=== PATIENT | male | born 1960 | race Caucasian/White ===

== ENCOUNTER 2017-12-01 09:08 | Inpatient (IN) ==
[2017-12-01 10:19] LABS: Bilirubin,Urine Negative (Negative); Blood,Urine Negative (Negative); Clarity,Urine Clear (Clear); Color,Urine Yellow (Yellow); Glucose,Urine (UA) Normal (Normal); Ketones,Urine Negative (Negative); Leukocyte Esterase,Urine Negative (Negative); Nitrite,Urine Negative (Negative); PH,Urine 6.5 pH Units (5.0-8.0); Protein,Urine Trace mg/dL (Neg-Trace); Urobilinogen,Urine Normal (Normal)
[2017-12-01 10:21] LABS: Basophils % 0.5 %; Eosinophils # 0.1 K/mcL (0.0-0.6); Eosinophils % 1.8 %; Hematocrit 37.1 % (37.5-50.1); Hemoglobin 12.7 g/dL (12.9-16.9); Immature Granulocytes % 0.3 % (0-4); Lymphocytes # 1.3 K/mcL (0.6-4.6); Lymphocytes % 22.3 %; Mean Corpuscular HGB Conc 34.2 g/dL (31.6-35.5); Mean Corpuscular Hemoglobin 32.6 pg (28.0-33.3); Mean Corpuscular Volume 95.4 fL (83.0-100.0); Mean Platelet Volume 8.9 fL (9.4-12.4); Monocytes # 0.5 K/mcL (0.0-1.3); Monocytes % 8.8 %; Platelet Count 143 K/mcL (140-400); Red Blood Count 3.89 M/mcL (4.19-5.50); Red Cell Distribution Width 13.6 % (11.5-14.5); Segmented Neutrophils % 66.3 %
[2017-12-01 10:22] LABS: Bacteria,Urine None Seen per hpf (None-Few); Hyaline Casts,Urine None Seen per lpf (None-Few); RBC,Urine 0-3 per hpf (0-3); Squamous Epithelial Cell,Urine Few per lpf (None-Few); WBC,Urine 0-3 per hpf (0-3)
[2017-12-01 10:37] LABS: Amphetamine Screen,Urine Negative ng/mL (Cutoff=1000); Barbiturate Screen,Urine Negative ng/mL (Cutoff=200); Benzodiazepines Screen,Urine Negative ng/mL (Cutoff=200); Cannabinoid Screen,Urine Negative ng/mL (Cutoff = 50); Cocaine Screen,Urine Negative ng/mL (Cutoff= 300); Opiate Screen,Urine Negative ng/mL (Cutoff=300); Phencyclidine Screen,Urine Negative ng/mL (Cutoff=25)
[2017-12-01 10:47] LABS: Acetaminophen < 10 mcg/mL (10-20); Alanine Aminotransferase 9 Units/L (7-52); Albumin 4.1 g/dL (3.5-5.7); Albumin/Globulin Ratio 1.2 (1.1-2.2); Alkaline Phosphatase 66 Units/L (34-104); Aspartate Amino Transferase 9 Units/L (13-39); BUN/Creatinine Ratio 17 (6-26); Bilirubin,Direct 0.1 mg/dL (0.0-0.2); Bilirubin,Indirect 0.4 mg/dL (0.0-1.2); Bilirubin,Total 0.5 mg/dL (0.3-1.0); Blood Urea Nitrogen 24 mg/dL (6-20); Calcium 9.7 mg/dL (8.6-10.3); Carbon Dioxide 33 mEq/L (23-29); Chloride 94 mEq/L (98-107); Ethanol < 10 mg/dL (Less than 10); Globulin 3.3 g/dL (2.4-3.5); Glucose 120 mg/dL (70-105); Osmolality,Calculated 283 (280-300); Potassium 3.7 mEq/L (3.5-5.1); Salicylate < 2.5 mg/dL (15.0-30.0); Sodium 134 mEq/L (136-145); Total Protein 7.4 g/dL (6.4-8.9); eGFR For African Americans > 60 (> 60); eGFR For Non-African Americans 53 (> 60)
[2017-12-01 10:59] LABS: Thyroid Stimulating Hormone 0.611 mcIU/mL (0.340-5.600)
--- NOTE | 2017-12-01 11:04 | Emergency Department Note ---
Disposition Clinical Impression: Suicidal ideation, Acute psychosis Disposition: Admitted As Inpatient Condition: Fair Time of Disposition: 14:49 Psych HPI - General Chief Complaint: ED Psychiatric Symptoms Stated Complaint: Psych eval Time Seen by Provider: 12/01/17 09:31 Source: patient, other Mode of arrival: private vehicle Limitations: no limitations Nursing Notes Reviewed: Yes Vital Signs Reviewed: Yes - History of Present Illness Pt complaint: feels depressed, anxiety, other (Need medicine for schizophrenia, and there are bugs injecting poisonous toxins into me.) If medical clearance, reason: psychiatric condition Onset (ago): week(s) Duration: intermittent, getting worse History of similar episodes: Yes Improves with: medication Worsens with: none Context: not taking psychiatric medications Alleged intoxication: No Associated Psychiatric Symptoms: depression, suicidal ideation, delusions, anxiety Associated symptoms: Reports: denies other symptoms. Denies: confusion, headache, shortness of breath, nausea, vomiting, syncope, insomnia Traumatic symptoms: denies traumatic injury Treatments prior to arrival: none Self harm or harm to others: admits thoughts of self harm, denies having a plan - Related Data Home Medications Medication Instructions Recorded Confirmed Aspirin [Adult Low Dose Aspirin EC] 81 mg PO DAILY PRN 08/16/15 12/01/17 Albuterol Sulfate [Ventolin Hfa] 2 puff IH Q4-6H PRN 12/01/17 12/01/17 Vitamin E 100 unit PO DAILY 12/01/17 12/01/17 Previous Rx's Medication Instructions Recorded Lisinopril-HCTZ 20-12.5 [Prinzide 1 each PO DAILY #21 tablet 04/29/16 20-12.5] Allergies Allergy/AdvReac Type Severity Reaction Status Date / Time acetaminophen [From Vicodin] Allergy Hallucinati Verified 07/18/15 12:34 ng hydrocodone [From Vicodin] Allergy Hallucinati Verified 07/18/15 12:34 ng Penicillins [PCN] Allergy childhood Verified 08/16/15 07:59 reaction "hot feeling inside" aspirin [ASA] AdvReac Abdominal Verified 04/29/16 00:18 Pain All systems ED: reviewed and negative except as stated. Review of Systems: As Per HPI Constitutional: Denies: fever, chills, weakness, weight change Eyes: Denies: eye pain, eye discharge, vision change ENT ED: Denies: ear pain, throat pain, dental pain, hearing loss, epistaxis, congestion, dysphagia Cardiovascular: Denies: chest pain, palpitations, dyspnea on exertion, edema, syncope Respiratory: Denies: cough, dyspnea, wheezes, hemoptysis, stridor Gastrointestinal: Denies: abdominal pain, nausea, vomiting, diarrhea, constipation, hematemesis, melena, hematochezia Genitourinary: Denies: urgency, dysuria, frequency, hematuria Musculoskeletal: Denies: back pain, neck pain, joint swelling, arthralgia, myalgia Integumentary: Denies: rash, abrasion, lesions, pruritus Neurological: Denies: headache, weakness, numbness, paresthesias, confusion, abnormal gait, vertigo Psychiatric: Reports: depression. Denies: anxiety, suicidal thoughts, homicidal thoughts, auditory hallucinations, visual hallucinations Endocrine: Denies: fatigue, heat or cold intolerance, polydipsia, polyuria Hematological/Lymphatic: Denies: easy bleeding, easy bruising, lymphadenopathy Allergic/Immunologic: Denies: facial swelling, urticaria, itchy eyes Past Medical History - Past Medical History Attestation: Yes The following information was validated with the patient. Source: patient Medical history: Reports: COPD, hypertension, kidney stones, migraine Surgical history: Reports: no surgical history Psychiatric history: Reports: anxiety, depression, schizophrenia, other - Social History Smoking Status: Current every day smoker Smokeless Tobacco Status: No Alcohol use: Reports: none, occasionally Drug use: Reports: none, marijuana Physical Exam - General Limitations: no limitations General appearance: alert, in no apparent distress, anxious - Head Head exam: atraumatic, normocephalic, normal inspection - Eye Eye exam: Present: normal appearance, PERRL. Absent: scleral icterus, conjunctival injection, periorbital swelling - ENT ENT exam: mucous membranes dry - Neck Neck exam: Present: normal inspection, full ROM, trachea midline. Absent: tenderness, meningismus, lymphadenopathy - Chest Chest inspection: Present: normal inspection - Respiratory Respiratory exam: Present: normal lung sounds bilaterally. Absent: respiratory distress - Cardiovascular Cardiovascular exam: Present: regular rate, normal rhythm, normal heart sounds - Extremities Exam Extremities exam: Present: full ROM, normal capillary refill. Absent: pedal edema - Expanded Lower Extremity Exam Gait: observed and normal - Back Exam Back exam: Present: normal inspection - Neurological Exam Neurological exam: Present: alert, oriented X3, CN II-XII intact, normal gait - Psychiatric Psychiatric exam: Present: normal affect, normal mood - Skin Skin exam: Present: warm, dry, intact, normal color Course Course Narrative: Patient with history of schizophrenia, presents with a friend for evaluation of depression. He also describes delusions about bugs injecting poison into his body. He has been off his medication for several months. On exam, he is very pleasant, cooperative and conversant. He does seem to be paranoid, and has a definite preoccupation with adventism. His physical exam is normal. Labs have been ordered per [facility] protocol. Patient's labs show renal insufficiency. Creatinine 1.36. He has had similar and even higher creatinines in the past. I suspect dehydration as the patient is homeless. He is, however, tolerating by mouth fluids. The renal insufficiency does not preclude him from psychiatric evaluation. [facility] has been contacted. Patient was seen by [facility] RN Myles. He consulted with the psychiatrist. They feel that the patient would benefit from inpatient evaluation and treatment. They have requested that a pink slip be filled out. Case was discussed with Dr. Cha. He has had [id number] time with the patient and agrees with the assessment, plan. - Consultations Consultation #1: Patient medically cleared [facility] consulted Time: 11:02 Vital Signs Temperature 98.3 F 12/01/17 09:22 Pulse Rate 91 12/01/17 09:22 Respiratory Rate 18 12/01/17 09:22 Blood Pressure 134/93 12/01/17 09:22 O2 Sat by Pulse Oximetry 98 12/01/17 09:22 Temperature 98.6 F 12/01/17 15:40 Pulse Rate 84 12/01/17 15:40 Respiratory Rate 16 12/01/17 15:40 Blood Pressure 162/95 12/01/17 15:40 O2 Sat by Pulse Oximetry 98 12/01/17 09:22 Oxygen Delivery Oxygen Delivery Room Air Psych - Lab Data Lab results reviewed: Yes I reviewed the patient's lab results. Result diagrams: 12/01/17 10:11 12/01/17 10:11 Lab Results 12/01/17 12/01/17 12/01/17 Range/Units 10:06 10:08 10:11 WBC 6.0 (4.3-11.1) K/mcL RBC 3.89 L (4.19-5.50) M/mcL Hgb 12.7 L (12.9-16.9) g/dL Hct 37.1 L (37.5-50.1) % MCV 95.4 (83.0-100.0) fL MCH 32.6 (28.0-33.3) pg MCHC 34.2 (31.6-35.5) g/dL RDW 13.6 (11.5-14.5) % Plt Count 143 (140-400) K/mcL MPV 8.9 L (9.4-12.4) fL Immature Gran % 0.3 (0-4) % Seg Neutrophils % 66.3 % Lymphocytes % 22.3 % Monocytes % 8.8 % Eosinophils % 1.8 % Basophils % 0.5 % Neutrophils # 4.0 (1.6-8.9) K/mcL Lymphocytes # 1.3 (0.6-4.6) K/mcL Monocytes # 0.5 (0.0-1.3) K/mcL Eosinophils # 0.1 (0.0-0.6) K/mcL Basophils # 0.0 (0.0-0.2) K/mcL Sodium (136-145) mEq/L Potassium (3.5-5.1) mEq/L Chloride (98-107) mEq/L Carbon Dioxide (23-29) mEq/L BUN (6-20) mg/dL Creatinine (0.70-1.30) mg/dL Est GFR ( Amer) (> 60) Est GFR (Non-Af Amer) (> 60) BUN/Creatinine Ratio (6-26) Glucose (70-105) mg/dL Calculated Osmolality (280-300) Calcium (8.6-10.3) mg/dL Total Bilirubin (0.3-1.0) mg/dL Direct Bilirubin (0.0-0.2) mg/dL Indirect Bilirubin (0.0-1.2) mg/dL AST (13-39) Units/L ALT (7-52) Units/L Alkaline Phosphatase (34-104) Units/L Serum Total Protein (6.4-8.9) g/dL Albumin (3.5-5.7) g/dL Globulin (2.4-3.5) g/dL Albumin/Globulin Ratio (1.1-2.2) TSH (0.340-5.600) mcIU/mL Urine Color Yellow (Yellow) Urine Clarity Clear (Clear) Urine pH 6.5 (5.0-8.0) pH Units Ur Specific Faison 1.020 (1.010-1.025) Urine Protein Trace (Neg-Trace) mg/dL Urine Glucose (UA) Normal (Normal) mg/dL Urine Ketones Negative (Negative) mg/dL Urine Blood Negative (Negative) Urine Nitrite Negative (Negative) Urine Bilirubin Negative (Negative) Urine Urobilinogen Normal (Normal) mg/dL Ur Leukocyte Esterase Negative (Negative) Urine Microscopic RBC 0-3 (0-3) per hpf Urine Microscopic WBC 0-3 (0-3) per hpf Ur Squamous Epith Cells Few (None-Few) per lpf Urine Bacteria None Seen (None-Few) per hpf Hyaline Casts None Seen (None-Few) per lpf Salicylates (15.0-30.0) mg/dL Urine Opiates Screen Negative (Ywresa=885) ng/mL Acetaminophen (10-20) mcg/mL Ur Barbiturates Screen Negative (Iarllw=198) ng/mL Ur Phencyclidine Scrn Negative (Cutoff=25) ng/mL Ur Amphetamines Screen Negative (Bzrubf=4686) ng/mL U Benzodiazepines Scrn Negative (Xvczfi=596) ng/mL Urine Cocaine Screen Negative (Cutoff= 300) ng/mL U Marijuana (THC) Screen Negative (Cutoff = 50) ng/mL Ethyl Alcohol (Less than 10) mg/dL 12/01/17 Range/Units 10:11 WBC (4.3-11.1) K/mcL RBC (4.19-5.50) M/mcL Hgb (12.9-16.9) g/dL Hct (37.5-50.1) % MCV (83.0-100.0) fL MCH (28.0-33.3) pg MCHC (31.6-35.5) g/dL RDW (11.5-14.5) % Plt Count (140-400) K/mcL MPV (9.4-12.4) fL Immature Gran % (0-4) % Seg Neutrophils % % Lymphocytes % % Monocytes % % Eosinophils % % Basophils % % Neutrophils # (1.6-8.9) K/mcL Lymphocytes # (0.6-4.6) K/mcL Monocytes # (0.0-1.3) K/mcL Eosinophils # (0.0-0.6) K/mcL Basophils # (0.0-0.2) K/mcL Sodium 134 L (136-145) mEq/L Potassium 3.7 (3.5-5.1) mEq/L Chloride 94 L (98-107) mEq/L Carbon Dioxide 33 H (23-29) mEq/L BUN 24 H (6-20) mg/dL Creatinine 1.38 H (0.70-1.30) mg/dL Est GFR ( Amer) > 60 (> 60) Est GFR (Non-Af Amer) 53 L (> 60) BUN/Creatinine Ratio 17 (6-26) Glucose 120 H (70-105) mg/dL Calculated Osmolality 283 (280-300) Calcium 9.7 (8.6-10.3) mg/dL Total Bilirubin 0.5 (0.3-1.0) mg/dL Direct Bilirubin 0.1 (0.0-0.2) mg/dL Indirect Bilirubin 0.4 (0.0-1.2) mg/dL AST 9 L (13-39) Units/L ALT 9 (7-52) Units/L Alkaline Phosphatase 66 (34-104) Units/L Serum Total Protein 7.4 (6.4-8.9) g/dL Albumin 4.1 (3.5-5.7) g/dL Globulin 3.3 (2.4-3.5) g/dL Albumin/Globulin Ratio 1.2 (1.1-2.2) TSH 0.611 (0.340-5.600) mcIU/mL Urine Color (Yellow) Urine Clarity (Clear) Urine pH (5.0-8.0) pH Units Ur Specific Faison (1.010-1.025) Urine Protein (Neg-Trace) mg/dL Urine Glucose (UA) (Normal) mg/dL Urine Ketones (Negative) mg/dL Urine Blood (Negative) Urine Nitrite (Negative) Urine Bilirubin (Negative) Urine Urobilinogen (Normal) mg/dL Ur Leukocyte Esterase (Negative) Urine Microscopic RBC (0-3) per hpf Urine Microscopic WBC (0-3) per hpf Ur Squamous Epith Cells (None-Few) per lpf Urine Bacteria (None-Few) per hpf Hyaline Casts (None-Few) per lpf Salicylates < 2.5 L (15.0-30.0) mg/dL Urine Opiates Screen (Tlynlw=801) ng/mL Acetaminophen < 10 L (10-20) mcg/mL Ur Barbiturates Screen (Xbpzyj=934) ng/mL Ur Phencyclidine Scrn (Cutoff=25) ng/mL Ur Amphetamines Screen (Shmayw=9010) ng/mL U Benzodiazepines Scrn (Fsbcyd=778) ng/mL Urine Cocaine Screen (Cutoff= 300) ng/mL U Marijuana (THC) Screen (Cutoff = 50) ng/mL Ethyl Alcohol < 10 (Less than 10) mg/dL Psychiatric Medical Clearance - Medical Clearance Checklist Does the patient have a NEW psychiatric condition?: Yes Any abnormalities indicating possible medical illness?: No Any history of medical issues?: Yes Medical History: Pneumonia (Acute) Hypoxia (Acute) Uncontrolled hypertension (Acute) Community acquired pneumonia (Acute) COPD exacerbation (Acute) Accelerated hypertension (Acute) Altered mental state (Acute) DVT prophylaxis (Acute) Schizophrenia (Chronic) Calculus of left kidney (Acute) Acute psychosis (Acute) Suicidal ideation (Acute) Hematuria (Inactive) Hypertensive urgency (Inactive) Kidney calculus (Inactive) Left flank pain (Inactive) No Social History Section defined Any abnormal vital signs prior to transfer?: No Current Vitals: Last Vital Signs Temp 98.6 F 12/01/17 15:40 Pulse 84 12/01/17 15:40 Resp 16 12/01/17 15:40 BP 162/95 12/01/17 15:40 Pulse Ox 98 12/01/17 09:22 Is the patient intoxicated or cognitively impaired?: No Psychiatric Lab Panel: Drug Levels and Toxicity 12/01/17 12/01/17 10:08 10:11 Urine Opiates Screen Negative Acetaminophen < 10 L Ur Barbiturates Screen Negative Ur Phencyclidine Scrn Negative Ur Amphetamines Screen Negative U Benzodiazepines Scrn Negative Urine Cocaine Screen Negative U Marijuana (THC) Screen Negative Ethyl Alcohol < 10 Any abnormalities on the physical exam?: No Any abnormal labs?: Yes Abnormal Labs: Abnormal lab results RBC 3.89 M/mcL (4.19-5.50) L 12/01/17 10:11 Hgb 12.7 g/dL (12.9-16.9) L 12/01/17 10:11 Hct 37.1 % (37.5-50.1) L 12/01/17 10:11 MPV 8.9 fL (9.4-12.4) L 12/01/17 10:11 Sodium 134 mEq/L (136-145) L 12/01/17 10:11 Chloride 94 mEq/L (98-107) L 12/01/17 10:11 Carbon Dioxide 33 mEq/L (23-29) H 12/01/17 10:11 BUN 24 mg/dL (6-20) H 12/01/17 10:11 Creatinine 1.38 mg/dL (0.70-1.30) H 12/01/17 10:11 Est GFR (Non-Af Amer) 53 (> 60) L 12/01/17 10:11 Glucose 120 mg/dL (70-105) H 12/01/17 10:11 AST 9 Units/L (13-39) L 12/01/17 10:11 Salicylates < 2.5 mg/dL (15.0-30.0) L 12/01/17 10:11 Acetaminophen < 10 mcg/mL (10-20) L 12/01/17 10:11 If abnormals exist; proposed resolution:: By mouth fluids Does the patient require durable medical equiptment?: No Is the patient ambulatory?: Yes Is the patient a fall risk?: No Has the patient been medically cleared?: Yes Any acute medical condition require Tx prior to transfer?: No Statement of Medical Clearance: I have evaluated the patient, reviewed diagnostic information, and certify that the patient's medical condition is sufficiently stable that transfer to the psychiatric unit does not pose a significant risk of deterioration. Attestation Statement - Attestation Attestation: I, Josh Cha DO have provided [id number] time during the care of this patient. Detailed review the presentation, symptoms, medical history were discussed and reviewed with the mid-level provider Sharyn Villa PA-C/SENIOR COMPENSATION ANALYST. Medical intervention labs and imaging studies were reviewed in detail. See full documentation of physical exam and course of care in the mid-level provider 's note. I agree with the determined course of care, medical intervention and disposition put forth by the mid-level provider. See below documentation for changes or alterations in documentation.
--- NOTE | 2017-12-01 13:00 | Emergency Department Note ---
Disposition Clinical Impression: Suicidal ideation Disposition: Admitted As Inpatient Condition: Good Referrals: NONE,PCP [Primary Care Provider] - Forms: ED Satisfaction Letter Time of Disposition: 13:00 General Adult HPI - General Chief complaint: ED Psychiatric Symptoms Stated complaint: Psych eval Time Seen by Provider: 12/01/17 09:31 Source: patient, other Mode of arrival: private vehicle Limitations: no limitations - History of Present Illness Pain Scale: 5 - Related Data Home Medications Medication Instructions Recorded Confirmed Aspirin [Adult Low Dose Aspirin EC] 81 mg PO DAILY PRN 08/16/15 12/01/17 Vitamin E 100 unit PO 12/01/17 Previous Rx's Medication Instructions Recorded Lisinopril-HCTZ 20-12.5 [Prinzide 1 each PO DAILY #21 tablet 04/29/16 20-12.5] Allergies Allergy/AdvReac Type Severity Reaction Status Date / Time acetaminophen [From Vicodin] Allergy Hallucinati Verified 07/18/15 12:34 ng hydrocodone [From Vicodin] Allergy Hallucinati Verified 07/18/15 12:34 ng Penicillins [PCN] Allergy childhood Verified 08/16/15 07:59 reaction "hot feeling inside" aspirin [ASA] AdvReac Abdominal Verified 04/29/16 00:18 Pain Constitutional: Denies: fever, chills, weakness, weight change Eyes: Denies: eye pain, eye discharge, vision change ENT ED: Denies: ear pain, throat pain, dental pain, hearing loss, epistaxis, congestion, dysphagia Cardiovascular: Denies: chest pain, palpitations, dyspnea on exertion, edema, syncope Respiratory: Denies: cough, dyspnea, wheezes, hemoptysis, stridor Gastrointestinal: Denies: abdominal pain, nausea, vomiting, diarrhea, constipation, hematemesis, melena, hematochezia Genitourinary: Denies: urgency, dysuria, frequency, hematuria Musculoskeletal: Denies: back pain, neck pain, joint swelling, arthralgia, myalgia Integumentary: Denies: rash, abrasion, lesions, pruritus Neurological: Denies: headache, weakness, numbness, paresthesias, confusion, abnormal gait, vertigo Psychiatric: Reports: depression. Denies: anxiety, suicidal thoughts, homicidal thoughts, auditory hallucinations, visual hallucinations Endocrine: Denies: fatigue, heat or cold intolerance, polydipsia, polyuria Hematological/Lymphatic: Denies: easy bleeding, easy bruising, lymphadenopathy Allergic/Immunologic: Denies: facial swelling, urticaria, itchy eyes Past Medical History - Past Medical History Medical history: Reports: COPD, hypertension, kidney stones, migraine Surgical history: Reports: no surgical history Psychiatric history: Reports: anxiety, depression, schizophrenia, other - Social History Smoking Status: Current every day smoker Smokeless Tobacco Status: No Alcohol use: Reports: none, occasionally Drug use: Reports: none, marijuana Physical Exam - General Limitations: no limitations General appearance: alert, in no apparent distress, anxious Course Vital Signs Temperature 98.3 F 12/01/17 09:22 Pulse Rate 91 12/01/17 09:22 Respiratory Rate 18 12/01/17 09:22 Blood Pressure 134/93 12/01/17 09:22 O2 Sat by Pulse Oximetry 98 12/01/17 09:22 Temperature 98.3 F 12/01/17 09:22 Pulse Rate 91 12/01/17 09:22 Respiratory Rate 18 12/01/17 09:22 Blood Pressure 134/93 12/01/17 09:22 O2 Sat by Pulse Oximetry 98 12/01/17 09:22 Oxygen Delivery Oxygen Delivery Room Air Medical Decision Making - Lab Data Result diagrams: 12/01/17 10:11 12/01/17 10:11 Lab Results 12/01/17 12/01/17 12/01/17 Range/Units 10:06 10:08 10:11 WBC 6.0 (4.3-11.1) K/mcL RBC 3.89 L (4.19-5.50) M/mcL Hgb 12.7 L (12.9-16.9) g/dL Hct 37.1 L (37.5-50.1) % MCV 95.4 (83.0-100.0) fL MCH 32.6 (28.0-33.3) pg MCHC 34.2 (31.6-35.5) g/dL RDW 13.6 (11.5-14.5) % Plt Count 143 (140-400) K/mcL MPV 8.9 L (9.4-12.4) fL Immature Gran % 0.3 (0-4) % Seg Neutrophils % 66.3 % Lymphocytes % 22.3 % Monocytes % 8.8 % Eosinophils % 1.8 % Basophils % 0.5 % Neutrophils # 4.0 (1.6-8.9) K/mcL Lymphocytes # 1.3 (0.6-4.6) K/mcL Monocytes # 0.5 (0.0-1.3) K/mcL Eosinophils # 0.1 (0.0-0.6) K/mcL Basophils # 0.0 (0.0-0.2) K/mcL Sodium (136-145) mEq/L Potassium (3.5-5.1) mEq/L Chloride (98-107) mEq/L Carbon Dioxide (23-29) mEq/L BUN (6-20) mg/dL Creatinine (0.70-1.30) mg/dL Est GFR ( Amer) (> 60) Est GFR (Non-Af Amer) (> 60) BUN/Creatinine Ratio (6-26) Glucose (70-105) mg/dL Calculated Osmolality (280-300) Calcium (8.6-10.3) mg/dL Total Bilirubin (0.3-1.0) mg/dL Direct Bilirubin (0.0-0.2) mg/dL Indirect Bilirubin (0.0-1.2) mg/dL AST (13-39) Units/L ALT (7-52) Units/L Alkaline Phosphatase (34-104) Units/L Serum Total Protein (6.4-8.9) g/dL Albumin (3.5-5.7) g/dL Globulin (2.4-3.5) g/dL Albumin/Globulin Ratio (1.1-2.2) TSH (0.340-5.600) mcIU/mL Urine Color Yellow (Yellow) Urine Clarity Clear (Clear) Urine pH 6.5 (5.0-8.0) pH Units Ur Specific [place] 1.020 (1.010-1.025) Urine Protein Trace (Neg-Trace) mg/dL Urine Glucose (UA) Normal (Normal) mg/dL Urine Ketones Negative (Negative) mg/dL Urine Blood Negative (Negative) Urine Nitrite Negative (Negative) Urine Bilirubin Negative (Negative) Urine Urobilinogen Normal (Normal) mg/dL Ur Leukocyte Esterase Negative (Negative) Urine Microscopic RBC 0-3 (0-3) per hpf Urine Microscopic WBC 0-3 (0-3) per hpf Ur Squamous Epith Cells Few (None-Few) per lpf Urine Bacteria None Seen (None-Few) per hpf Hyaline Casts None Seen (None-Few) per lpf Salicylates (15.0-30.0) mg/dL Urine Opiates Screen Negative (Wetpdp=974) ng/mL Acetaminophen (10-20) mcg/mL Ur Barbiturates Screen Negative (Wyabbo=536) ng/mL Ur Phencyclidine Scrn Negative (Cutoff=25) ng/mL Ur Amphetamines Screen Negative (Ekleea=0435) ng/mL U Benzodiazepines Scrn Negative (Bkyqtp=070) ng/mL Urine Cocaine Screen Negative (Cutoff= 300) ng/mL U Marijuana (THC) Screen Negative (Cutoff = 50) ng/mL Ethyl Alcohol (Less than 10) mg/dL 12/01/17 Range/Units 10:11 WBC (4.3-11.1) K/mcL RBC (4.19-5.50) M/mcL Hgb (12.9-16.9) g/dL Hct (37.5-50.1) % MCV (83.0-100.0) fL MCH (28.0-33.3) pg MCHC (31.6-35.5) g/dL RDW (11.5-14.5) % Plt Count (140-400) K/mcL MPV (9.4-12.4) fL Immature Gran % (0-4) % Seg Neutrophils % % Lymphocytes % % Monocytes % % Eosinophils % % Basophils % % Neutrophils # (1.6-8.9) K/mcL Lymphocytes # (0.6-4.6) K/mcL Monocytes # (0.0-1.3) K/mcL Eosinophils # (0.0-0.6) K/mcL Basophils # (0.0-0.2) K/mcL Sodium 134 L (136-145) mEq/L Potassium 3.7 (3.5-5.1) mEq/L Chloride 94 L (98-107) mEq/L Carbon Dioxide 33 H (23-29) mEq/L BUN 24 H (6-20) mg/dL Creatinine 1.38 H (0.70-1.30) mg/dL Est GFR ( Amer) > 60 (> 60) Est GFR (Non-Af Amer) 53 L (> 60) BUN/Creatinine Ratio 17 (6-26) Glucose 120 H (70-105) mg/dL Calculated Osmolality 283 (280-300) Calcium 9.7 (8.6-10.3) mg/dL Total Bilirubin 0.5 (0.3-1.0) mg/dL Direct Bilirubin 0.1 (0.0-0.2) mg/dL Indirect Bilirubin 0.4 (0.0-1.2) mg/dL AST 9 L (13-39) Units/L ALT 9 (7-52) Units/L Alkaline Phosphatase 66 (34-104) Units/L Serum Total Protein 7.4 (6.4-8.9) g/dL Albumin 4.1 (3.5-5.7) g/dL Globulin 3.3 (2.4-3.5) g/dL Albumin/Globulin Ratio 1.2 (1.1-2.2) TSH 0.611 (0.340-5.600) mcIU/mL Urine Color (Yellow) Urine Clarity (Clear) Urine pH (5.0-8.0) pH Units Ur Specific [place] (1.010-1.025) Urine Protein (Neg-Trace) mg/dL Urine Glucose (UA) (Normal) mg/dL Urine Ketones (Negative) mg/dL Urine Blood (Negative) Urine Nitrite (Negative) Urine Bilirubin (Negative) Urine Urobilinogen (Normal) mg/dL Ur Leukocyte Esterase (Negative) Urine Microscopic RBC (0-3) per hpf Urine Microscopic WBC (0-3) per hpf Ur Squamous Epith Cells (None-Few) per lpf Urine Bacteria (None-Few) per hpf Hyaline Casts (None-Few) per lpf Salicylates < 2.5 L (15.0-30.0) mg/dL Urine Opiates Screen (Qyxsvk=633) ng/mL Acetaminophen < 10 L (10-20) mcg/mL Ur Barbiturates Screen (Cqzezb=066) ng/mL Ur Phencyclidine Scrn (Cutoff=25) ng/mL Ur Amphetamines Screen (Zerifl=8429) ng/mL U Benzodiazepines Scrn (Tdgthr=761) ng/mL Urine Cocaine Screen (Cutoff= 300) ng/mL U Marijuana (THC) Screen (Cutoff = 50) ng/mL Ethyl Alcohol < 10 (Less than 10) mg/dL Attestation Statement - Attestation Attestation: Josh Munoz DO have provided [id number] time during the care of this patient. Detailed review the presentation, symptoms, medical history were discussed and reviewed with the mid-level provider Sharyn Villa PA-C/PLASTER MECHANIC. Medical intervention labs and imaging studies were reviewed in detail. See full documentation of physical exam and course of care in the mid-level provider 's note. I agree with the determined course of care, medical intervention and disposition put forth by the mid-level provider. See below documentation for changes or alterations in documentation. Patient presents emergency room with active suicidal ideation. He has long- standing psychiatric history and illness. Patient was seen and evaluated and treated for medical clearance here in the emergency room. He was then seen and evaluated by the psychiatric team and they are going to admit far facility at this point. See detailed documentation of the physical exam, medical intervention, medical decision-making and disposition the mid-level provider's note. Patient has been clinically stable throughout the treatment course. No other intervention required at this time. Patient otherwise has not required any medical necessity intervention on her of care. Patient is otherwise stable at the time of admission.
[2017-12-01] MEDS ORDERED: Haloperidol Lactate 5 MG/ML VIAL IM PRN (14:59)
[2017-12-01] MEDS ORDERED: *HR* LORazepam 2 MG/ML VIAL IM PRN (14:59)
[2017-12-01] MEDS ORDERED: MOM Conc 10 ML UD.LIQ PO PRN (14:59)
[2017-12-01] MEDS ORDERED: *HR* LORazepam 1 MG TABLET PO PRN (14:59)
[2017-12-01] MEDS ORDERED: Nicotine 2 MG GUM BC PRN (15:39)
[2017-12-01] MEDS: Lisinopril-HCTZ 20-12.5mg TABLET PO SCH (16:06)
[2017-12-02] MEDS: Lisinopril-HCTZ 20-12.5mg TABLET PO SCH (08:09)
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
[2017-12-02] MEDS: traZODone 50 MG TABLET PO PRN (20:22)
[2017-12-02] MEDS: hydrOXYzine pamoate 25 MG CAPSULE PO PRN (20:22)
[2017-12-03] MEDS: Lisinopril-HCTZ 20-12.5mg TABLET PO SCH (08:45)
[2017-12-03] MEDS: risperiDONE 0.25 MG TABLET PO SCH ×2 (09:21→21:33)
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
[2017-12-03] MEDS: traZODone 50 MG TABLET PO PRN (21:33)
[2017-12-04] MEDS: Lisinopril-HCTZ 20-12.5mg TABLET PO SCH (08:42)
[2017-12-04] MEDS: risperiDONE 0.25 MG TABLET PO SCH ×2 (08:42→20:35)
[2017-12-04] MEDS: Aspirin Enteric Coated 81 MG Tablet PO PRN (08:42)
[2017-12-04] MEDS: Nicotine 21 MG PATCH.TD24 TD SCH (09:06)
--- NOTE | 2017-12-04 09:32 | Psychiatry Progress Note ---
Date of Encounter: 12/04/17 Time of Encounter: 08:25 Subjective Interval history: Camilo is seen today for follow-up. He reports having some dizziness which she states has been going on for a while. Last night he was again after checking his blood pressure and he almost fell but caught himself. Patient has been placed on fall precautions and will be moved to a hospital bed. Jimmie is really unable to verbalize physical symptoms and says yes to almost any question asked of him regarding physical complaints. He remains delusional and does report hearing the voice of God. He denies suicidal ideation. He is reporting some musculoskeletal pain in his back and neck. Review of Systems Musculoskeletal: Reports: back pain, joint pain Neurological: Reports: headache, abnormal gait, vertigo Psychiatric: Reports: anxiety, abnormal sleep pattern, auditory hallucinations, confusion, hopelessness, mood swings, panic attacks. Denies: suicidal ideation , visual hallucinations Results - Vital Signs Vital Signs: Temp Pulse Resp BP Pulse Ox 98.0 F 94 14 116/75 98 12/03/17 21:30 12/03/17 21:30 12/03/17 21:30 12/03/17 21:30 12/01/17 09:22 Assessment and Plan (1) Psychosis Current visit: Yes Status: Acute Plan: Continue hospitalization, Close observation, Suicide Precautions per unit protocol, Encourage participation in unit milieu, Group Therapy, Monitor sleep, Monitor appetite Additional Plan: Continue current meds. Patient remains delusional. Increased meds slowly to prevent side effects. Risks, benefits, side effects, alternatives discussed w/pt: Yes Patient agreeable to treatment: Yes Qualifiers: Psychosis type: unspecified psychosis type Qualified Code(s): F29 - Unspecified psychosis not due to a substance or known physiological condition (2) Anxiety Current visit: Yes Status: Acute Plan: Continue hospitalization, Close observation, Suicide Precautions per unit protocol, Encourage participation in unit milieu, Group Therapy, Monitor sleep, Monitor appetite Additional Plan: Encourage positive coping strategies. Risks, benefits, side effects, alternatives discussed w/pt: Yes Patient agreeable to treatment: Yes (3) Dizziness Current visit: Yes Status: Acute Plan: Continue hospitalization Additional Plan: We will continue to monitor blood pressure and moved patient to hospital bed for closer monitoring. We will consider hospitalist consult. Patient has had some chronic issues with gait and also headache. We will see if we can get patient's mental status improves so he can engage in meaningful conversation with medical staff regarding his symptoms and how long they have been going on. Patient also was recently started on BP meds that he was not taking as an outpatient even though he was supposed to. Some of his dizziness and gait disturbance could be from patient not being used to lower blood pressure. Consult Discharge Plan - Plan Referrals: [facility] [place] - 01/05/18 3:30 pm (The above appointment is with Urmila Gimenez. When you come to your first appointment, you will be completing paperwork, meeting with a counselor, and developing a treatment plan. You will receive follow- up appointments for on-going services , which could include community support, mental health and substance abuse counseling, groups/partial hospitalization programming, medication assisted treatment, and psychiatric medication management. Please bring the following with you to your first visit to the clinic: 1) proof of household income (two consecutive pay stubs, social security award letter, bank statement, statement letter from [facility], child support statement, IRS 1040 or W2 form, or a statement from the person who financially supports you stating they help provide for your basic needs), 2) proof of residency (drivers license, a piece of mail showing your address, a statement from person you live with verifying you live at their address), 3) your social security card, 4) photo ID, 5) your insurance card (if you have commercial insurance you must call to obtain a prior authorization number before you arrive to your first appointment) and 6) if you do not have insurance but have applied for Medicaid, please bring verification you have applied. The above appointment(s) reflects first availability. You may contact the office regularly to check for cancellations that may allow you to be seen sooner.) [facility] Representative [employer] [facility] [Outside] - 12/07/17 1:00 pm (The above appointment is with Aixa Gonzalez for primary healthcare services. If you are unable to keep this appointment, 24 hour business notice of cancellation is expected. The above appointment(s) reflects first availability. You may contact the office regularly to check for cancellations that may allow you to be seen sooner.) Psychiatry Exam - Constitutional Vitals: Temp Pulse Resp BP Pulse Ox 98.0 F 94 14 116/75 98 12/03/17 21:30 12/03/17 21:30 12/03/17 21:30 12/03/17 21:30 12/01/17 09:22 General appearance: well-groomed, thin - Musculoskeletal Gait: unsteady, shuffling Station: relaxed Strength & Tone: normal for patient - Psychiatric Patient Orientation: Yes Person, Yes Place Level of alertness: Alert Behavior: guarded, suspicious Psychomotor activity: Normal Eye Contact: Intense Contact Mood Description: Euthymic/stable Affect description: flat Speech Volume: Soft/Quiet Speech pattern: normal rate, normal rhythm, normal tone Language & Vocabulary: consistent with education Thought Process: Loose Associations, Flight of Ideas, Thought Blocking Thought Content: No Suicidal ideation, No Homicidal ideation, Yes Paranoid delusion, Yes Religion delusion, Yes Thought broadcasting Perceptual Disturbances: Yes Reacting to internal stimuli, Yes Auditory hallucinations, No Visual hallucinations Attention Span Ability: Capable of Focused Attention Memory Description: Grossly Intact Patient Reliability: Questionable Historian Fund of knowledge: Yes average Intelligence Estimate: Average Judgment: Poor Insight: None
[2017-12-04] MEDS: Acetaminophen 325 MG TABLET PO PRN (20:35)
[2017-12-04] MEDS: traZODone 50 MG TABLET PO PRN (20:39)
[2017-12-05] MEDS: hydrOXYzine pamoate 25 MG CAPSULE PO PRN (02:19)
[2017-12-05] MEDS: risperiDONE 0.25 MG TABLET PO SCH ×2 (10:06→21:07)
[2017-12-05] MEDS: Lisinopril-HCTZ 20-12.5mg TABLET PO SCH (10:06)
[2017-12-05] MEDS: Nicotine 21 MG PATCH.TD24 TD SCH (10:07)
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
[2017-12-06] MEDS: risperiDONE 0.25 MG TABLET PO SCH ×2 (08:12→21:38)
[2017-12-06] MEDS: Nicotine 21 MG PATCH.TD24 TD SCH (08:12)
[2017-12-06] MEDS: Lisinopril-HCTZ 20-12.5mg TABLET PO SCH (08:12)
--- NOTE | 2017-12-06 13:22 | Psychiatry Progress Note ---
Date of Encounter: 12/06/17 Time of Encounter: 13:00 Subjective Interval history: The patient came met with me. 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 His comment while inappropriate is more in line with patient's previous communication. The patient does report hearing the voice of God does report knowledge of angels and special knowledge to read the minds of others based on his knowledge of the Bible. He has spiritism and grandiose delusions but these are muted compared to how they were previously. He estimates that he needs to be in until December 12 but when told his next appointment was not for a month said that he hoped his mother would let him back home soon. The patient's been on risperidone 0.5 mg twice a day. The patient has reported headaches the headaches have been associated with taking aspirin and Naprosyn ibuprofen. The patient identifies headache as an adverse effect of the analgesic medicines that he was taking. Also reported that he is taking these in increased amounts. Nonetheless the patient has not come to the desk and complained of headaches he has not been observed in his room complaining of headaches he did not acknowledge photophobia or hyperacusis associated with headaches and nausea associated with headaches and reports that they come and go throughout the day. They tend to occur over the forehead and are not limited to one side to the other he did not describe an aura. Patient has reported that he has difficulty walking and cannot walk like he used to. Additional testing was done the patient has no dysmetria dysdiadochokinesis or dysarthria but he did have an beat nystagmus. The lateral nystagmus persisted through several tests when in lateral gaze. He did not have vertical nystagmus. At this point the patient might benefit from neurology consultation he does not have any recent brain imaging his gait disturbance is mildly improved but still persists even with the treatment of his hypertension Review of Systems Neurological: Reports: headache, weakness, abnormal gait Psychiatric: Reports: anxiety, abnormal sleep pattern, auditory hallucinations, confusion, hopelessness, mood swings, panic attacks. Denies: suicidal ideation , visual hallucinations Results - Vital Signs Vital Signs: Temp Pulse Resp BP Pulse Ox 97.8 F 85 16 137/85 98 12/06/17 08:26 12/06/17 08:26 12/06/17 08:26 12/06/17 08:26 12/01/17 09:22 Assessment and Plan (1) Difficulty in walking, not elsewhere classified Current visit: Yes Status: Acute Plan: Monitor sleep, Secure weapons Risks, benefits, side effects, alternatives discussed w/pt: Yes Patient agreeable to treatment: Yes (consult ) (2) Dizziness and giddiness Current visit: Yes Status: Acute Plan: Continue hospitalization, Close observation, Monitor appetite Risks, benefits, side effects, alternatives discussed w/pt: Yes Patient agreeable to treatment: Yes (fall precaution) (3) Uncontrolled hypertension Current visit: No Status: Acute Plan: Continue hospitalization, Encourage participation in unit milieu Risks, benefits, side effects, alternatives discussed w/pt: Yes Patient agreeable to treatment: Yes (4) Schizophrenia Current visit: No Status: Acute Plan: Suicide Precautions per unit protocol, Group Therapy, Family/Supportive other meeting Risks, benefits, side effects, alternatives discussed w/pt: Yes Patient agreeable to treatment: Yes Qualifiers: Schizophrenia type: disorganized schizophrenia Qualified Code(s): F20.1 - Disorganized schizophrenia (5) Suicidal ideation Current visit: Yes Status: Acute Plan: Continue hospitalization, Suicide Precautions per unit protocol Risks, benefits, side effects, alternatives discussed w/pt: Yes Patient agreeable to treatment: Yes (6) Headache Current visit: Yes Status: Acute Plan: Continue hospitalization, Close observation, Monitor appetite Risks, benefits, side effects, alternatives discussed w/pt: Yes Patient agreeable to treatment: Yes Qualifiers: Headache type: unspecified Headache chronicity pattern: episodic headache Intractability: not intractable Qualified Code(s): R51 - Headache Consult Discharge Plan - Plan Referrals: [facility] [Outside] (The above appointment is with Rafael for outpatient mental health counseling and case management services.) [facility] [Outside] - 01/05/18 10:00 am (The above appointment is Katja Mackay Daily for outpatient psychiatric assessment and medication management services. Please arrive 30 minutes early to complete paperwork. Please bring your photo ID (bring proof of address if you do not have an ID) and medication list. The above appointment(s) reflects first availability. You may contact the office regularly to check for cancellations that may allow you to be seen sooner. ) [facility] [Outside] - 12/22/17 1:45 pm (The above appointment is with Aixa Gonzalez for primary healthcare services. If you are unable to keep this appointment, 24 hour business notice of cancellation is expected. The above appointment(s) reflects first availability. You may contact the office regularly to check for cancellations that may allow you to be seen sooner.) Psychiatry Exam - Constitutional Vitals: Temp Pulse Resp BP Pulse Ox 97.8 F 85 16 137/85 98 12/06/17 08:26 12/06/17 08:12/06/17 08:12/06/17 08:12/01/17 09:22 General appearance: age & developmentally appropriate, well-groomed, well- nourished - Musculoskeletal Gait: slow, other Station: relaxed Strength & Tone: normal for patient - Psychiatric Patient Orientation: Yes Person, Yes Time, Yes Place Level of alertness: Alert Behavior: calm, cooperative Psychomotor activity: Normal Eye Contact: Maintains Eye Contact Mood Description: Euthymic/stable Affect description: congruent with mood, full range, inappropriate to situation Speech Volume: Normal Speech pattern: normal rate, normal rhythm, normal tone, fluent, spontaneous, inappropriate to situation Language & Vocabulary: consistent with education Thought Process: Linear, Circumstantial, Loose Associations Thought Content: No Suicidal ideation, No Homicidal ideation, No Overt delusions , Yes Ideas of reference, Yes Pentecostalism delusion, Yes Grandiose delusion Perceptual Disturbances: Yes Auditory hallucinations, No Visual hallucinations Attention Span Ability: Capable of Sustained Attention Memory Description: Grossly Intact Fund of knowledge: Yes abstraction ability, Yes aware of current events Intelligence Estimate: Average Judgment: Limited Insight: Minimal
[2017-12-06] MEDS: traZODone 50 MG TABLET PO PRN (21:39)
[2017-12-07] MEDS: Lisinopril-HCTZ 20-12.5mg TABLET PO SCH (08:45)
[2017-12-07] MEDS: Nicotine 21 MG PATCH.TD24 TD SCH (08:45)
[2017-12-07] MEDS: risperiDONE 0.25 MG TABLET PO SCH (08:45)
--- NOTE | 2017-12-07 11:26 | Psychiatry Progress Note ---
Date of Encounter: 12/07/17 Time of Encounter: 11:23 Subjective Interval history: Client is pleasant but still hyperverbal with grandiose and roman catholic delusions. Plan was to consult Neurology for gait abnormalities. Do not think he can participate meaningfully in a Neurology consult until his psychosis is improved. Taking a very low dose of Risperdal. Will increase dose today. Staff report he is improving but would likely still benefit from an increase in his medication. A little unsteady today but he is walking about the unit without too much trouble. Takes small steps but gait is not grossly abnormal today. Review of Systems Constitutional: Reports: weakness Eyes: Denies: eye pain, vision change Ears, Nose, Throat: Denies: ear pain, throat pain, dental pain, hearing loss, congestion Cardiovascular: Denies: chest pain, palpitations, dyspnea on exertion Respiratory: Denies: cough, dyspnea, wheezes Gastrointestinal: Denies: abdominal pain, nausea, vomiting, diarrhea, constipation Musculoskeletal: Reports: back pain, myalgia Neurological: Reports: weakness, abnormal gait Psychiatric: Reports: anxiety, abnormal sleep pattern, auditory hallucinations, confusion, hopelessness, mood swings, panic attacks. Denies: suicidal ideation , visual hallucinations Results - Vital Signs Vital Signs: Temp Pulse Resp BP Pulse Ox 98.2 F 101 18 140/96 98 12/07/17 09:00 12/07/17 09:00 12/07/17 09:00 12/07/17 09:00 12/01/17 09:22 Assessment and Plan (1) Schizophrenia Current visit: No Status: Acute Plan: Continue hospitalization, Close observation, Suicide Precautions per unit protocol, Encourage participation in unit milieu, Group Therapy, Monitor sleep, Monitor appetite Risks, benefits, side effects, alternatives discussed w/pt: Yes Patient agreeable to treatment: Yes Qualifiers: Schizophrenia type: disorganized schizophrenia Qualified Code(s): F20.1 - Disorganized schizophrenia Consult Discharge Plan - Plan Referrals: [facility] [Outside] (The above appointment is with Rafael for outpatient mental health counseling and case management services.) [facility] [Outside] - 01/05/18 10:00 am (The above appointment is Katja Mackay Daily for outpatient psychiatric assessment and medication management services. Please arrive 30 minutes early to complete paperwork. Please bring your photo ID (bring proof of address if you do not have an ID) and medication list. The above appointment(s) reflects first availability. You may contact the office regularly to check for cancellations that may allow you to be seen sooner. ) [facility] [Outside] - 12/22/17 1:45 pm (The above appointment is with Aixa Gonzalez for primary healthcare services. If you are unable to keep this appointment, 24 hour business notice of cancellation is expected. The above appointment(s) reflects first availability. You may contact the office regularly to check for cancellations that may allow you to be seen sooner.) Psychiatry Exam - Constitutional Vitals: Temp Pulse Resp BP Pulse Ox 98.2 F 101 18 140/96 98 12/07/17 09:00 12/07/17 09:00 12/07/17 09:00 12/07/17 09:00 12/01/17 09:22 General appearance: age & developmentally appropriate, well-groomed, well- nourished - Musculoskeletal Gait: unsteady Station: relaxed Strength & Tone: mild weakness - Psychiatric Patient Orientation: Yes Person, Yes Time, Yes Place Level of alertness: Alert Behavior: calm, cooperative Psychomotor activity: Slowed Eye Contact: Maintains Eye Contact Mood Description: Depressed Affect description: congruent with mood Speech Volume: Soft/Quiet Speech pattern: rambling Thought Process: Tangential Thought Content: No Suicidal ideation, No Homicidal ideation, Yes Anglican delusion, Yes Grandiose delusion Perceptual Disturbances: No Auditory hallucinations, No Visual hallucinations Attention Span Ability: Capable of Focused Attention Memory Description: Grossly Intact Patient Reliability: Questionable Historian Fund of knowledge: Yes abstraction ability, Yes aware of current events Intelligence Estimate: Average Judgment: Limited Insight: Partial
[2017-12-07] MEDS ORDERED: Ondansetron ODT 4 MG TAB.RAPDIS SL PRN (20:49)
[2017-12-07] MEDS: risperiDONE 1 MG TABLET PO SCH (22:19)
[2017-12-07] MEDS: traZODone 50 MG TABLET PO PRN (22:19)
[2017-12-08] MEDS: risperiDONE 1 MG TABLET PO SCH ×2 (09:43→20:38)
[2017-12-08] MEDS: Lisinopril-HCTZ 20-12.5mg TABLET PO SCH (09:43)
[2017-12-08] MEDS: Nicotine 21 MG PATCH.TD24 TD SCH (09:44)
--- NOTE | 2017-12-08 12:24 | Psychiatry Progress Note ---
Date of Encounter: 12/08/17 Time of Encounter: 11:15 Subjective Interval history: Patient seen for follow-up. Case discussed with treatment team. Staff report he is medication compliant, continued to have delusions and lutheran preoccupation. He is reported confused at times, no suicidal or homicidal ideation. Somatic complaints stomach pain and nausea and vomiting. Partially attend groups. Review of Systems Psychiatric: Reports: anxiety, abnormal sleep pattern, auditory hallucinations, confusion, hopelessness, mood swings, panic attacks. Denies: suicidal ideation , visual hallucinations Results - Vital Signs Vital Signs: Temp Pulse Resp BP Pulse Ox 99.2 F 83 18 112/73 98 12/08/17 09:00 12/08/17 09:00 12/08/17 09:00 12/08/17 09:00 12/01/17 09:22 Assessment and Plan (1) Schizophrenia Current visit: No Status: Acute Plan: Continue hospitalization, Close observation, Suicide Precautions per unit protocol, Encourage participation in unit milieu, Group Therapy, Monitor sleep, Monitor appetite Risks, benefits, side effects, alternatives discussed w/pt: Yes Patient agreeable to treatment: Yes Qualifiers: Schizophrenia type: paranoid schizophrenia Qualified Code(s): F20.0 - Paranoid schizophrenia Consult Discharge Plan - Plan Referrals: [facility] [employer] [facility] [Outside] (The above appointment is with Rafael for outpatient mental health counseling and case management services.) [facility] [Outside] - 01/05/18 10:00 am (The above appointment is Katja Mackay Daily for outpatient psychiatric assessment and medication management services. Please arrive 30 minutes early to complete paperwork. Please bring your photo ID (bring proof of address if you do not have an ID) and medication list. The above appointment(s) reflects first availability. You may contact the office regularly to check for cancellations that may allow you to be seen sooner. ) [facility] [Outside] - 12/22/17 1:45 pm (The above appointment is with Aixa Gonzalez for primary healthcare services. If you are unable to keep this appointment, 24 hour business notice of cancellation is expected. The above appointment(s) reflects first availability. You may contact the office regularly to check for cancellations that may allow you to be seen sooner.) Psychiatry Exam - Constitutional Vitals: Temp Pulse Resp BP Pulse Ox 99.2 F 83 18 112/73 98 12/08/17 09:00 12/08/17 09:00 12/08/17 09:00 12/08/17 09:00 12/01/17 09:22 General appearance: age & developmentally appropriate, well-nourished, disheveled, bizarre - Musculoskeletal Gait: slow Station: relaxed Strength & Tone: normal for patient - Psychiatric Patient Orientation: Yes Person, Yes Time, Yes Place Level of alertness: Alert Behavior: calm, cooperative, guarded, withdrawn Psychomotor activity: Slowed Eye Contact: Minimal Contact Mood Description: Anxious, Labile Affect description: congruent with mood, dysphoric, anxious Speech Volume: Soft/Quiet Speech pattern: normal rate, normal rhythm, normal tone, fluent, spontaneous, disorganized Language & Vocabulary: consistent with education Thought Process: Tangential, Disorganized Thought Content: No Suicidal ideation, No Homicidal ideation, No Overt delusions , Yes Preoccupation, Yes Paranoid delusion, Yes Restorationist delusion Perceptual Disturbances: No Auditory hallucinations, No Visual hallucinations Attention Span Ability: Unable to Focus Memory Description: Grossly Intact Patient Reliability: Questionable Historian Fund of knowledge: Yes abstraction ability, Yes aware of current events Intelligence Estimate: Average Judgment: Limited Insight: Partial
[2017-12-08] MEDS: traZODone 50 MG TABLET PO PRN (20:38)
[2017-12-08] MEDS: hydrOXYzine pamoate 25 MG CAPSULE PO PRN (20:38)
[2017-12-09] MEDS: Lisinopril-HCTZ 20-12.5mg TABLET PO SCH (09:46)
[2017-12-09] MEDS: risperiDONE 1 MG TABLET PO SCH ×2 (09:46→20:35)
[2017-12-09] MEDS: Nicotine 21 MG PATCH.TD24 TD SCH (09:46)
[2017-12-09] MEDS ORDERED: traZODone 50 MG TABLET PO PRN (15:44)
--- NOTE | 2017-12-09 15:49 | Psychiatry Progress Note ---
Date of Encounter: 12/09/17 Time of Encounter: 15:45 Subjective Interval history: Patient seen for follow-up. Case discussed with treatment team. Staff report he is showing confusion at times, compliant with medication, and attend groups. No reports of overt hallucination or psychosis. Denies suicidal ideation. Calm and cooperative poverty of speech. Review of Systems Psychiatric: Reports: anxiety, abnormal sleep pattern, auditory hallucinations, confusion, hopelessness, mood swings, panic attacks. Denies: suicidal ideation , visual hallucinations Results - Vital Signs Vital Signs: Temp Pulse Resp BP Pulse Ox 98.5 F 99 16 115/72 98 12/09/17 08:45 12/09/17 08:45 12/09/17 08:45 12/09/17 08:45 12/01/17 09:22 Assessment and Plan (1) Schizophrenia Current visit: No Status: Acute Plan: Continue hospitalization, Close observation, Suicide Precautions per unit protocol, Encourage participation in unit milieu, Group Therapy, Monitor sleep, Monitor appetite Additional Plan: Increase trazodone to 100 mg at bedtime. Medical consult was ordered to evaluate abdominal pain and nausea and vomiting. Risks, benefits, side effects, alternatives discussed w/pt: Yes Patient agreeable to treatment: Yes Qualifiers: Schizophrenia type: paranoid schizophrenia Qualified Code(s): F20.0 - Paranoid schizophrenia Consult Discharge Plan - Plan Referrals: Inte [facility] [Outside] (The above appointment is with Rafael for outpatient mental health counseling and case management services.) Integrated [facility] [Outside] - 01/05/18 10:00 am (The above appointment is Katja Mackay Daily for outpatient psychiatric assessment and medication management services. Please arrive 30 minutes early to complete paperwork. Please bring your photo ID (bring proof of address if you do not have an ID) and medication list. The above appointment(s) reflects first availability. You may contact the office regularly to check for cancellations that may allow you to be seen sooner. ) [facility] - 12/22/17 1:45 pm (The above appointment is with Aixa Gonzalez for primary healthcare services. If you are unable to keep this appointment, 24 hour business notice of cancellation is expected. The above appointment(s) reflects first availability. You may contact the office regularly to check for cancellations that may allow you to be seen sooner.) Psychiatry Exam - Constitutional Vitals: Temp Pulse Resp BP Pulse Ox 98.5 F 99 16 115/72 98 12/09/17 08:45 12/09/17 08:45 12/09/17 08:45 12/09/17 08:45 12/01/17 09:22 General appearance: age & developmentally appropriate, well-groomed, well- nourished - Musculoskeletal Gait: normal Station: relaxed Strength & Tone: normal for patient - Psychiatric Patient Orientation: Yes Person, Yes Time, Yes Place Level of alertness: Sedated Behavior: calm, cooperative, guarded, suspicious Psychomotor activity: Normal Eye Contact: Maintains Eye Contact Mood Description: Euthymic/stable Affect description: congruent with mood, full range Speech Volume: Normal Speech pattern: normal rate, normal rhythm, normal tone, fluent, impoverished Language & Vocabulary: consistent with education Thought Process: Linear, Goal Oriented Thought Content: No Suicidal ideation, No Homicidal ideation, No Overt delusions Perceptual Disturbances: No Auditory hallucinations, No Visual hallucinations Attention Span Ability: Unable to Focus Memory Description: Grossly Intact Patient Reliability: Questionable Historian Fund of knowledge: Yes abstraction ability, Yes aware of current events Intelligence Estimate: Average Judgment: Limited Insight: Partial
[2017-12-09] MEDS: Acetaminophen 325 MG TABLET PO PRN (20:35)
[2017-12-09] MEDS: Mag Hydrox/Al Hydrox/Simeth 30 ML UDC PO PRN (20:35)
[2017-12-09] MEDS: hydrOXYzine pamoate 25 MG CAPSULE PO PRN (20:35)
[2017-12-10] MEDS: Nicotine 21 MG PATCH.TD24 TD SCH (09:01)
[2017-12-10] MEDS: risperiDONE 1 MG TABLET PO SCH ×2 (09:02→20:46)
[2017-12-10] MEDS: Lisinopril-HCTZ 20-12.5mg TABLET PO SCH (09:02)
--- NOTE | 2017-12-10 14:25 | Psychiatry Progress Note ---
Date of Encounter: 12/10/17 Time of Encounter: 14:23 Subjective Interval history: Patient is seen for follow-up. Case discussed with treatment team. Staff report patient is calm and isolated and seemed to be depressed. He participated partially and activities and groups. No reports of agitation or active psychotic behavior. He reports recurrent symptoms of abdominal pain nausea vomiting and medical consult was ordered yesterday. No overt psychosis is noticed for the last couple days. Review of Systems Psychiatric: Reports: anxiety, abnormal sleep pattern, auditory hallucinations, confusion, hopelessness, mood swings, panic attacks. Denies: suicidal ideation , visual hallucinations Results - Vital Signs Vital Signs: Temp Pulse Resp BP Pulse Ox 97.9 F 79 14 131/86 98 12/10/17 09:00 12/10/17 09:00 12/10/17 09:00 12/10/17 09:00 12/01/17 09:22 Assessment and Plan (1) Schizophrenia Current visit: No Status: Acute Plan: Continue hospitalization, Close observation, Suicide Precautions per unit protocol, Encourage participation in unit milieu, Group Therapy, Monitor sleep, Monitor appetite Additional Plan: Cymbalta 30 mg daily for depression. Benefits and side effect were discussed was patient he is agreeable. Risks, benefits, side effects, alternatives discussed w/pt: Yes Patient agreeable to treatment: Yes Qualifiers: Schizophrenia type: paranoid schizophrenia Qualified Code(s): F20.0 - Paranoid schizophrenia Consult Discharge Plan - Plan Referrals: Inte [facility] [Outside] (The above appointment is with Rafael for outpatient mental health counseling and case management services.) Integrated [facility] [Outside] - 01/05/18 10:00 am (The above appointment is Katja Mackay Daily for outpatient psychiatric assessment and medication management services. Please arrive 30 minutes early to complete paperwork. Please bring your photo ID (bring proof of address if you do not have an ID) and medication list. The above appointment(s) reflects first availability. You may contact the office regularly to check for cancellations that may allow you to be seen sooner. ) [facility] - 12/22/17 1:45 pm (The above appointment is with Aixa Gonzalez for primary healthcare services. If you are unable to keep this appointment, 24 hour business notice of cancellation is expected. The above appointment(s) reflects first availability. You may contact the office regularly to check for cancellations that may allow you to be seen sooner.) Psychiatry Exam - Constitutional Vitals: Temp Pulse Resp BP Pulse Ox 97.9 F 79 14 131/86 98 12/10/17 09:00 12/10/17 09:00 12/10/17 09:00 12/10/17 09:00 12/01/17 09:22 General appearance: age & developmentally appropriate, well-groomed, well- nourished - Musculoskeletal Gait: unsteady Station: relaxed Strength & Tone: normal for patient - Psychiatric Patient Orientation: Yes Person, Yes Time, Yes Place Level of alertness: Alert Behavior: calm, cooperative, withdrawn Psychomotor activity: Slowed Eye Contact: Maintains Eye Contact Mood Description: Euthymic/stable, Depressed Affect description: congruent with mood, blunted Speech Volume: Normal Speech pattern: normal rate, normal rhythm, normal tone, fluent Language & Vocabulary: consistent with education Thought Process: Linear, Goal Oriented Thought Content: No Suicidal ideation, No Homicidal ideation, No Overt delusions Perceptual Disturbances: No Auditory hallucinations, No Visual hallucinations Attention Span Ability: Capable of Focused Attention Memory Description: Grossly Intact Patient Reliability: Reliable Historian Fund of knowledge: Yes abstraction ability, Yes aware of current events Intelligence Estimate: Average Judgment: Limited Insight: Partial
--- NOTE | 2017-12-10 18:45 | Internal Medicine Consult Note ---
<Cruz Fernandez - Last Filed: 12/10/17 23:45> Date of Encounter: 12/10/17 Time of Encounter: 16:30 - Assessment and plan (1) Abdominal pain Current Visit: Yes Status: Acute Assessment and plan: Acute abdominal pain that pt. reports began several days ago and is located in the epigastric area and is somewhat worse in LUQ w/palpation. Pt. reports sour stomach, N/V, and weakness/fatigue. Denies unusual bleeding or bloody stool, constipation. Reports diarrhea two weeks ago. CT of the abdomen/pelvis w/o contrast ordered. Will order CXR as well. PO Prilosec 20 mg BID ordered. Zofran 4 mg SL every 6 hours when necessary for nausea and vomiting. Monitor I&O. CT of the abdomen/pelvis w/o contrast shows 1-2 mm calculus in the proximal right ureter. Mild dilation of the right renal collecting system and proximal ureter. Additional nonobstructing small bilateral renal calculi are present. Normal appendix. Moderate to large colonic stool burden. Miralax ordered. CXR shows no acute cardiopulmonary abnormality. Right hilar soft tissue mass. CT of the chest is recommended for further evaluation. CT of the chest ordered. Pt. discussed w/Dr. Samuels who agrees w/plan of care. Pt. is high risk for further morbidity based on new onset of abdominal pain and tenderness, N/V, new right hilar soft tissue mass, and weakness/fatigue. Inpatient. Qualifiers: Abdominal location: epigastric Qualified Code(s): R10.13 - Epigastric pain (2) Nausea & vomiting Current Visit: Yes Status: Acute Assessment and plan: Acute nausea and vomiting. Pt. reports nausea w/several episodes of vomiting yesterday w/small amounts of non-bloody emesis. Zofran 4 mg SL every 6 hours when necessary ordered for nausea vomiting. Monitor I&O. Qualifiers: Vomiting type: cyclical vomiting Vomiting Intractability: non-intractable Qualified Code(s): G43.A0 - Cyclical vomiting, not intractable (3) Anemia Current Visit: Yes Status: Acute Assessment and plan: Hx of acute on chronic anemia. Pts. Hgb 12.7 and Hct 37.1 on 12/01/17. Monitor H /H in a.m. labs. Fecal hemoccult ordered. Pt. denies any unusual bleeding or bloody stool. Will monitor closely. Qualifiers: Anemia type: unspecified type Qualified Code(s): D64.9 - Anemia, unspecified - Time Spent With Patient Total time spent is greater than 50% in coordination of care (as documented) at patient's floor/unit and/or counseling patient: 25 - 35 minutes Internal Medicine - CN: HPI - Data of Consult Patient: new to practice Requesting Physician: Homero Mendoza MD - Consult Narrative History of present illness: Mr. Zamora is a 57 year old male w/PMH of COPD, HTN, kidney stones, and migraines presents for consultation due to new onset of abdominal pain, nausea, vomiting over the past several days. States abdominal pain is located in the epigastric area and worse in the LUQ. Patient reports weakness, headache, sour stomach, diarrhea but denies unusual bleeding or bloody stools, or constipation.Pt. reports his appetite is good and unchanged. Denies recent illness, fever, chills, changes in vision, unusual bleeding, cough, chest congestion, chest pain, palpitations, SOB, dyspnea, dizziness, lightheadedness, pre-syncope, or syncope. Past Med Surg Social Fam HX - Past Medical History Source: patient, old records reviewed Medical history: COPD, hypertension, kidney stones, migraine Psychiatric history: previous psychiatric hospitalization - Past Surgical History Surgical History: no surgical history - Social History Smoking Status: Current every day smoker Packs per day: 2-3 PPD Smokeless Tobacco Status: No Alcohol use: none, occasionally Drug use: none, marijuana Current living situation: Home Activity Level: Independent ambulation Recent Out of Country Travel Within the Last 8 Weeks: No Exposure or Possible Exposure to Illness During Travel: No - Family History Father Race: Family Member Ethnicity: Non- Living Status: Age at : 78 Cause of : CHF Hx Family Cardiac Disorders: Yes (HD, CHF) Hx Family Psychosocial Disorders: Yes (Obesity) Mother History Unknown: Yes Race: Family Member Ethnicity: Non- Living Status: Still Living Hx Family Neurologic Disorders: Yes (Dementia) Brother Race: Family Member Ethnicity: Non- Living Status: Age at : 59 Cause of : DE Hx Family Cardiac Disorders: Yes (DE) Hx Family Endocrine Disorder: Yes (DM) Sister Race: Family Member Ethnicity: Non- Living Status: Age at : 50 Cause of : Murdered - Constitutional Constitutional: as per HPI, fatigue, weakness - EENT Eyes: as per HPI Ears: as per HPI Nose, mouth and throat: as per HPI - Breasts Breasts: as per HPI - Cardiovascular Cardiovascular ROS IM: as per HPI - Respiratory Respiratory: as per HPI - Gastrointestinal Gastrointestinal: abdominal pain, diarrhea, heartburn, nausea, vomiting - Genitourinary Genitourinary ROS male: as per HPI - Musculoskeletal Musculoskeletal ROS IM: as per HPI - Integumentary Integumentary IM: as per HPI - Neurological Neurological ROS: as per HPI, weakness - Psychiatric Psychiatric: as per HPI, anxiety, depression, other (Schizophrenia) - Endocrine Endocrine IM: as per HPI - Hematologic/Lymphatic Hematologic/Lymphatic: as per HPI - Allergic/Immunologic Allergic/Immunologic: as per HPI Internal Medicine - CN: Meds Aspirin [Adult Low Dose Aspirin EC] 81 mg PO DAILY PRN 08/16/15 [History] Lisinopril-HCTZ 20-12.5 [Prinzide 20-12.5] 1 each PO DAILY #21 tablet 04/29/16 [ Rx] Albuterol Sulfate [Ventolin Hfa] 2 puff IH Q4-6H PRN 12/01/17 [History] Vitamin E 100 unit PO DAILY 12/01/17 [History] 3 Allergy/AdvReac Type Severity Reaction Status Date / Time acetaminophen [From Vicodin] Allergy Hallucinati Verified 07/18/15 12:34 ng hydrocodone [From Vicodin] Allergy Hallucinati Verified 07/18/15 12:34 ng Penicillins [PCN] Allergy childhood Verified 08/16/15 07:59 reaction "hot feeling inside" aspirin [ASA] AdvReac Abdominal Verified 04/29/16 00:18 Pain Internal Medicine - CN: Exam - Constitutional Vitals: Temp Pulse Resp BP Pulse Ox 97.9 F 79 14 131/86 98 12/10/17 09:00 12/10/17 09:00 12/10/17 09:00 12/10/17 09:00 12/01/17 09:22 General appearance IM: Present: cooperative, mild distress (Abdominal pain), A& O X 3, pleasant, answers questions appropriately - Head Head exam: Present: atraumatic, normocephalic - Eye Eye exam: Present: PERRL, conjuntiva pink, sclera anicteric Pupils: Present: PERRL - ENT ENT exam: Present: normal exam, normal external ear exam - Neck Neck exam general surgery: Present: full ROM, normal inspection, supple, trachea midline - Respiratory Respiratory exam: Present: CTAB - Cardiovascular Cardiovascular exam IM: Present: RRR, +S1, +S2 - GI/Abdominal GI/Abdominal exam IM: Present: guarding, normal bowel sounds, soft, tenderness, no peritoneal signs - Rectal Rectal exam: Present: deferred - Additional comments: exam deferred. - Extremities Exam Extremities exam IM: Present: warm, radial pulses palpable and symmetrical - Back Exam Back exam: Present: normal inspection - Neurological Exam Neurological exam: Present: alert, oriented X3, no focal deficits, strengths equal and symetr throughout - Psychiatric Psychiatric exam: Present: normal affect, normal mood - Skin Skin exam IM: Present: dry, intact Internal Medicine - CN: Reslt - Labs CBC & Chem 7: 12/01/17 10:11 12/01/17 10:11 Consult Discharge Plan - Plan Referrals: Inte [facility] [Outside] (The above appointment is with Rafael for outpatient mental health counseling and case management services.) Integrated [facility] [place] [facility] [Outside] - 01/05/18 10:00 am (The above appointment is Katja Mackay Daily for outpatient psychiatric assessment and medication management services. Please arrive 30 minutes early to complete paperwork. Please bring your photo ID (bring proof of address if you do not have an ID) and medication list. The above appointment(s) reflects first availability. You may contact the office regularly to check for cancellations that may allow you to be seen sooner. ) [facility] [Outside] - 12/22/17 1:45 pm (The above appointment is with Aixa Gonzalez for primary healthcare services. If you are unable to keep this appointment, 24 hour business notice of cancellation is expected. The above appointment(s) reflects first availability. You may contact the office regularly to check for cancellations that may allow you to be seen sooner.) <Sujit Samuels P - Last Filed: 12/10/17 23:52> Date of Encounter: 12/10/17 - Assessment and plan (1) Abdominal pain Current Visit: Yes Status: Acute Qualifiers: Abdominal location: epigastric Qualified Code(s): R10.13 - Epigastric pain (2) Nausea & vomiting Current Visit: Yes Status: Acute Qualifiers: Vomiting type: cyclical vomiting Vomiting Intractability: non-intractable Qualified Code(s): G43.A0 - Cyclical vomiting, not intractable (3) Anemia Current Visit: Yes Status: Acute Qualifiers: Anemia type: unspecified type Qualified Code(s): D64.9 - Anemia, unspecified - Time Spent With Patient Total time spent is greater than 50% in coordination of care (as documented) at patient's floor/unit and/or counseling patient: Internal Medicine - CN: HPI - Data of Consult Requesting Physician: Homero Mendoza MD - Consult Narrative History of present illness: Mr. Zamora is a 57 year old male Internal Medicine - CN: Exam - Constitutional Vitals: Temp Pulse Resp BP Pulse Ox 97.8 F 91 16 131/90 98 12/10/17 19:58 12/10/17 19:58 12/10/17 19:58 12/10/17 19:58 12/01/17 09:22 Internal Medicine - CN: Reslt - Labs CBC & Chem 7: 12/01/17 10:11 12/01/17 10:11 - Impressions Impressions Abdomen/Pelvis CT 12/10/17 17:24 IMPRESSION: There is a 1-2 mm calculus in the proximal right ureter. There mild dilation of the right renal collecting system and proximal ureter. Additional nonobstructing small bilateral renal calculi are present. Normal appendix. Moderate- large colonic stool burden. D/ / Keith Gramajo MD / Keith Gramajo MD Interpreting Provider: Keith Gramajo MD Chest X-Ray 12/10/17 19:10 IMPRESSION: 1. No acute cardiopulmonary abnormality. 2. New right hilar soft tissue mass. CT of the chest is recommended for further evaluation. D/ / Erik Machado / Erik Machado Interpreting Provider: Erik Machado - Attending Attestation I examined this patient and my medical decision-making was reviewed with the Resident Physician/CUSTOMER SERVICES SUPERVISOR. I agree with the documented findings, disposition and treatment plan as described except to the extent set forth below. Hospitalist he was consulted for nausea vomiting/abdominal pain. X-ray suggestive of a soft tissue hilar mass. We will get a CT chest to rule out malignancy. Nausea vomiting may be secondary to the pressure effect. Symptomatic treatment for now. Hospitalist team will follow the patient
[2017-12-10] MEDS: Mag Hydrox/Al Hydrox/Simeth 30 ML UDC PO PRN (20:46)
[2017-12-11 08:24] LABS: Albumin/Globulin Ratio 1.3 (1.1-2.2); Bilirubin,Total 0.4 mg/dL (0.3-1.0); Calcium 9.8 mg/dL (8.6-10.3); Globulin 3.2 g/dL (2.4-3.5); Potassium 4.6 mEq/L (3.5-5.1); Total Protein 7.2 g/dL (6.4-8.9)
[2017-12-11 08:27] LABS: Basophils % 0.5 %; Eosinophils # 0.2 K/mcL (0.0-0.6); Eosinophils % 2.7 %; Hematocrit 36.5 % (37.5-50.1); Hemoglobin 12.2 g/dL (12.9-16.9); Immature Granulocytes % 0.2 % (0-4); Lymphocytes # 1.7 K/mcL (0.6-4.6); Lymphocytes % 30.1 %; Mean Corpuscular HGB Conc 33.4 g/dL (31.6-35.5); Mean Corpuscular Volume 95.8 fL (83.0-100.0); Mean Platelet Volume 9.5 fL (9.4-12.4); Monocytes # 0.6 K/mcL (0.0-1.3); Monocytes % 10.2 %; Neutrophils # 3.2 K/mcL (1.6-8.9); Platelet Count 162 K/mcL (140-400); Red Blood Count 3.81 M/mcL (4.19-5.50); Red Cell Distribution Width 13.3 % (11.5-14.5); Segmented Neutrophils % 56.3 %
[2017-12-11] MEDS: Nicotine 21 MG PATCH.TD24 TD SCH (09:21)
[2017-12-11] MEDS: risperiDONE 1 MG TABLET PO SCH ×2 (09:21→22:10)
[2017-12-11] MEDS: Lisinopril-HCTZ 20-12.5mg TABLET PO SCH (09:21)
--- NOTE | 2017-12-11 14:50 | Internal Med Progress Note ---
Date of Encounter: 12/11/17 Time of Encounter: 14:43 - Assessment and plan (1) Abdominal pain Current Visit: Yes Status: Acute Assessment and plan: W/u so far reveals 1-2 mm claclulus in the proximal right ureter. There is also a 2-3 mm one on the left renal pole. This could possibly explain his pain. Will treat conservatively for now. Should pass on its own. Has h/o renal stones. known to urology service. needed nephrostomy in July 2015. Encourage PO hydration. Will also check lipase. Normal LFTs. Qualifiers: Abdominal location: epigastric Qualified Code(s): R10.13 - Epigastric pain (2) Lung mass Current Visit: Yes Status: Acute Assessment and plan: seen on CXR on the right hilar area. will check a CT chest. Worry is malignancy with a lesion also noted on the liver. Patient has significant smoking history and has lost about 15 Ibs last month. (3) Nausea & vomiting Current Visit: Yes Status: Acute Assessment and plan: Conservative management. Qualifiers: Vomiting type: cyclical vomiting Vomiting Intractability: non-intractable Qualified Code(s): G43.A0 - Cyclical vomiting, not intractable (4) Anemia Current Visit: Yes Status: Acute Assessment and plan: stable. monitor. Qualifiers: Anemia type: unspecified type Qualified Code(s): D64.9 - Anemia, unspecified - Time Spent With Patient Total time spent is greater than 50% in coordination of care (as documented) at patient's floor/unit and/or counseling patient: - Subjective Interval history: Patient was seen and examined. We are asked to see the patient for abd pain. Admitted to the psych unit initially for psychosis. - Constitutional Vitals: Temp Pulse Resp BP Pulse Ox 98.2 F 93 18 139/93 98 12/11/17 09:00 12/11/17 09:00 12/11/17 09:00 12/11/17 09:00 12/01/17 09:22 General appearance: Present: cooperative, mild distress (Abdominal pain), A&O X 3, pleasant, answers questions appropriately Exam: GEN: NAD CVS: RRR. S1, S2, No m/r/g RESP: CTAB ABD: Soft, left upper quad tenderness. ND, +BS EXT: No edema. 2+ DP, No rashes NEURO: Nonfocal Internal Medicine: Result - Labs CBC & Chem 7: 12/11/17 07:50 12/11/17 07:50 Labs: Short CBC 12/11/17 Range/Units 07:50 WBC 5.6 (4.3-11.1) K/mcL Hgb 12.2 L (12.9-16.9) g/dL Hct 36.5 L (37.5-50.1) % Plt Count 162 (140-400) K/mcL Neutrophils # 3.2 (1.6-8.9) K/mcL BMP 12/11/17 07:50 Sodium 137 Potassium 4.6 Chloride 95 L Carbon Dioxide 37 H BUN 27 H Creatinine 1.48 H Glucose 107 H Calcium 9.8 Liver Function 12/11/17 Range/Units 07:50 Total Bilirubin 0.4 (0.3-1.0) mg/dL AST 8 L (13-39) Units/L ALT 11 (7-52) Units/L Alkaline Phosphatase 55 (34-104) Units/L Albumin 4.0 (3.5-5.7) g/dL - Impressions Impressions Abdomen/Pelvis CT 12/10/17 17:24 IMPRESSION: There is a 1-2 mm calculus in the proximal right ureter. There mild dilation of the right renal collecting system and proximal ureter. Additional nonobstructing small bilateral renal calculi are present. Normal appendix. Moderate- large colonic stool burden. D/ / Keith Gramajo MD / Keith Gramajo MD Interpreting Provider: Keith Gramajo MD Chest X-Ray 12/10/17 19:10 IMPRESSION: 1. No acute cardiopulmonary abnormality. 2. New right hilar soft tissue mass. CT of the chest is recommended for further evaluation. D/ / Erik Machado / Erik Machado Interpreting Provider: Erik Machado - VTE Reasons for not Prescribing Prophylaxis: Treatment not Indicated - Low risk for VTE Consult Discharge Plan - Plan Additional Instructions: You are going into mental health respite at [facility] on discharge from the hospital. While there, clinic staff will open a case for you and you will be seen daily by the clinic counselors and egg caser. Referrals: [facility] [Outside] (Rafael will work with you and staff at [facility] to assist with transition from respite, and to arrange individual follow up for you after you leave respite. ) [facility] [place] [facility] [Outside] - 01/05/18 10:00 am (The above appointment is Katja Mackay Daily for outpatient psychiatric assessment and medication management services. Please arrive 30 minutes early to complete paperwork. Please bring your photo ID (bring proof of address if you do not have an ID) and medication list. The above appointment(s) reflects first availability. You may contact the office regularly to check for cancellations that may allow you to be seen sooner. ) [facility] [Outside] - 12/22/17 1:45 pm (The above appointment is with Aixa Gonzalez for primary healthcare services. If you are unable to keep this appointment, 24 hour business notice of cancellation is expected. The above appointment(s) reflects first availability. You may contact the office regularly to check for cancellations that may allow you to be seen sooner.)
--- NOTE | 2017-12-11 15:25 | Psychiatry Progress Note ---
Date of Encounter: 12/11/17 Time of Encounter: 14:00 Subjective Interval history: Patient seen for follow-up. Case discussed with nursing staff. Staff report he is withdrawn compliant with medication, no reports of any agitation or active hallucinations or delusions. Patient was seen by hospitalist continue to follow up on his chest x-ray was a CT scan to evaluate mass in the lungs. Other findings on CT scan were kidney stones and nephrology consult would be requested to follow-up. This may explain his complained of abdominal pain and nausea and vomiting. Patient is calm and cooperative, denies any somatic complaints and interacts appropriately, no evidence of delusion or hallucination. Social work is making plans for next week placements. Review of Systems Psychiatric: Reports: anxiety, abnormal sleep pattern, auditory hallucinations, confusion, hopelessness, mood swings, panic attacks. Denies: suicidal ideation , visual hallucinations Results - Vital Signs Vital Signs: Temp Pulse Resp BP Pulse Ox 98.2 F 93 18 139/93 98 12/11/17 09:00 12/11/17 09:00 12/11/17 09:00 12/11/17 09:00 12/01/17 09:22 - Labs Labs: Laboratory Results - last 24 hr 12/11/17 12/11/17 07:50 07:50 WBC 5.6 RBC 3.81 L Hgb 12.2 L Hct 36.5 L MCV 95.8 MCH 32.0 MCHC 33.4 RDW 13.3 Plt Count 162 MPV 9.5 Immature Gran % 0.2 Seg Neutrophils % 56.3 Lymphocytes % 30.1 Monocytes % 10.2 Eosinophils % 2.7 Basophils % 0.5 Neutrophils # 3.2 Lymphocytes # 1.7 Monocytes # 0.6 Eosinophils # 0.2 Basophils # 0.0 Sodium 137 Potassium 4.6 Chloride 95 L Carbon Dioxide 37 H BUN 27 H Creatinine 1.48 H Est GFR ( Amer) 60 Est GFR (Non-Af Amer) 49 L BUN/Creatinine Ratio 18 Glucose 107 H Calculated Osmolality 290 Calcium 9.8 Total Bilirubin 0.4 AST 8 L ALT 11 Alkaline Phosphatase 55 Serum Total Protein 7.2 Albumin 4.0 Globulin 3.2 Albumin/Globulin Ratio 1.3 Lipase 12 - Impressions ITS Impressions Abdomen/Pelvis CT 12/10/17 17:24 IMPRESSION: There is a 1-2 mm calculus in the proximal right ureter. There mild dilation of the right renal collecting system and proximal ureter. Additional nonobstructing small bilateral renal calculi are present. Normal appendix. Moderate- large colonic stool burden. D/ / Keith Gramajo MD / Keith Gramajo MD Interpreting Provider: Keith Gramajo MD Chest X-Ray 12/10/17 19:10 IMPRESSION: 1. No acute cardiopulmonary abnormality. 2. New right hilar soft tissue mass. CT of the chest is recommended for further evaluation. D/ / Erik Machado / Erik Machado Interpreting Provider: Erik Machado Assessment and Plan (1) Schizophrenia Current visit: No Status: Acute Plan: Continue hospitalization, Close observation, Suicide Precautions per unit protocol, Encourage participation in unit milieu, Group Therapy, Monitor sleep, Monitor appetite Risks, benefits, side effects, alternatives discussed w/pt: Yes Patient agreeable to treatment: Yes Qualifiers: Schizophrenia type: paranoid schizophrenia Qualified Code(s): F20.0 - Paranoid schizophrenia Consult Discharge Plan - Plan Additional Instructions: You are going into mental health respite at [facility] on discharge from the hospital. While there, clinic staff will open a case for you and you will be seen daily by the clinic counselors and manager rn case. Referrals: [facility] [Outside] (Rafael will work with you and staff at [facility] to assist with transition from respite, and to arrange individual follow up for you after you leave respite. ) [facility] [Outside] - 01/05/18 10:00 am (The above appointment is Katja Mackay Daily for outpatient psychiatric assessment and medication management services. Please arrive 30 minutes early to complete paperwork. Please bring your photo ID (bring proof of address if you do not have an ID) and medication list. The above appointment(s) reflects first availability. You may contact the office regularly to check for cancellations that may allow you to be seen sooner. ) [facility] [employer] [employer] [facility] [Outside] - 12/22/17 1:45 pm (The above appointment is with Aixa Gonzalez for primary healthcare services. If you are unable to keep this appointment, 24 hour business notice of cancellation is expected. The above appointment(s) reflects first availability. You may contact the office regularly to check for cancellations that may allow you to be seen sooner.) Psychiatry Exam - Constitutional Vitals: Temp Pulse Resp BP Pulse Ox 98.2 F 93 18 139/93 98 12/11/17 09:00 12/11/17 09:00 12/11/17 09:00 12/11/17 09:00 12/01/17 09:22 General appearance: age & developmentally appropriate, well-groomed, well- nourished - Musculoskeletal Gait: normal Station: relaxed Strength & Tone: normal for patient - Psychiatric Patient Orientation: Yes Person, Yes Time, Yes Place Level of alertness: Alert Behavior: calm, cooperative Psychomotor activity: Slowed Eye Contact: Minimal Contact Mood Description: Euthymic/stable Affect description: congruent with mood, blunted Speech Volume: Normal Speech pattern: normal rate, normal rhythm, normal tone, fluent, spontaneous Language & Vocabulary: consistent with education Thought Process: Linear, Goal Oriented Thought Content: No Suicidal ideation, No Homicidal ideation, No Overt delusions , Yes Preoccupation, Yes Paranoid delusion, Yes Faith delusion Perceptual Disturbances: No Auditory hallucinations, No Visual hallucinations Attention Span Ability: Capable of Focused Attention Memory Description: Grossly Intact Patient Reliability: Reliable Historian Fund of knowledge: Yes abstraction ability, Yes aware of current events Intelligence Estimate: Average Judgment: Limited Insight: Partial
--- NOTE | 2017-12-12 07:34 | Internal Med Progress Note ---
Date of Encounter: 12/12/17 Time of Encounter: 07:33 - Assessment and plan (1) Abdominal pain Current Visit: Yes Status: Acute Assessment and plan: W/u so far reveals 1-2 mm claclulus in the proximal right ureter. There is also a 2-3 mm one on the left renal pole. This could possibly explain his pain. Will treat conservatively for now. Should pass on its own. Has h/o renal stones. known to urology service. needed nephrostomy in July 2015. Encourage PO hydration. Normal Lipase. Normal LFTs. Qualifiers: Abdominal location: epigastric Qualified Code(s): R10.13 - Epigastric pain (2) Lung mass Current Visit: Yes Status: Acute Assessment and plan: seen on CXR on the right hilar area and confirmed on CT chest. Will ask pulm to see. Worry is malignancy with a lesion also noted on the liver. Patient has significant smoking history and has lost about 15 Ibs last month. (3) Nausea & vomiting Current Visit: Yes Status: Acute Assessment and plan: Conservative management. Qualifiers: Vomiting type: cyclical vomiting Vomiting Intractability: non-intractable Qualified Code(s): G43.A0 - Cyclical vomiting, not intractable (4) Anemia Current Visit: Yes Status: Acute Assessment and plan: stable. monitor. Qualifiers: Anemia type: unspecified type Qualified Code(s): D64.9 - Anemia, unspecified - Time Spent With Patient Total time spent is greater than 50% in coordination of care (as documented) at patient's floor/unit and/or counseling patient: - Subjective Interval history: Patient was seen and examined. No acute events. pain is better. We are asked to see the patient for abd pain. Admitted to the psych unit initially for psychosis. - Constitutional Vitals: Temp Pulse Resp BP Pulse Ox 97.0 F L 83 17 130/75 98 12/11/17 21:00 12/11/17 21:00 12/11/17 21:00 12/11/17 21:00 12/01/17 09:22 General appearance: Present: cooperative, mild distress (Abdominal pain), A&O X 3, pleasant, answers questions appropriately Exam: GEN: NAD CVS: RRR. S1, S2, No m/r/g RESP: CTAB ABD: Soft, left upper quad tenderness. ND, +BS EXT: No edema. 2+ DP, No rashes NEURO: Nonfocal Internal Medicine: Result - Labs CBC & Chem 7: 12/11/17 07:50 12/11/17 07:50 Labs: Short CBC 12/11/17 Range/Units 07:50 WBC 5.6 (4.3-11.1) K/mcL Hgb 12.2 L (12.9-16.9) g/dL Hct 36.5 L (37.5-50.1) % Plt Count 162 (140-400) K/mcL Neutrophils # 3.2 (1.6-8.9) K/mcL BMP 12/11/17 07:50 Sodium 137 Potassium 4.6 Chloride 95 L Carbon Dioxide 37 H BUN 27 H Creatinine 1.48 H Glucose 107 H Calcium 9.8 Liver Function 12/11/17 Range/Units 07:50 Total Bilirubin 0.4 (0.3-1.0) mg/dL AST 8 L (13-39) Units/L ALT 11 (7-52) Units/L Alkaline Phosphatase 55 (34-104) Units/L Albumin 4.0 (3.5-5.7) g/dL - Impressions Impressions Chest CT 12/11/17 19:00 IMPRESSION: Large mass in the superior segment of the right lower lobe abutting the posterior aspect of the right hilum suspicious for neoplasm with small satellite nodules or infiltrate. D/ / Sage Mathew MD / Sage Mathew MD Interpreting Provider: Sage Mathew MD - VTE Reasons for not Prescribing Prophylaxis: Treatment not Indicated - Low risk for VTE Consult Discharge Plan - Plan Additional Instructions: You are going into mental health respite at [facility] on discharge from the hospital. While there, clinic staff will open a case for you and you will be seen daily by the clinic counselors and hospice case manager. Referrals: [facility] [place] [facility] [Outside] (Rafael will work with you and staff at [facility] to assist with transition from respite, and to arrange individual follow up for you after you leave respite. ) [facility] [Outside] - 01/05/18 10:00 am (The above appointment is Katja Mackay Daily for outpatient psychiatric assessment and medication management services. Please arrive 30 minutes early to complete paperwork. Please bring your photo ID (bring proof of address if you do not have an ID) and medication list. The above appointment(s) reflects first availability. You may contact the office regularly to check for cancellations that may allow you to be seen sooner. ) [facility] [Outside] - 12/22/17 1:45 pm (The above appointment is with Aixa Gonzalez for primary healthcare services. If you are unable to keep this appointment, 24 hour business notice of cancellation is expected. The above appointment(s) reflects first availability. You may contact the office regularly to check for cancellations that may allow you to be seen sooner.)
[2017-12-12 08:40] LABS: Hematocrit 38.5 % (37.5-50.1); Hemoglobin 12.9 g/dL (12.9-16.9); Immature Granulocytes % 0.4 % (0-4); Immature Platelets 1.2 % (1.1-6.1); Lymphocytes % 30.1 %; Mean Corpuscular HGB Conc 33.5 g/dL (31.6-35.5); Mean Corpuscular Hemoglobin 32.2 pg (28.0-33.3); Mean Platelet Volume 9.4 fL (9.4-12.4); Monocytes % 10.3 %; Platelet Count 196 K/mcL (140-400); Red Blood Count 4.01 M/mcL (4.19-5.50); Red Cell Distribution Width 13.3 % (11.5-14.5); Segmented Neutrophils % 56.5 %
[2017-12-12 08:41] LABS: Basophils % 0.6 %; Eosinophils # 0.1 K/mcL (0.0-0.6); Eosinophils % 2.1 %; Lymphocytes # 1.6 K/mcL (0.6-4.6); Monocytes # 0.5 K/mcL (0.0-1.3)
[2017-12-12] MEDS: risperiDONE 1 MG TABLET PO SCH ×2 (09:24→22:11)
[2017-12-12] MEDS: Nicotine 21 MG PATCH.TD24 TD SCH (09:25)
[2017-12-12] MEDS: Lisinopril-HCTZ 20-12.5mg TABLET PO SCH (09:25)
[2017-12-12] MEDS: Aspirin Enteric Coated 81 MG Tablet PO PRN (09:31)
[2017-12-12 09:42] LABS: BUN/Creatinine Ratio 19 (6-26); Blood Urea Nitrogen 26 mg/dL (6-20); Carbon Dioxide 32 mEq/L (23-29); Chloride 96 mEq/L (98-107); Glucose 103 mg/dL (70-105); Magnesium 2.2 mg/dL (1.6-2.6); Osmolality,Calculated 289 (280-300); Potassium 4.5 mEq/L (3.5-5.1); Sodium 137 mEq/L (136-145); eGFR For African Americans > 60 (> 60); eGFR For Non-African Americans 54 (> 60)
--- NOTE | 2017-12-12 13:41 | Psychiatry Progress Note ---
Date of Encounter: 12/12/17 Time of Encounter: 13:38 Subjective Interval history: Patient seen for follow-up. Case discussed with nursing staff. Patient was seen by hospitalist and I reviewed the records. Positive finding for kidney stones and lung mass confirmed by CT. Pulmonary consult was ordered. Patient is well known to urology service also. He continued to complain on and off abdominal pain or discomfort and nausea but no vomiting. He is medication compliant and are normal behavioral disturbances. No evidence of hallucination or delusion or suicidal ideation. He is worried about his medical problems and unable to understand the details. Review of Systems Psychiatric: Reports: anxiety, abnormal sleep pattern, auditory hallucinations, confusion, hopelessness, mood swings, panic attacks. Denies: suicidal ideation , visual hallucinations Results - Vital Signs Vital Signs: Temp Pulse Resp BP Pulse Ox 96.8 F L 94 18 128/90 98 12/12/17 09:00 12/12/17 09:00 12/12/17 09:00 12/12/17 09:00 12/01/17 09:22 - Labs Labs: Laboratory Results - last 24 hr 12/11/17 12/12/17 12/12/17 07:50 08:19 08:19 WBC 5.3 RBC 4.01 L Hgb 12.9 Hct 38.5 MCV 96.0 MCH 32.2 MCHC 33.5 RDW 13.3 Plt Count 196 MPV 9.4 Immature Gran % 0.4 Seg Neutrophils % 56.5 Lymphocytes % 30.1 Monocytes % 10.3 Eosinophils % 2.1 Basophils % 0.6 Neutrophils # 3.0 Lymphocytes # 1.6 Monocytes # 0.5 Eosinophils # 0.1 Basophils # 0.0 Immature Plt Fraction 1.2 Sodium 137 137 Potassium 4.6 4.5 Chloride 95 L 96 L Carbon Dioxide 37 H 32 H BUN 27 H 26 H Creatinine 1.48 H 1.37 H Est GFR ( Amer) 60 > 60 Est GFR (Non-Af Amer) 49 L 54 L BUN/Creatinine Ratio 18 19 Glucose 107 H 103 Calculated Osmolality 290 289 Calcium 9.8 10.0 Magnesium 2.2 Total Bilirubin 0.4 AST 8 L ALT 11 Alkaline Phosphatase 55 Serum Total Protein 7.2 Albumin 4.0 Globulin 3.2 Albumin/Globulin Ratio 1.3 Lipase 12 - Impressions ITS Impressions Abdomen/Pelvis CT 12/10/17 17:24 IMPRESSION: There is a 1-2 mm calculus in the proximal right ureter. There mild dilation of the right renal collecting system and proximal ureter. Additional nonobstructing small bilateral renal calculi are present. Normal appendix. Moderate- large colonic stool burden. D/ / Keith Gramajo MD / Keith Gramajo MD Interpreting Provider: Keith Gramajo MD Chest X-Ray 12/10/17 19:10 IMPRESSION: 1. No acute cardiopulmonary abnormality. 2. New right hilar soft tissue mass. CT of the chest is recommended for further evaluation. D/ / Erik Machado / Erik Machado Interpreting Provider: Erik Machado Chest CT 12/11/17 19:00 IMPRESSION: Large mass in the superior segment of the right lower lobe abutting the posterior aspect of the right hilum suspicious for neoplasm with small satellite nodules or infiltrate. D/ / Sage Mathew MD / Sage Mathew MD Interpreting Provider: Sage Mathew MD Assessment and Plan (1) Schizophrenia Current visit: No Status: Acute Risks, benefits, side effects, alternatives discussed w/pt: Yes Patient agreeable to treatment: Yes Qualifiers: Schizophrenia type: paranoid schizophrenia Qualified Code(s): F20.0 - Paranoid schizophrenia Consult Discharge Plan - Plan Additional Instructions: You are going into mental health respite at [facility] on discharge from the hospital. While there, clinic staff will open a case for you and you will be seen daily by the clinic counselors and manager case. [facility]: [facility] (Rafael will work with you and staff at [facility] to assist with transition from respite, and to arrange individual follow up for you after you leave respite. ) Integrated [facility] MANUELA ANDRE[facility] [Outside] - 01/05/18 10:00 am (The above appointment is Katja Mackay Daily for outpatient psychiatric assessment and medication management services. Please arrive 30 minutes early to complete paperwork. Please bring your photo ID (bring proof of address if you do not have an ID) and medication list. The above appointment(s) reflects first availability. You may contact the office regularly to check for cancellations that may allow you to be seen sooner. ) [facility] [place] [Outside] - 12/22/17 1:45 pm (The above appointment is with Aixa Gonzalez for primary healthcare services. If you are unable to keep this appointment, 24 hour business notice of cancellation is expected. The above appointment(s) reflects first availability. You may contact the office regularly to check for cancellations that may allow you to be seen sooner.) Psychiatry Exam - Constitutional Vitals: Temp Pulse Resp BP Pulse Ox 96.8 F L 94 18 128/90 98 12/12/17 09:00 12/12/17 09:00 12/12/17 09:00 12/12/17 09:00 12/01/17 09:22 General appearance: age & developmentally appropriate, well-groomed, well- nourished - Musculoskeletal Gait: slow, unsteady Station: relaxed Strength & Tone: normal for patient - Psychiatric Patient Orientation: Yes Person, Yes Time, Yes Place Level of alertness: Alert Behavior: calm, cooperative Psychomotor activity: Slowed Eye Contact: Minimal Contact Mood Description: Euthymic/stable, Depressed Affect description: congruent with mood, blunted Speech Volume: Normal, Soft/Quiet Speech pattern: normal rate, normal rhythm, normal tone, fluent, spontaneous, limited, impoverished Language & Vocabulary: consistent with education Thought Process: Linear, Goal Oriented Thought Content: No Suicidal ideation, No Homicidal ideation, No Overt delusions Perceptual Disturbances: No Auditory hallucinations, No Visual hallucinations Attention Span Ability: Unable to Focus Memory Description: Grossly Intact Patient Reliability: Questionable Historian Fund of knowledge: Yes abstraction ability, Yes aware of current events Intelligence Estimate: Average Judgment: Limited Insight: Partial
[2017-12-12] MEDS: hydrOXYzine pamoate 25 MG CAPSULE PO PRN (16:57)
[2017-12-12] MEDS: Acetaminophen 325 MG TABLET PO PRN (16:57)
[2017-12-13] MEDS: Nicotine 21 MG PATCH.TD24 TD SCH (09:23)
[2017-12-13] MEDS: risperiDONE 1 MG TABLET PO SCH (09:23)
[2017-12-13] MEDS: Lisinopril-HCTZ 20-12.5mg TABLET PO SCH (09:23)
--- NOTE | 2017-12-13 09:32 | Internal Med Progress Note ---
Date of Encounter: 12/13/17 Time of Encounter: 09:30 - Assessment and plan (1) Abdominal pain Current Visit: Yes Status: Acute Assessment and plan: W/u so far reveals 1-2 mm claclulus in the proximal right ureter. There is also a 2-3 mm one on the left renal pole. This could possibly explain his pain. Will treat conservatively for now. Should pass on its own. Has h/o renal stones. known to urology service. needed nephrostomy in July 2015. Encourage PO hydration. Normal Lipase. Normal LFTs. Qualifiers: Abdominal location: epigastric Qualified Code(s): R10.13 - Epigastric pain (2) Lung mass Current Visit: Yes Status: Acute Assessment and plan: seen on CXR on the right hilar area and confirmed on CT chest. Spoke to Dr. Bledsoe who will see. Worry is malignancy with a lesion also noted on the liver. Patient has significant smoking history and has lost about 15 Ibs last month. (3) Nausea & vomiting Current Visit: Yes Status: Acute Assessment and plan: Conservative management. Qualifiers: Vomiting type: cyclical vomiting Vomiting Intractability: non-intractable Qualified Code(s): G43.A0 - Cyclical vomiting, not intractable (4) Anemia Current Visit: Yes Status: Acute Assessment and plan: stable. monitor. Qualifiers: Anemia type: unspecified type Qualified Code(s): D64.9 - Anemia, unspecified - Time Spent With Patient Total time spent is greater than 50% in coordination of care (as documented) at patient's floor/unit and/or counseling patient: - Subjective Interval history: Patient was seen and examined. Hard to get a history from him. Says abdominal pain is better then he tells me he is in severe pain but he is not acting like it. No acute events. We are asked to see the patient for abd pain. Admitted to the psych unit initially for psychosis. - Constitutional Vitals: Temp Pulse Resp BP Pulse Ox 97.5 F L 93 18 99/73 98 12/12/17 20:41 12/12/17 20:41 12/12/17 20:41 12/12/17 20:41 12/01/17 09:22 General appearance: Present: cooperative, mild distress (Abdominal pain), A&O X 3, pleasant, answers questions appropriately Exam: GEN: NAD. Does not stay on topic. tangential CVS: RRR. S1, S2, No m/r/g RESP: CTAB ABD: Soft, left upper quad tenderness. ND, +BS EXT: No edema. 2+ DP, No rashes NEURO: Nonfocal Internal Medicine: Result - Labs CBC & Chem 7: 12/12/17 08:19 12/12/17 08:19 Labs: BMP 12/12/17 08:19 Sodium 137 Potassium 4.5 Chloride 96 L Carbon Dioxide 32 H BUN 26 H Creatinine 1.37 H Glucose 103 Calcium 10.0 - VTE Reasons for not Prescribing Prophylaxis: Treatment not Indicated - Low risk for VTE Consult Discharge Plan - Plan Additional Instructions: You are going into mental health respite at [facility] on discharge from the hospital. While there, clinic staff will open a case for you and you will be seen daily by the clinic counselors and protective services case worker. Referrals: Inte [facility] [place] [facility] [Outside] (Rafael will work with you and staff at [facility] to assist with transition from respite, and to arrange individual follow up for you after you leave respite. ) [facility] [place] [Outside] - 01/05/18 10:00 am (The above appointment is Katja Mackay Daily for outpatient psychiatric assessment and medication management services. Please arrive 30 minutes early to complete paperwork. Please bring your photo ID (bring proof of address if you do not have an ID) and medication list. The above appointment(s) reflects first availability. You may contact the office regularly to check for cancellations that may allow you to be seen sooner. ) [facility] [facility] [Outside] - 12/22/17 1:45 pm (The above appointment is with Aixa Gonzalez for primary healthcare services. If you are unable to keep this appointment, 24 hour business notice of cancellation is expected. The above appointment(s) reflects first availability. You may contact the office regularly to check for cancellations that may allow you to be seen sooner.)
[2017-12-13 10:18] VITALS: BP 100/66
--- NOTE | 2017-12-13 10:21 | Pulmonology Consult Note ---
Date of Encounter: 12/13/17 Time of Encounter: 10:00 Assessment and Plan (1) Lung mass Current Visit: Yes Status: Acute I have reviewed CT chest result personally and explained to the patient in the presence of the nurse this is very concerning for lung cancer especially with his history of smoking and discussed with the primary team as well. The challenge with this patient as his psychosis and I do not feel confidently he understand the risk and benefit of the procedure and he will need bronchoscopy and biopsy. Once his family member available to discuss the procedure then we will be happy to arrange it for him. This also can be done as outpatient within short period of time. Thank you for the consultation. (2) COPD (chronic obstructive pulmonary disease) Current Visit: Yes Status: Chronic Patient on bronchodilator and advised him to quit smoking and will add Symbicort to his treatment. He will need outpatient workup with pulmonary function test. Qualifiers: COPD type: unspecified COPD Qualified Code(s): J44.9 - Chronic obstructive pulmonary disease, unspecified (3) Tobacco abuse counseling Current Visit: Yes Status: Acute (4) Psychosis Current Visit: Yes Status: Acute This is very concerning that he could have metastasis to his brain and discussed with the psych team and primary team and need for head CT. Qualifiers: Psychosis type: unspecified psychosis type Qualified Code(s): F29 - Unspecified psychosis not due to a substance or known physiological condition (5) Headache Current Visit: Yes Status: Acute Patient needs head CT Qualifiers: Headache type: unspecified Headache chronicity pattern: episodic headache Intractability: not intractable Qualified Code(s): R51 - Headache (6) Tobacco abuse Current Visit: Yes Status: Chronic Advised patient to quit smoking. History of Present Illness Consult date: 12/13/17 Requesting physician: Merline Connors Reason for consult: lung mass, abnormal CXR/CT Chief complaint: Psychosis History of present illness: This is a 57-year-old male poor historian and family is not available to obtain a reliable history. I have interviewed him in the presence of the nurse and he is only oriented to place and partially to time. Patient was admitted to the psych unit for psychosis. He has generalized pain. He had CT chest and was found to have lung mass and pulmonary was consulted. He has not had CT head yet. He is complaining of headache and he has significant smoking history as well as hemoptysis recently according to him and some cough and weight loss about 15 pounds last month according to the nurse. History overall is limited. Past Med Surg Social Fam HX - Past Medical History Medical history: COPD, hypertension, kidney stones, migraine Psychiatric history: previous psychiatric hospitalization - Past Surgical History Surgical History: no surgical history - Social History Smoking Status: Current every day smoker Packs per day: 2-3 PPD Smokeless Tobacco Status: No Alcohol use: none, occasionally Drug use: none, marijuana - Family History Brother Race: Family Member Ethnicity: Non- Living Status: Age at : 59 Cause of : MT Hx Family Cardiac Disorders: Yes (MT) Hx Family Endocrine Disorder: Yes (DM) Sister Race: Family Member Ethnicity: Non- Living Status: Age at : 50 Cause of : Murdered Father Race: Family Member Ethnicity: Non- Living Status: Age at : 78 Cause of : CHF Hx Family Cardiac Disorders: Yes (HD, CHF) Hx Family Psychosocial Disorders: Yes (Obesity) Mother History Unknown: Yes Race: Family Member Ethnicity: Non- Living Status: Still Living Hx Family Neurologic Disorders: Yes (Dementia) Medications and Allergies Aspirin [Adult Low Dose Aspirin EC] 81 mg PO DAILY PRN 08/16/15 [History] Lisinopril-HCTZ 20-12.5 [Prinzide 20-12.5] 1 each PO DAILY #21 tablet 04/29/16 [ Rx] Albuterol Sulfate [Ventolin Hfa] 2 puff IH Q4-6H PRN 12/01/17 [History] Vitamin E 100 unit PO DAILY 12/01/17 [History] 3 Allergy/AdvReac Type Severity Reaction Status Date / Time acetaminophen [From Vicodin] Allergy Hallucinati Verified 07/18/15 12:34 ng hydrocodone [From Vicodin] Allergy Hallucinati Verified 07/18/15 12:34 ng Penicillins [PCN] Allergy childhood Verified 08/16/15 07:59 reaction "hot feeling inside" aspirin [ASA] AdvReac Abdominal Verified 04/29/16 00:18 Pain ROS unobtainable: due to mental status All Systems: The remainder of the systems were reviewed and are negative Physical Examination Vital Signs: Vital Signs, Last 4 Hours Temp Pulse Resp BP 12/13/17 09:00 97.9 F 79 18 100/66 General appearance: no acute distress ENT: oropharynx moist Mallampati (class): 2 Neck: supple, no lymphadenopathy Effort: normal Inspection: normal Auscultation: left: diminished breath sounds, right: rhonchi Percussion: bilateral: not dull Cardiovascular: regular rate and rhythm Gastrointestinal: normoactive bowel sounds, tender Extremities: no cyanosis non-focal exam, other (Patient oriented to place and partially to time.) depressed Results - Laboratory Findings CBC and BMP: 12/12/17 08:19 12/12/17 08:19 Abnormal lab findings: Abnormal lab results RBC 4.01 M/mcL (4.19-5.50) L 12/12/17 08:19 Chloride 96 mEq/L (98-107) L 12/12/17 08:19 Carbon Dioxide 32 mEq/L (23-29) H 12/12/17 08:19 BUN 26 mg/dL (6-20) H 12/12/17 08:19 Creatinine 1.37 mg/dL (0.70-1.30) H 12/12/17 08:19 Est GFR (Non-Af Amer) 54 (> 60) L 12/12/17 08:19 AST 8 Units/L (13-39) L 12/11/17 07:50 Salicylates < 2.5 mg/dL (15.0-30.0) L 12/01/17 10:11 Acetaminophen < 10 mcg/mL (10-20) L 12/01/17 10:11 - Diagnostic Findings CT scan - chest: report reviewed, image reviewed - Clinical Findings Intake & Output: Intake & Output 12/12/17 12/13/17 12/13/17 23:59 07:59 15:59 Intake Total 480 / 480 Balance 480 / 480 Consult Discharge Plan - Plan Additional Instructions: You are going into mental health respite at [facility] on discharge from the hospital. While there, clinic staff will open a case for you and you will be seen daily by the clinic counselors and mental health case manager. Referrals: [facility] [Outside] Carey will work with you and staff at [facility] to assist with transition from respite, and to arrange individual follow up for you after you leave respite. ) [facility] [Outside] - 01/05/18 10:00 am (The above appointment is Katja Mackay Daily for outpatient psychiatric assessment and medication management services. Please arrive 30 minutes early to complete paperwork. Please bring your photo ID (bring proof of address if you do not have an ID) and medication list. The above appointment(s) reflects first availability. You may contact the office regularly to check for cancellations that may allow you to be seen sooner. ) [facility] [Outside] - 12/22/17 1:45 pm (The above appointment is with Aixa Gonzalez for primary healthcare services. If you are unable to keep this appointment, 24 hour business notice of cancellation is expected. The above appointment(s) reflects first availability. You may contact the office regularly to check for cancellations that may allow you to be seen sooner.)
--- NOTE | 2017-12-13 11:35 | Psychiatry Progress Note ---
Date of Encounter: 12/13/17 Time of Encounter: 10:00 Subjective Interval history: Patient was seen for follow-up. Case discussed with nursing staff. Patient is anxious and overwhelmed after he found out that he has a lung mass that was evaluated by pulmonary consult and require diagnostic to study including bronchoscopy and biopsy. He could not understand the procedure and the staff is trying to communicate with the family to facilitate getting these procedures done in the hospital to confirm a diagnosis and treatment based upon. Patient also was found to have kidney stones but this is a chronic condition and he has been treated in the past and well known to neurology service. Patient is cognitively unable to process or understand the medical issues and feeling overwhelmed and anxious. I assured him that the diagnosis and treatment is going to be for his benefits and he realizes that he has been a smoker for many years and has some understanding of this as a consequence. Review of Systems Psychiatric: Reports: anxiety, abnormal sleep pattern, auditory hallucinations, confusion, hopelessness, mood swings, panic attacks. Denies: suicidal ideation , visual hallucinations Results - Vital Signs Vital Signs: Temp Pulse Resp BP Pulse Ox 97.9 F 79 18 100/66 98 12/13/17 09:00 12/13/17 09:00 12/13/17 09:00 12/13/17 09:00 12/01/17 09:22 - Impressions ITS Impressions Abdomen/Pelvis CT 12/10/17 17:24 IMPRESSION: There is a 1-2 mm calculus in the proximal right ureter. There mild dilation of the right renal collecting system and proximal ureter. Additional nonobstructing small bilateral renal calculi are present. Normal appendix. Moderate- large colonic stool burden. D/ / Keith Gramajo MD / Keith Gramajo MD Interpreting Provider: Keith Gramajo MD Chest X-Ray 12/10/17 19:10 IMPRESSION: 1. No acute cardiopulmonary abnormality. 2. New right hilar soft tissue mass. CT of the chest is recommended for further evaluation. D/ / Erik Machado / Erik Machado Interpreting Provider: Erik Machado Chest CT 12/11/17 19:00 IMPRESSION: Large mass in the superior segment of the right lower lobe abutting the posterior aspect of the right hilum suspicious for neoplasm with small satellite nodules or infiltrate. D/ / Sgae Mathew MD / Sage Mathew MD Interpreting Provider: Sage Mathew MD Assessment and Plan (1) Schizophrenia Current visit: No Status: Acute Plan: Continue hospitalization, Close observation, Suicide Precautions per unit protocol, Encourage participation in unit milieu, Group Therapy, Monitor sleep, Monitor appetite Additional Plan: From psychiatric standpoint patient is stabilizing without any overt psychosis. However medical issues became priority at this time and I discussed treatment plan with Dr. Denton with possibility of transferring patient to medical service for further treatment. Risks, benefits, side effects, alternatives discussed w/pt: Yes Patient agreeable to treatment: Yes Qualifiers: Schizophrenia type: paranoid schizophrenia Qualified Code(s): F20.0 - Paranoid schizophrenia Consult Discharge Plan - Plan Additional Instructions: You are going into mental health respite at [facility] on discharge from the hospital. While there, clinic staff will open a case for you and you will be seen daily by the clinic counselors and case hardener. Referrals: [facility] [Outside] (Rafael will work with you and staff at [facility] to assist with transition from respite, and to arrange individual follow up for you after you leave respite. ) [facility] [Outside] - 01/05/18 10:00 am (The above appointment is Katja Mackay Daily for outpatient psychiatric assessment and medication management services. Please arrive 30 minutes early to complete paperwork. Please bring your photo ID (bring proof of address if you do not have an ID) and medication list. The above appointment(s) reflects first availability. You may contact the office regularly to check for cancellations that may allow you to be seen sooner. ) [facility] [Outside] - 12/22/17 1:45 pm (The above appointment is with Aixa Gonzalez for primary healthcare services. If you are unable to keep this appointment, 24 hour business notice of cancellation is expected. The above appointment(s) reflects first availability. You may contact the office regularly to check for cancellations that may allow you to be seen sooner.) Psychiatry Exam - Constitutional Vitals: Temp Pulse Resp BP Pulse Ox 97.9 F 79 18 100/66 98 12/13/17 09:00 12/13/17 09:00 12/13/17 09:00 12/13/17 09:00 12/01/17 09:22 General appearance: age & developmentally appropriate, well-groomed, well- nourished - Musculoskeletal Gait: normal, unsteady Station: relaxed Strength & Tone: normal for patient - Psychiatric Patient Orientation: Yes Person, Yes Time, Yes Place Level of alertness: Alert Behavior: calm, cooperative, anxious Psychomotor activity: Slowed Eye Contact: Minimal Contact Mood Description: Euthymic/stable, Anxious Affect description: congruent with mood, anxious Speech Volume: Normal Speech pattern: normal rate, normal rhythm, normal tone, fluent, spontaneous, limited, repetetive Language & Vocabulary: consistent with education Thought Process: Linear, Goal Oriented Thought Content: No Suicidal ideation, No Homicidal ideation, No Overt delusions Perceptual Disturbances: No Auditory hallucinations, No Visual hallucinations Attention Span Ability: Unable to Focus Memory Description: Grossly Intact Patient Reliability: Questionable Historian Fund of knowledge: Yes abstraction ability, Yes aware of current events Intelligence Estimate: Average Judgment: Limited Insight: Partial
[2017-12-13] MEDS ORDERED: Budesonide/Formoterol 160/4.5 MDI IH SCH (22:00)
--- NOTE | 2017-12-20 09:54 | Discharge Summary ---
Date of Encounter: 12/20/17 Time of Encounter: 16:00 Diagnosis - Discharge Diagnosis (1) Schizophrenia Status: Acute Qualifiers: Schizophrenia type: disorganized schizophrenia Qualified Code(s): F20.1 - Disorganized schizophrenia Medications - Discharge Medications Aspirin [Adult Low Dose Aspirin EC] 81 mg PO DAILY PRN 08/16/15 [History] Lisinopril-HCTZ 20-12.5 [Prinzide 20-12.5] 1 each PO DAILY #21 tablet 04/29/16 [ Rx] Albuterol Sulfate [Ventolin Hfa] 2 puff IH Q4-6H PRN 12/01/17 [History] Vitamin E 100 unit PO DAILY 12/01/17 [History] 3 Allergy/AdvReac Type Severity Reaction Status Date / Time acetaminophen [From Vicodin] Allergy Hallucinati Verified 07/18/15 12:34 ng hydrocodone [From Vicodin] Allergy Hallucinati Verified 07/18/15 12:34 ng Penicillins [PCN] Allergy childhood Verified 08/16/15 07:59 reaction "hot feeling inside" aspirin [ASA] AdvReac Abdominal Verified 04/29/16 00:18 Pain Results Procedures and tests throughout hospitalization: Completed Lab Orders Category Date Time Status BMP [Basic Metabolic Panel] AM 0400 Lab 12/12/17 08:19 Completed CBC [Complete Blood Count] [HEME] AM 0400 Lab 12/11/17 07:50 Completed CMP [Comprehensive Metabolic Panel] AM 0400 Lab 12/11/17 07:50 Completed Complete Blood Count [HEME] AM 0400 Lab 12/12/17 08:19 Completed Lipase Routine Lab 12/11/17 07:50 Completed Magnesium AM 0400 Lab 12/12/17 08:19 Completed Completed Imaging Orders Category Date Time Status CT abd pelvis wo no iv no oral [CT] Routine Cat Scan 12/10/17 17:[address] chest wo con [CT] Routine Cat Scan 12/11/17 19:[address] head/brain wo con [CT] Routine Cat Scan 12/13/17 13:18 Completed XR chest 1V [XR] Stat Exams 12/10/17 19:10 Completed Provider Date of admission: 12/01/17 13:38 Primary care physician: PCP NONE Consults: 12/09/17 15:19 Consult to Hospitalist [CONS] Routine Consulting Provider: Hospitalist Apogee Reason for Consult: Abdominal pain, nausea and vomiting Call Completed: Yes 12/11/17 23:36 Consult to Pulmonology [CONS] Routine Consulting Provider: [facility] Sherice Reason for Consult: lung mass Call Completed: No Discharging clinician: Homero Mendoza Psychiatry Exam - Constitutional Vitals: Temp Pulse Resp BP Pulse Ox 97.9 F 79 18 100/66 98 12/13/17 09:00 12/13/17 09:00 12/13/17 09:00 12/13/17 09:00 12/01/17 09:22 General appearance: age & developmentally appropriate, well-groomed, well- nourished - Musculoskeletal Gait: normal Station: relaxed Strength & Tone: normal for patient - Psychiatric Patient Orientation: Yes Person, Yes Time, Yes Place Level of alertness: Alert Behavior: calm, cooperative Psychomotor activity: Normal Eye Contact: Maintains Eye Contact Mood Description: Euthymic/stable Affect description: congruent with mood, full range Speech Volume: Normal Speech pattern: normal rate, normal rhythm, normal tone, fluent, spontaneous Language & Vocabulary: consistent with education Thought Process: Linear, Goal Oriented Thought Content: No Suicidal ideation, No Homicidal ideation, No Overt delusions Perceptual Disturbances: No Auditory hallucinations, No Visual hallucinations Attention Span Ability: Capable of Focused Attention Memory Description: Grossly Intact Patient Reliability: Reliable Historian Fund of knowledge: Yes abstraction ability, Yes aware of current events Intelligence Estimate: Average Judgment: Limited Insight: Partial Hospital Course Hospital course: Mr. Zamora is a 57 year old male admitted for psychosis.see H&P. pt. was stabilized on medication risperdal and cymbalta.med consult was ordered to evaluate abd. pain,nausea and vomiting.pt found to have mass in his lung with possible mets in liver and brain. pulmonary consult recommended transfer pt to medical service for further eval. and treatment.pt was discharged in stable condition from psychiatric standpoint.he was alert,oriented,non suicidal or psychotic. - Time Spent with Patient Total time spent providing and/or coordinating discharge services: Less than 30 minutes Assessment and Plan - Patient/Caregiver Discharge Instructions Activity: resume usual activities as tolerated Diet: regular diet Additional Instructions: You are going into mental health respite at [facility] on discharge from the hospital. While there, clinic staff will open a case for you and you will be seen daily by the clinic counselors and case sealer. - Follow up Plan Follow up with: [facility] [place] [facility] [Outside] (Rafael [place] work [place] you and [place] [facility] assist with [place] from [place], and to arrange individual follow up for you after you leave respite. ) [facility] [place] [Outside] - 01/05/18 10:00 am (The above appointment is [facility] for outpatient psychiatric assessment and medication management services. Please arrive 30 minutes early to complete paperwork. Please bring your photo ID (bring proof of address if you do not have an ID) and medication list. The above appointment(s) reflects first availability. You may contact the office regularly to check for cancellations that may allow you to be seen sooner. ) [facility] Assistant Lou [Outside] - 12/22/17 1:45 pm (The above appointment is with Aixa Gonzalez for primary healthcare services. If you are unable to keep this appointment, 24 hour business notice of cancellation is expected. The above appointment(s) reflects first availability. You may contact the office regularly to check for cancellations that may allow you to be seen sooner.) Disposition: Admitted As Inpatient Quality - Multiple Antipsychotics Patient discharged on 2 or more antipsychotic medications: No Procedures - Procedures Procedures: Medication Management, Crisis Stabilization, Supportive Therapy, Group Therapy, Psychoeducational Therapy
== END 2017-12-13 17:25 | disposition home or self-care (01) | DRG 750 ==
LOC: EMEROO 09:08 → 1ANU 13:38 → SUATTDRO 13:38 → 1ANU 15:16
PROVIDERS: ADMIT Student in an Organized Health Care Education/Training Program; ATTEND Psychiatry & Neurology Psychiatry

== ENCOUNTER 2017-12-13 16:08 | Inpatient (IN) ==
[2017-12-13] MEDS ORDERED: Naloxone 0.4 MG/ML INJ IVP PRN (16:15)
--- NOTE | 2017-12-13 16:27 | Internal Med History&Physical ---
Date of Encounter: 12/13/17 Time of Encounter: 16:24 Internal Medicine - H&P: HPI Chief complaint: Metastatic cancer Admitted From: Intrahospital Transfer Plans for Post Hospital Care: Home History of present illness: Mr. Zamora is a 57 year old male who has a history of hypertension and tobacco abuse who was admitted under the psychiatrist service for psychosis/visual hallucinations. We were initially asked to see the patient in consultation for abdominal pain and workup revealed at the time a couple small kidney stones as well as a hepatic lesion. At that time also a chest x-ray was done which was suspicious for a lung mass. This was followed by a CT chest which confirmed a large mass in the superior segment of the right lower lobe abutting the posterior aspect of the right hilum suspicious for neoplasm with small satellite nodules or infiltrate. The mass was measured at 5.5 x 5.5 x 5.0 cm. Because of these findings I consulted with pulmonary who evaluated the patient and thought the mass can be biopsied through bronchoscopy. Patient was noted to be confused at times and a CT head was done which showed findings concerning for metastatic lesion to the right occipital lobe with vasogenic edema and mass effect with no midline shift. I discussed these findings with our neurologist Dr. Douglass and asked if he felt comfortable with the patient being transferred to our medical floors versus a transfer to an outside facility and he recommended that the patient should be okay in our facility and recommended starting patient on Decadron. The patient is being transferred to the hospitalist service on a medical floor for further workup of his early diagnosed metastatic cancer. He denies any fever, chills, nausea, vomiting, chest pain, shortness of breath, constipation, diarrhea, urinary symptoms, or neurological symptoms. Past Med Surg Social Fam HX - Past Medical History Medical history: COPD, hypertension, kidney stones, migraine Psychiatric history: previous psychiatric hospitalization - Past Surgical History Surgical History: no surgical history - Social History Smoking Status: Current every day smoker Smokeless Tobacco Status: No Alcohol use: none, occasionally Drug use: none, marijuana - Family History Brother Family Member Ethnicity: Non- Living Status: Hx Family Cardiac Disorders: Yes (DE) Hx Family Endocrine Disorder: Yes (DM) Sister Family Member Ethnicity: Non- Living Status: Father Family Member Ethnicity: Non- Living Status: Hx Family Cardiac Disorders: Yes (HD, CHF) Mother Family Member Ethnicity: Non- Living Status: Still Living Hx Family Neurologic Disorders: Yes (Dementia) Internal Medicine - H&P: Meds Aspirin [Adult Low Dose Aspirin EC] 81 mg PO DAILY PRN 08/16/15 [History] Lisinopril-HCTZ 20-12.5 [Prinzide 20-12.5] 1 each PO DAILY #21 tablet 04/29/16 [ Rx] Albuterol Sulfate [Ventolin Hfa] 2 puff IH Q4-6H PRN 12/01/17 [History] Vitamin E 100 unit PO DAILY 12/01/17 [History] 3 Allergy/AdvReac Type Severity Reaction Status Date / Time acetaminophen [From Vicodin] Allergy Hallucinati Verified 07/18/15 12:34 ng hydrocodone [From Vicodin] Allergy Hallucinati Verified 07/18/15 12:34 ng Penicillins [PCN] Allergy childhood Verified 08/16/15 07:59 reaction "hot feeling inside" aspirin [ASA] AdvReac Abdominal Verified 04/29/16 00:18 Pain All Systems PM: A 10-system review of systems was performed and is negative for pertinent findings except as documented above in the HPI. Review of systems: All systems reviewed are negative except for as mentioned above - Constitutional Exam: GEN: NAD HEENT: AT, NC, No cyanosis, oral mucosa is moist, No JVD Lymphatics: No lymphadenoapthy Eyes: Extrocular muscles intact, anicteric CVS:RRR. S1, S2, No m/r/g RESP: CTAB ABD: Soft, NT, ND, +BS EXT: No edema, No rashes, 2+ DP NEURO: Nonfocal, CN II-XII intact, No focal motor or sensory deficits Psych: Cooperative, Not anxious or depressed - Assessment and plan (1) Acute encephalopathy Current Visit: No Status: Acute Assessment and plan: This is likely explained by his brain mets more so than his underlying psych issues although I do believe there is some psych component to his behavior in some situations such when he starts talking about mistrust issues and others trying to hurt him. He is alert and oriented on my exam today. He understands the situation of the suspected malignancy. He was not showing signs of confusion while I was telling him the findings. (2) Metastatic disease Current Visit: No Status: Acute Assessment and plan: Patient has metastatic disease with the primary likely being the lung. CT abdomen and pelvis showed a spot on the liver. CT head showed brain lesion with vasogenic edema. The patient will need a biopsy of his lung mass which I anticipate pulmonary we will be planning to do. After that we will get oncology involved. We will get an MRI of brain. (3) Vasogenic brain edema Current Visit: No Status: Acute Assessment and plan: Spoke to Dr. Douglass from neurology. We will start the patient on Decadron 4 mg twice a day. We will get an MRI of brain. Patient is hemodynamically stable. CT head showed a heterogeneous right occipital lobe mass measuring 2.5 x 4.5 x 4.2 cm most suspicious for intracranial metastatic disease. There was right frontotemporoparietal lobe vasogenic edema. Mass effect and partial effacement of the right lateral ventricle. No significant midline shift. (4) Hypertension Current Visit: No Status: Acute Assessment and plan: Continue previous antihypertensives. Qualifiers: Hypertension type: essential hypertension Qualified Code(s): I10 - Essential (primary) hypertension (5) Renal calculus Current Visit: No Status: Acute Assessment and plan: Patient has had a history of renal stones at some point required nephrostomy tubes. He is known to the urology service. We will continue to treat conservatively for now as those are small calculi. There is 1-2 mm claclulus in the proximal right ureter. There is also a 2-3 mm one on the left renal pole. Those should pass on their own. We will start IV fluids. Antiemetics. Pain control. (6) COPD (chronic obstructive pulmonary disease) Current Visit: No Status: Chronic Assessment and plan: Resume inhalers. Patient is not in exacerbation. Not hypoxic. Qualifiers: COPD type: unspecified COPD Qualified Code(s): J44.9 - Chronic obstructive pulmonary disease, unspecified (7) Tobacco abuse Current Visit: No Status: Chronic Assessment and plan: Nicotine patch (8) Psychosis Current Visit: No Status: Acute Assessment and plan: We will ask psych to see the patient along while he is on the hospital side. Qualifiers: Psychosis type: unspecified psychosis type Qualified Code(s): F29 - Unspecified psychosis not due to a substance or known physiological condition (9) Schizophrenia Current Visit: No Status: Acute Assessment and plan: As above. Qualifiers: Schizophrenia type: unspecified Qualified Code(s): F20.9 - Schizophrenia, unspecified (10) DVT prophylaxis Current Visit: No Status: Acute Assessment and plan: SCDs - Time Spent With Patient Total time spent is greater than 50% in coordination of care (as documented) at patient's floor/unit and/or counseling patient:
[2017-12-13] MEDS: Nicotine 21 MG PATCH.TD24 TD SCH ×3 (17:54→18:05)
[2017-12-13] MEDS: 0.9 % Sodium Chloride 1,000 ML IVC SCH (17:55)
[2017-12-13] MEDS: Dexamethasone 4 MG/ML VIAL IVP SCH (17:55)
[2017-12-13] MEDS: risperiDONE 1 MG TABLET PO SCH (20:19)
[2017-12-13] MEDS: traZODone 50 MG TABLET PO SCH (20:19)
[2017-12-13] MEDS: Budesonide/Formoterol 160/4.5 MDI IH SCH (20:26)
[2017-12-14] MEDS: 0.9 % Sodium Chloride 1,000 ML IVC SCH ×2 (03:58→12:56)
[2017-12-14 05:17] LABS: Hematocrit 31.7 % (37.5-50.1); Immature Granulocytes % 0.5 % (0-4); Lymphocytes # 0.7 K/mcL (0.6-4.6); Mean Corpuscular HGB Conc 33.1 g/dL (31.6-35.5); Mean Corpuscular Hemoglobin 31.4 pg (28.0-33.3); Mean Corpuscular Volume 94.9 fL (83.0-100.0); Mean Platelet Volume 9.6 fL (9.4-12.4); Monocytes # 0.2 K/mcL (0.0-1.3); Monocytes % 5.3 %; Neutrophils # 3.4 K/mcL (1.6-8.9); Platelet Count 142 K/mcL (140-400); Red Blood Count 3.34 M/mcL (4.19-5.50); Red Cell Distribution Width 13.5 % (11.5-14.5); Segmented Neutrophils % 78.2 %
[2017-12-14 05:18] LABS: Hemoglobin 10.5 g/dL (12.9-16.9)
[2017-12-14 05:35] LABS: Calcium 9.3 mg/dL (8.6-10.3); Potassium 4.8 mEq/L (3.5-5.1)
[2017-12-14] MEDS: Dexamethasone 4 MG/ML VIAL IVP SCH ×3 (06:30→20:28)
--- NOTE | 2017-12-14 06:40 | Pulmonology Progress Note ---
Date of Encounter: 12/14/17 Time of Encounter: 06:40 Assessment and Plan (1) Lung mass Current Visit: No Status: Acute 57-year-old gentleman past medical history of tobacco abuse who was found to have CT imaging concerning for primary lung malignancy head CT notable for likely metastatic disease. Location a primary lesion would be amenable to bronchoscopy with endobronchial ultrasound for fine-needle aspiration for tissue diagnosis Given metastatic lesion in brain would need neurology clearance prior to planned procedure which would have to be done with general anesthesia Patient not deemed competent to give consent for medical decision-making giving underlying mental health issues I will discuss with his primary decision maker which appears to be his mother to get consent for this procedure No planned procedure from pulmonary standpoint today so no need for nothing by mouth from my standpoint unless his nothing by mouth for another reason Keep nothing by mouth at midnight tonight however for possible bronchoscopy tomorrow and if not tomorrow within the next 48 hours after evaluation by neurology (2) Schizophrenia Current Visit: No Status: Acute Continue psychiatric evaluation Qualifiers: Schizophrenia type: unspecified Qualified Code(s): F20.9 - Schizophrenia, unspecified (3) Tobacco abuse counseling Current Visit: No Status: Acute Patient has been trying to quit and I encouraged him to do so nicotine replacement as needed while inpatient Subjective Principal diagnosis: Lung mass Interval history: Mr. Zamora was transferred from the psychiatry service to the general medical floor yesterday head CT was performed which was suspicious for metastatic lesion in the occipital lobe without mass effect but there was some surrounding vasogenic edema He is resting comfortably in bed he says that he has been told that he has "blood clots in his lung and in his brain" but is unable to tell me much more than that Objective PUL Vital signs: Last Vital Signs Temp 98.1 F 12/14/17 04:53 Pulse 90 12/14/17 04:53 Resp 17 12/14/17 04:53 BP 112/68 12/14/17 04:53 Pulse Ox 94 12/14/17 04:53 General appearance: no acute distress Eyes: nonicteric ENT: oropharynx moist Effort: normal Auscultation: bilateral: clear Cardiovascular: regular rate and rhythm Extremities: no edema normal mental status, non-focal exam mood appropriate Results - Laboratory Findings CBC and BMP: 12/14/17 04:23 12/14/17 04:23 Abnormal lab findings: Abnormal lab results RBC 3.34 M/mcL (4.19-5.50) L 12/14/17 04:23 Hgb 10.5 g/dL (12.9-16.9) L D 12/14/17 04:23 Hct 31.7 % (37.5-50.1) L 12/14/17 04:23 Sodium 134 mEq/L (136-145) L 12/14/17 04:23 BUN 44 mg/dL (6-20) H 12/14/17 04:23 Creatinine 1.73 mg/dL (0.70-1.30) H 12/14/17 04:23 Est GFR ( Amer) 50 (> 60) L 12/14/17 04:23 Est GFR (Non-Af Amer) 41 (> 60) L 12/14/17 04:23 Glucose 152 mg/dL (70-105) H 12/14/17 04:23 - Clinical Findings Intake & Output: Intake & Output 12/13/17 12/13/17 12/14/17 15:59 23:59 07:59 Intake Total 240 / 240 1000 / 1000 Output Total 0 / 0 Balance 240 / 240 1000 / 1000 Weight 65.771 kg Consult Discharge Plan - Plan Additional Instructions: Please also follow up with appointments set up by [address] Department[address] Provided at discharge Referrals: Aixa Gonzalez CNP [Advanced Practice Nurse] - 12/22/17 1:45 pm
[2017-12-14] MEDS: Nicotine 21 MG PATCH.TD24 TD SCH (07:38)
[2017-12-14] MEDS: risperiDONE 1 MG TABLET PO SCH ×2 (07:38→20:28)
[2017-12-14] MEDS: Acetaminophen 325 MG TABLET PO PRN ×2 (07:39→20:36)
[2017-12-14] MEDS: Budesonide/Formoterol 160/4.5 MDI IH SCH ×2 (07:44→19:50)
--- NOTE | 2017-12-14 09:52 | Neurology - Consult Note ---
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 shows right occipital lobe mass measuring 2.5 x 4.5 x 4.2 cm with right frontotemporoparietal lobe vasogenic edema no significant midline shift. Neuro exam non-focal and non-lateralizing Previous CT Head in 2016 was negative for any acute changes or evidence of mass. Plan: Continue Decadron 4 mg IV every 8 hours. Oncology and pulmonology on board. Based on MRI and extent of edema we will start patient on seizure prophylaxis. (2) Psychosis Current Visit: Yes Status: Acute as per psych Qualifiers: Psychosis type: schizophrenia Schizophrenia type: unspecified Qualified Code(s): F20.9 - Schizophrenia, unspecified (3) Vasogenic brain edema Current Visit: Yes Status: Acute continue decadron. History of Present Illness Chief complaint: abdominal pain HPI: Mr. Zamora is a 57 year old male initially presented to the emergency room for psychosis/visual hallucinations and was sent to psychiatric unit for treatment and evaluation. Patient then developed abdominal pain and was worked up by internal medicine team with a CT scan abdomen/pelvis that showed kidney stones and hepatic lesion. Patient's chest x-ray showed suspicion for lung mass which was confirmed by CT scan of the chest. Patient then underwent CT scan of the head which showed findings of right occipital lobe metastatic lesion and vasogenic edema. Thus neurology was consulted. This morning patient is alert and oriented to self but not place, time, situation. He denies headache, blurry vision, difficulty in hearing, difficulty swallowing, slurred speech, numbness, tingling, difficulty walking. Past Med Surg Social Fam HX - Past Medical History Medical history: COPD, hypertension, kidney stones, migraine Psychiatric history: previous psychiatric hospitalization - Past Surgical History Surgical History: no surgical history - Social History Smoking Status: Current every day smoker Smokeless Tobacco Status: No Alcohol use: none, occasionally Drug use: none, marijuana - Family History Brother Family Member Ethnicity: Non- Living Status: Hx Family Cardiac Disorders: Yes (MS) Hx Family Endocrine Disorder: Yes (DM) Sister Family Member Ethnicity: Non- Living Status: Father Family Member Ethnicity: Non- Living Status: Hx Family Cardiac Disorders: Yes (HD, CHF) Mother Family Member Ethnicity: Non- Living Status: Still Living Hx Family Neurologic Disorders: Yes (Dementia) Medications and Allergies Aspirin [Adult Low Dose Aspirin EC] 81 mg PO DAILY PRN 08/16/15 [History] Lisinopril-HCTZ 20-12.5 [Prinzide 20-12.5] 1 each PO DAILY #21 tablet 04/29/16 [ Rx] Albuterol Sulfate [Ventolin Hfa] 2 puff IH Q4-6H PRN 12/01/17 [History] Vitamin E 100 unit PO DAILY 12/01/17 [History] 3 Allergy/AdvReac Type Severity Reaction Status Date / Time acetaminophen [From Vicodin] Allergy Hallucinati Verified 07/18/15 12:34 ng hydrocodone [From Vicodin] Allergy Hallucinati Verified 07/18/15 12:34 ng Penicillins [PCN] Allergy childhood Verified 08/16/15 07:59 reaction "hot feeling inside" aspirin [ASA] AdvReac Abdominal Verified 04/29/16 00:18 Pain All Systems: The remainder of the systems were reviewed and are negative Review of Systems: Constitutional: Denies fever, chills HEENT: Denies headache, vision changes, neck pain, sore throat, rhinorrhea Heart: Denies chest pain palpitations Lungs: Denies shortness of breath cough Abdomen: Reports abdominal pain. Denies nausea, vomiting, diarrhea Back: Denies back pain Kidney: Denies dysuria, hematuria Skin: warm and dry Extremities: Denies swelling, pain Neuro: As per history of present illness Physical Examination - Vital Signs Vital Signs: Initial Vital Signs Temp Pulse Resp BP Pulse Ox 98.0 F 94 18 86/55 94 12/13/17 17:51 12/13/17 17:51 12/13/17 17:51 12/13/17 17:51 12/13/17 17:51 - Exam Exam: General: without distress HEENT: Head atraumatic, normocephalic, EOMI, PERRL, neck nontender to palpation , absent lymphadenopathy, Moist Mucous Membranes, Heart: Regular rate and rhythm with no murmur Lungs: Mildly diminished in right lower lobe otherwise clear bilaterally Abdomen: Soft, mild tenderness to palpation diffusely, positive bowel sounds, nondistended Skin: warm and dry Extremities: Absent pedal edema, Vascular: Pedal and radial pulses 2 out of 4 - Neurologic Sensorimotor examination: intact Detailed motor examination: full strength in all major muscle groups Motor examination - right side: 01/02: deltoids, biceps, triceps, wrist flexion, wrist extension, offshore wind operations manager, hip flexors, tibialis Anterior, quadriceps, toe extension (EHL), plantarflexion Motor examination - left side: 01/02: deltoids, biceps, triceps, wrist flexion, wrist extension, hip flexors, offshore wind operations manager, quadriceps, tibialis Anterior, toe extension (EHL), plantarflexion Detailed sensory examination: intact Reflex and gait examination: normal gait Reflexes: Biceps: 2+, Triceps: 2+, Brachioradialis: 2+, Patella: 2+, Achilles: 2 + Mental Status Examination: awake, alert, oriented to person, follows commands appropriately, answers questions appropriately, no aphasia, no aproxia Cranial nerve examination: PERRL, EOMI, visual cabello intact, sensory to face intact, mastication intact, no facial asymmetry is present, no dysarthria, hearing is intact symmetrically, soft palate elevates bilaterally upon phonation , flexes SCM and trapezius muscles symmetrically with full power, tongue protrudes midline, no atrophy or facial fasiculations present Cerebellar examination: no dysmetria, performs finger to nose and heel to juan symmetrically without ataxia, no gait ataxia, no truncal ataxia, no difficulty with rapid alternating movements Results - Laboratory Findings CBC and BMP: 12/14/17 04:23 12/14/17 04:23 Abnormal lab findings: Abnormal lab results RBC 3.34 M/mcL (4.19-5.50) L 12/14/17 04:23 Hgb 10.5 g/dL (12.9-16.9) L D 12/14/17 04:23 Hct 31.7 % (37.5-50.1) L 12/14/17 04:23 Sodium 134 mEq/L (136-145) L 12/14/17 04:23 BUN 44 mg/dL (6-20) H 12/14/17 04:23 Creatinine 1.73 mg/dL (0.70-1.30) H 12/14/17 04:23 Est GFR ( Amer) 50 (> 60) L 12/14/17 04:23 Est GFR (Non-Af Amer) 41 (> 60) L 12/14/17 04:23 Glucose 152 mg/dL (70-105) H 12/14/17 04:23 Consult Discharge Plan - Plan Additional Instructions: Please also follow up with appointments set up by [address] Department[address] 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 Though patient did have a significant changes noted on the right hemisphere along with mild shift due to the vasogenic edema but no sinus symptoms of herniation at this time. Clinically seems to be stable and did not have any focal motor deficit his mental status changes and these behavioral changes he has are may be not all from the tumor I suspect it is more from his underlying behavioral psychiatric care diagnoses . Regardless at this time I suggest that we should keep him on Decadron this that off for 12 hours decreased to 28 hours with GI prophylaxis He probably would need tissue diagnosis for his primary cancer We will follow oncology recommendations perhaps he may need radiation therapy as well He is at risk for seizures as well if he need sedation probably would start him on preventive medication for seizures as well We will follow the patient with you Ba Douglass MD History of Present Illness HPI: Mr. Zamora is a 57 year old male All Systems: The remainder of the systems were reviewed and are negative Physical Examination - Vital Signs Vital Signs: Initial Vital Signs Temp Pulse Resp BP Pulse Ox 98.0 F 94 18 86/55 94 12/13/17 17:51 12/13/17 17:51 12/13/17 17:51 12/13/17 17:51 12/13/17 17:51 Results - Laboratory Findings CBC and BMP: 12/14/17 04:23 12/14/17 04:23 Abnormal lab findings: Abnormal lab results RBC 3.34 M/mcL (4.19-5.50) L 12/14/17 04:23 Hgb 10.5 g/dL (12.9-16.9) L D 12/14/17 04:23 Hct 31.7 % (37.5-50.1) L 12/14/17 04:23 Sodium 134 mEq/L (136-145) L 12/14/17 04:23 BUN 44 mg/dL (6-20) H 12/14/17 04:23 Creatinine 1.73 mg/dL (0.70-1.30) H 12/14/17 04:23 Est GFR ( Amer) 50 (> 60) L 12/14/17 04:23 Est GFR (Non-Af Amer) 41 (> 60) L 12/14/17 04:23 Glucose 152 mg/dL (70-105) H 12/14/17 04:23
--- NOTE | 2017-12-14 12:47 | Internal Med Progress Note ---
Date of Encounter: 12/14/17 Time of Encounter: 12:45 - Assessment and plan (1) Acute encephalopathy Current Visit: No Status: Acute Assessment and plan: This is likely explained by his brain mets more so than his underlying psych issues although I do believe there is some psych component to his behavior in some situations such when he starts talking about mistrust issues and others trying to hurt him. We will monitor. (2) Metastatic disease Current Visit: No Status: Acute Assessment and plan: Patient has metastatic disease with the primary likely being the lung. CT abdomen and pelvis showed a spot on the liver. CT head showed brain lesion with vasogenic edema. The patient will need a biopsy of his lung mass . Pulmonary is following with plans for bronchoscopy. After that we will get oncology involved. MRI brain pending. (3) Vasogenic brain edema Current Visit: Yes Status: Acute Assessment and plan: CT head showed a heterogeneous right occipital lobe mass measuring 2.5 x 4.5 x 4.2 cm most suspicious for intracranial metastatic disease. There was right frontotemporoparietal lobe vasogenic edema. Mass effect and partial effacement of the right lateral ventricle. No significant midline shift. Neurology is following. No antiepileptics for now. Continue Decadron IV 4 mg every 8 hours.. (4) Hypertension Current Visit: No Status: Acute Assessment and plan: Continue previous antihypertensives. Qualifiers: Hypertension type: essential hypertension Qualified Code(s): I10 - Essential (primary) hypertension (5) Renal calculus Current Visit: No Status: Acute Assessment and plan: Patient has had a history of renal stones at some point required nephrostomy tubes. He is known to the urology service. We will continue to treat conservatively for now as those are small calculi. There is 1-2 mm claclulus in the proximal right ureter. There is also a 2-3 mm one on the left renal pole. Those should pass on their own. Continue with IV fluids. Antiemetics. Pain control. (6) COPD (chronic obstructive pulmonary disease) Current Visit: No Status: Chronic Assessment and plan: Resume inhalers. Patient is not in exacerbation. Not hypoxic. Qualifiers: COPD type: unspecified COPD Qualified Code(s): J44.9 - Chronic obstructive pulmonary disease, unspecified (7) Tobacco abuse Current Visit: No Status: Chronic Assessment and plan: Nicotine patch (8) Psychosis Current Visit: Yes Status: Acute Assessment and plan: Psych to see.. Qualifiers: Psychosis type: schizophrenia Schizophrenia type: unspecified Qualified Code(s): F20.9 - Schizophrenia, unspecified (9) Schizophrenia Current Visit: No Status: Acute Assessment and plan: As above. Qualifiers: Schizophrenia type: unspecified Qualified Code(s): F20.9 - Schizophrenia, unspecified (10) DVT prophylaxis Current Visit: No Status: Acute Assessment and plan: SCDs Code(s): [id number] - - Time Spent With Patient Total time spent is greater than 50% in coordination of care (as documented) at patient's floor/unit and/or counseling patient: - Subjective Interval history: Patient seen and examined. No acute events. Patient thinks that we are trying her name. Otherwise he is admitted from the psych unit after he was found to have a lung mass with likely metastasis. Afebrile. - Constitutional Vitals: Temp Pulse Resp BP Pulse Ox 98.7 F 92 18 137/72 91 12/14/17 11:46 12/14/17 11:46 12/14/17 11:46 12/14/17 11:46 12/14/17 11:46 Exam: GEN: NAD. Does not stay on topic. tangential CVS: RRR. S1, S2, No m/r/g RESP: CTAB ABD: Soft, left upper quad tenderness. ND, +BS EXT: No edema. 2+ DP, No rashes NEURO: Nonfocal Internal Medicine: Result - Labs CBC & Chem 7: 12/14/17 04:23 12/14/17 04:23 Labs: Short CBC 12/14/17 Range/Units 04:23 WBC 4.4 (4.3-11.1) K/mcL Hgb 10.5 L D (12.9-16.9) g/dL Hct 31.7 L (37.5-50.1) % Plt Count 142 (140-400) K/mcL Neutrophils # 3.4 (1.6-8.9) K/mcL BMP 12/14/17 04:23 Sodium 134 L Potassium 4.8 Chloride 100 Carbon Dioxide 29 BUN 44 H Creatinine 1.73 H Glucose 152 H Calcium 9.3 Consult Discharge Plan - Plan Additional Instructions: Please also follow up with appointments set up by [address] Department[address] Provided at discharge Referrals: Aixa Gonzalez CNP [Advanced Practice Nurse] - 12/22/17 1:45 pm
--- NOTE | 2017-12-14 15:37 | Event Note ---
Date of Encounter: 12/14/17 Time of Encounter: 15:36 Patient early on the schedule tomorrow for bronchoscopy with EBUS this is contingent upon repeat head CT tomorrow per neurology recommendations after administration of steroid to evaluate for vasogenic edema. Please keep nothing by mouth at midnight
[2017-12-14] MEDS: levETIRAcetam 250 MG TABLET PO SCH (17:58)
[2017-12-14] MEDS: traZODone 50 MG TABLET PO SCH (20:28)
--- NOTE | 2017-12-14 22:22 | Anesthesia Evaluation PreOp ---
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 History: Other (Lung ca with brain mets, acute encephalopathy,vasogenic edema, acute psychosis, schizophrenia) Other Medical History: Renal (stones) Anesthesia History: No Prior Anesthetic Complications, Past Anesthesia (hip, hernia, perc neph) Alcohol Use: none, occasionally Drug use: none, marijuana Medications and Allergies Aspirin [Adult Low Dose Aspirin EC] 81 mg PO DAILY PRN 08/16/15 [History] Lisinopril-HCTZ 20-12.5 [Prinzide 20-12.5] 1 each PO DAILY #21 tablet 04/29/16 [ Rx] Albuterol Sulfate [Ventolin Hfa] 2 puff IH Q4-6H PRN 12/01/17 [History] Vitamin E 100 unit PO DAILY 12/01/17 [History] 3 Allergy/AdvReac Type Severity Reaction Status Date / Time acetaminophen [From Vicodin] Allergy Hallucinati Verified 07/18/15 12:34 ng hydrocodone [From Vicodin] Allergy Hallucinati Verified 07/18/15 12:34 ng Penicillins [PCN] Allergy childhood Verified 08/16/15 07:59 reaction "hot feeling inside" aspirin [ASA] AdvReac Abdominal Verified 04/29/16 00:18 Pain - Meds/Allergy Pre-op Review Medications Reviewed: Yes Allergies Reviewed: Yes Beta Blockers on Current Med List: No Anesthesia Results - Labs 12/14/17 04:23 12/14/17 04:23 Anesthesia Exam Vital Signs/O2 Sat, Most Current Temp Pulse Resp BP Pulse Ox 98 F 85 17 136/71 90 12/14/17 20:13 12/14/17 20:13 12/14/17 20:13 12/14/17 20:13 12/14/17 20:13 Anesthesia Assess/Plan ASA Score: 4 Anesthetic Plan: General (pending repeat CT tomorrow to evaluate vasogenic edema ) <Arlin Hood - Last Filed: 12/15/17 16:46> Date of Encounter: 12/15/17 - Past History Pulmonary History: Other BONDED STRUCTURES REPAIRER History: Other (Lung ca with brain mets, acute encephalopathy,vasogenic edema, acute psychosis, schizophrenia Decadron new this admission re: vasogenic edema. Kepra for anti-seizure stability in pt with newly Dx Brain Mets ) Anesthesia Results - Labs 12/15/17 05:54 12/15/17 05:54 Laboratory Results WBC 8.1 K/mcL (4.3-11.1) D 12/15/17 05:54 RBC 3.06 M/mcL (4.19-5.50) L 12/15/17 05:54 Hgb 10.0 g/dL (12.9-16.9) L 12/15/17 05:54 Hct 29.8 % (37.5-50.1) L 12/15/17 05:54 MCV 97.4 fL (83.0-100.0) 12/15/17 05:54 MCH 32.7 pg (28.0-33.3) 12/15/17 05:54 MCHC 33.6 g/dL (31.6-35.5) 12/15/17 05:54 RDW 13.5 % (11.5-14.5) 12/15/17 05:54 Plt Count 128 K/mcL (140-400) L 12/15/17 05:54 MPV 9.5 fL (9.4-12.4) 12/15/17 05:54 Immature Gran % 0.7 % (0-4) 12/15/17 05:54 Seg Neutrophils % 86.5 % 12/15/17 05:54 Lymphocytes % 7.5 % 12/15/17 05:54 Monocytes % 5.3 % 12/15/17 05:54 Eosinophils % 0.0 % 12/15/17 05:54 Basophils % 0.0 % 12/15/17 05:54 Neutrophils # 7.0 K/mcL (1.6-8.9) 12/15/17 05:54 Lymphocytes # 0.6 K/mcL (0.6-4.6) 12/15/17 05:54 Monocytes # 0.4 K/mcL (0.0-1.3) 12/15/17 05:54 Eosinophils # 0.0 K/mcL (0.0-0.6) 12/15/17 05:54 Basophils # 0.0 K/mcL (0.0-0.2) 12/15/17 05:54 Sodium 139 mEq/L (136-145) 12/15/17 05:54 Potassium 4.9 mEq/L (3.5-5.1) 12/15/17 05:54 Chloride 105 mEq/L (98-107) 12/15/17 05:54 Carbon Dioxide 30 mEq/L (23-29) H 12/15/17 05:54 BUN 28 mg/dL (6-20) H 12/15/17 05:54 Creatinine 1.35 mg/dL (0.70-1.30) H 12/15/17 05:54 Est GFR ( Amer) > 60 (> 60) 12/15/17 05:54 Est GFR (Non-Af Amer) 55 (> 60) L 12/15/17 05:54 BUN/Creatinine Ratio 21 (6-26) 12/15/17 05:54 Glucose 158 mg/dL (70-105) H 12/15/17 05:54 Calculated Osmolality 297 (280-300) 12/15/17 05:54 Calcium 9.3 mg/dL (8.6-10.3) 12/15/17 05:54 Magnesium 2.0 mg/dL (1.6-2.6) 12/15/17 05:54 Impressions Head MRI 12/13/17 16:16 IMPRESSION: Large parieto-occipital brain metastasis with slight midline shift. Leptomeningeal carcinomatosis. D/ / 12/14/2017 17:48:17 Faraz Milligan MD / bcart Interpreting Provider: Faraz Milligan MD Head CT 12/15/17 07:00 IMPRESSION: Stable right parieto-occipital brain metastasis, with associated vasogenic edema and slight midline shift. No intracranial hemorrhage. D/ / 12/15/2017 09:41:09 Son Trejo MD / Anali Valdez Interpreting Provider: Son Trejo MD - Imaging EKG: image reviewed (SINUS BRADYCARDIA RIGHT ATRIAL ABNORMALITY Electronically Signed On 04-30-16 16:24:09 EDT by Nir Mayorga MD EKG dated 04/29/2016 -) Anesthesia Exam Vital Signs Temp Pulse Resp BP Pulse Ox 12/15/17 10:30 98.4 F 85 17 160/81 91 12/15/17 07:35 16 92 12/15/17 06:36 98.1 F 72 17 126/67 91 12/15/17 03:50 98 F 87 17 148/83 91 12/15/17 00:27 98.1 F 80 17 157/78 90 12/14/17 20:13 98 F 85 17 136/71 90 12/14/17 19:52 18 92 12/14/17 16:41 98.5 F 86 17 156/77 92 Intake and Output 12/15/17 12/15/17 12/15/17 07:59 15:59 23:59 Intake Total 1000 / 1000 Balance 1000 / 1000 Intake: IV Fluids 1000 / 1000 0.9 % Sodium Chloride 1,000 ML 1000 / 1000 @ 100 mls/hr IVC .Q10H YOKASTA Rx#: [id number] Oral 0 / 0 Other: Meal NPO Percent of Meal Consumed 0% # Voids 1 # Bowel Movements 0 Weight 62.823 kg Patient Weight 12/15/17 23:59 Weight 62.823 kg Height: 5'6" Weight: 138# BMI = 22.3 NPO (# of Hours): MNOc - HEENT Pupil (Motor): Pupils equal, EOMI Mallampati: III Teeth: Poor dentition Oral Opening: Less than or equal to 3 - BONDED STRUCTURES REPAIRER LOC: Oriented (Flat affect, but appropriate) BONDED STRUCTURES REPAIRER Motor: Normal RUE, Normal LUE, Normal RLE, Normal LLE, Normal Face BONDED STRUCTURES REPAIRER Sensory: Normal: RUE, LUE, RLE, LLE, Face - Cardiac Rhythm: Regular Murmur: None - Pulmonary Breath Sounds: bilateral Clear Respiratory Effort: Symmetrical Anesthesia Assess/Plan Monitoring Plan: Standard Monitors Recovery Plan: PACU Anes Supervising Prov Stmt: Pt seen/evaluated, R&B Discussed, questions answered and consent from Mother [ Mildred Zamora [phone]] - MD Jessica
[2017-12-15] MEDS: Dexamethasone 4 MG/ML VIAL IVP SCH ×3 (03:50→20:17)
[2017-12-15] MEDS: levETIRAcetam 250 MG TABLET PO SCH ×3 (05:46→18:24)
[2017-12-15 06:18] LABS: Hematocrit 29.8 % (37.5-50.1); Immature Granulocytes % 0.7 % (0-4); Lymphocytes # 0.6 K/mcL (0.6-4.6); Lymphocytes % 7.5 %; Mean Corpuscular HGB Conc 33.6 g/dL (31.6-35.5); Mean Corpuscular Hemoglobin 32.7 pg (28.0-33.3); Mean Corpuscular Volume 97.4 fL (83.0-100.0); Mean Platelet Volume 9.5 fL (9.4-12.4); Monocytes # 0.4 K/mcL (0.0-1.3); Monocytes % 5.3 %; Platelet Count 128 K/mcL (140-400); Red Blood Count 3.06 M/mcL (4.19-5.50); Red Cell Distribution Width 13.5 % (11.5-14.5); Segmented Neutrophils % 86.5 %
[2017-12-15 06:39] LABS: BUN/Creatinine Ratio 21 (6-26); Blood Urea Nitrogen 28 mg/dL (6-20); Calcium 9.3 mg/dL (8.6-10.3); Carbon Dioxide 30 mEq/L (23-29); Chloride 105 mEq/L (98-107); Glucose 158 mg/dL (70-105); Osmolality,Calculated 297 (280-300); Potassium 4.9 mEq/L (3.5-5.1); Sodium 139 mEq/L (136-145); eGFR For African Americans > 60 (> 60); eGFR For Non-African Americans 55 (> 60)
[2017-12-15] MEDS: Budesonide/Formoterol 160/4.5 MDI IH SCH ×2 (07:35→21:36)
[2017-12-15] MEDS: 0.9 % Sodium Chloride 1,000 ML IVC SCH ×2 (08:29→08:46)
[2017-12-15] MEDS: Nicotine 21 MG PATCH.TD24 TD SCH (08:39)
[2017-12-15] MEDS: risperiDONE 1 MG TABLET PO SCH ×2 (08:39→20:17)
--- NOTE | 2017-12-15 08:48 | Internal Med Progress Note ---
Date of Encounter: 12/15/17 Time of Encounter: 08:47 - Assessment and plan (1) Acute encephalopathy Current Visit: No Status: Acute Assessment and plan: This is likely explained by his brain mets more so than his underlying psych issues although I do believe there is some psych component to his behavior in some situations such when he starts talking about mistrust issues and others trying to hurt him. We will monitor. (2) Metastatic disease Current Visit: No Status: Acute Assessment and plan: Patient has metastatic disease with the primary likely being the lung. CT abdomen and pelvis showed a spot on the liver. CT head showed brain lesion with vasogenic edema. MRI brain with large parieto-occipital brain mets with slight midline shift. Leptomeningeal carcinomatosis. The patient will need a biopsy of his lung mass . Pulmonary is following with plans for bronchoscopy today. c/s oncology. (3) Vasogenic brain edema Current Visit: Yes Status: Acute Assessment and plan: CT head showed a heterogeneous right occipital lobe mass measuring 2.5 x 4.5 x 4.2 cm most suspicious for intracranial metastatic disease. There was right frontotemporoparietal lobe vasogenic edema. Mass effect and partial effacement of the right lateral ventricle. No significant midline shift. Neurology is following. No antiepileptics for now. Continue Decadron IV 4 mg every 8 hours.. (4) Hypertension Current Visit: No Status: Acute Assessment and plan: Continue previous antihypertensives. Qualifiers: Hypertension type: essential hypertension Qualified Code(s): I10 - Essential (primary) hypertension (5) Renal calculus Current Visit: No Status: Acute Assessment and plan: Patient has had a history of renal stones at some point required nephrostomy tubes. He is known to the urology service. We will continue to treat conservatively for now as those are small calculi. There is 1-2 mm claclulus in the proximal right ureter. There is also a 2-3 mm one on the left renal pole. Those should pass on their own. Continue with IV fluids. Antiemetics. Pain control. (6) COPD (chronic obstructive pulmonary disease) Current Visit: No Status: Chronic Assessment and plan: Resume inhalers. Patient is not in exacerbation. Not hypoxic. Qualifiers: COPD type: unspecified COPD Qualified Code(s): J44.9 - Chronic obstructive pulmonary disease, unspecified (7) Tobacco abuse Current Visit: No Status: Chronic Assessment and plan: Nicotine patch (8) Psychosis Current Visit: Yes Status: Acute Assessment and plan: Psych to see.. Qualifiers: Psychosis type: schizophrenia Schizophrenia type: unspecified Qualified Code(s): F20.9 - Schizophrenia, unspecified (9) Schizophrenia Current Visit: No Status: Acute Assessment and plan: As above. Qualifiers: Schizophrenia type: unspecified Qualified Code(s): F20.9 - Schizophrenia, unspecified (10) DVT prophylaxis Current Visit: No Status: Acute Assessment and plan: SCDs Code(s): [id number] - - Time Spent With Patient Total time spent is greater than 50% in coordination of care (as documented) at patient's floor/unit and/or counseling patient: - Subjective Interval history: Patient seen and examined. No acute events. Gets into episodes of psychosis where he thinks we are trying to hurt him. Otherwise he is admitted from the psych unit after he was found to have a lung mass with likely metastasis. Afebrile. - Constitutional Vitals: Temp Pulse Resp BP Pulse Ox 98.1 F 72 17 126/67 91 12/15/17 06:36 12/15/17 06:36 12/15/17 06:36 12/15/17 06:36 12/15/17 06:36 Exam: GEN: NAD. Does not stay on topic. tangential CVS: RRR. S1, S2, No m/r/g RESP: CTAB ABD: Soft, left upper quad tenderness. ND, +BS EXT: No edema. 2+ DP, No rashes NEURO: Nonfocal Internal Medicine: Result - Labs CBC & Chem 7: 12/15/17 05:54 12/15/17 05:54 Labs: Short CBC 12/15/17 Range/Units 05:54 WBC 8.1 D (4.3-11.1) K/mcL Hgb 10.0 L (12.9-16.9) g/dL Hct 29.8 L (37.5-50.1) % Plt Count 128 L (140-400) K/mcL Neutrophils # 7.0 (1.6-8.9) K/mcL BMP 12/15/17 05:54 Sodium 139 Potassium 4.9 Chloride 105 Carbon Dioxide 30 H BUN 28 H Creatinine 1.35 H Glucose 158 H Calcium 9.3 - Impressions Impressions Head MRI 12/13/17 16:16 IMPRESSION: Large parieto-occipital brain metastasis with slight midline shift. Leptomeningeal carcinomatosis. D/ / 12/14/2017 17:48:17 Faraz Milligan MD / liset Interpreting Provider: Faraz Milligan MD Consult Discharge Plan - Plan Additional Instructions: Please also follow up with appointments set up by [address] Department. Provided at discharge Referrals: Aixa Gonzalez CNP [Advanced Practice Nurse] - 12/22/17 1:45 pm
--- NOTE | 2017-12-15 09:56 | Neurology Progress Note ---
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 There is a slight midline shift was stable from yesterday. Patient has been started on Keppra for seizure prophylaxis. Patient will continue IV steroids Patient may undergo bronchoscopy today. (2) Psychosis Current Visit: Yes Status: Acute as per psych Qualifiers: Psychosis type: schizophrenia Schizophrenia type: unspecified Qualified Code(s): F20.9 - Schizophrenia, unspecified (3) Vasogenic brain edema Current Visit: Yes Status: Acute continue decadron. Subjective Principal diagnosis: Lung mass Interval history: no acute events overnight. Patient is awake, alert and oriented to self, place and time. Plan is to undergo bronchoscopy today. Objective - Constitutional Vitals: Temp Pulse Resp BP Pulse Ox 98.1 F 72 17 126/67 91 12/15/17 06:36 12/15/17 06:36 12/15/17 06:36 12/15/17 06:36 12/15/17 06:36 General appearance: Present: A&O X 3 - Neurological Exam Sensorimotor examination: Present: intact Motor Examination: Present: full strength in all major muscle groups Motor examination - right side: 5/5: deltoids, biceps, triceps, wrist flexion, wrist extension, plisse machine operator helper, hip flexors, tibialis Anterior, quadriceps, toe extension (EHL), plantarflexion Motor examination - left side: 5/5: deltoids, biceps, triceps, wrist flexion, wrist extension, hip flexors, plisse machine operator helper, quadriceps, tibialis Anterior, toe extension (EHL), plantarflexion Sensation intact: Present: intact Reflex and gait examination: normal gait Reflexes: Biceps: 2+, Triceps: 2+, Brachioradialis: 2+, Patella: 2+, Achilles: 2 + Mental Status Examination: Present: awake, alert, oriented to person, oriented to place, oriented to time, follows commands appropriately, answers questions appropriately, no aphasia, no aproxia Cranial nerve examination: Present: PERRL, EOMI, visual cabello intact, sensory to face intact, mastication intact, no facial asymmetry is present, no dysarthria, hearing is intact symmetrically, soft palate elevates bilaterally upon phonation, flexes SCM and trapezius muscles symmetrically with full power, tongue protrudes midline, no atrophy or facial fasiculations present Cerebellar examination: Present: no dysmetria, performs finger to nose and heel to juan symmetrically without ataxia, no gait ataxia, no truncal ataxia, no difficulty with rapid alternating movements - Other Additional findings: General: without distress Heart: Regular rate and rhythm with no murmur Lungs: Clear bilaterally Abdomen: Soft, mild tenderness to palpation diffusely, positive bowel sounds, nondistended Skin: warm and dry Extremities: Absent pedal edema, Vascular: Pedal and radial pulses 2 out of 4 Results - Laboratory Findings CBC and BMP: 12/15/17 05:54 12/15/17 05:54 Abnormal lab findings: Abnormal lab results RBC 3.06 M/mcL (4.19-5.50) L 12/15/17 05:54 Hgb 10.0 g/dL (12.9-16.9) L 12/15/17 05:54 Hct 29.8 % (37.5-50.1) L 12/15/17 05:54 Plt Count 128 K/mcL (140-400) L 12/15/17 05:54 Carbon Dioxide 30 mEq/L (23-29) H 12/15/17 05:54 BUN 28 mg/dL (6-20) H 12/15/17 05:54 Creatinine 1.35 mg/dL (0.70-1.30) H 12/15/17 05:54 Est GFR (Non-Af Amer) 55 (> 60) L 12/15/17 05:54 Glucose 158 mg/dL (70-105) H 12/15/17 05:54 Consult Discharge Plan - Plan Additional Instructions: Please also follow up with appointments set up by [facility]. 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 CT scan of the head remained stable despite the fact that he did have significant vasogenic edema currently on Decadron suggested to continue also added Keppra for seizure prevention Ba Douglass MD Objective - Constitutional Vitals: Temp Pulse Resp BP Pulse Ox 98.4 F 85 17 160/81 91 12/15/17 10:30 12/15/17 10:30 12/15/17 10:30 12/15/17 10:30 12/15/17 10:30 Results - Laboratory Findings CBC and BMP: 12/15/17 05:54 12/15/17 05:54 Abnormal lab findings: Abnormal lab results RBC 3.06 M/mcL (4.19-5.50) L 12/15/17 05:54 Hgb 10.0 g/dL (12.9-16.9) L 12/15/17 05:54 Hct 29.8 % (37.5-50.1) L 12/15/17 05:54 Plt Count 128 K/mcL (140-400) L 12/15/17 05:54 Carbon Dioxide 30 mEq/L (23-29) H 12/15/17 05:54 BUN 28 mg/dL (6-20) H 12/15/17 05:54 Creatinine 1.35 mg/dL (0.70-1.30) H 12/15/17 05:54 Est GFR (Non-Af Amer) 55 (> 60) L 12/15/17 05:54 Glucose 158 mg/dL (70-105) H 12/15/17 05:54
--- NOTE | 2017-12-15 11:57 | Event Note ---
Date of Encounter: 12/15/17 Time of Encounter: 11:55 I discussed with the attending neurologist (Dr Douglass) regarding this case he feels patient is stable from neurological standpoint to proceed with bronchoscopy TODAY appreciate consultation and recommendations
--- NOTE | 2017-12-15 12:48 | Oncology Inp Consult Note ---
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 Discussed brain MRI results with patient and patients son today. High suspicion for malignancy was discussed with biopsy and pathology needed for confirmation. We also discussed radiographic findings of leptomeningeal carcinomatosis which is likely the cause of his presenting and continued symptoms. The natural history and prognosis of presumed lung cancer with brain metastasis and leptomeningeal carcinomatosis was discussed at today's visit. Introduced the idea of palliative radiotherapy, which would help to control his symptoms and improve QOL. Patient wishes to pursue radiation treatment and will plan to discuss risks and benefits further with radiation oncology. Will plan to consult radiation oncology if bronchoscopy today reveals high suspicion of malignancy, treatment plan and discussion may then be initiated, if radiotherapy agreed upon treatment will not begin until pathology confirms malignancy. He remains symptomatic with report of headache, disequilibrium/dizziness causing inability to ambulate along with falls at home, nausea and vomiting ( although no vomiting recorded since admission to unit). He denies visual changes , numbness or tingling. Continue Decadron- Increased dose to 8 mg Q8 hours IV. Avoid any blood thinner/anticoagulation. Likely consult radiation oncology following bronchoscopy. Neurology has started Keppra for seizure prevention. Continue supportive treatment. 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 Discussed radiographic findings highly suggestive of malignancy with patient and patients son at bedside today. Patient understands extent of disease and incurable diagnosis, with now ominous finding of leptomeningeal disease. General prognosis was discussed. Planned to undergo bronchoscopy today. If malignancy highly suspected following bronchoscopy, will consult radiation therapy to potentially begin treatment planning. Further treatment options to be discussed following final pathology report. He will likely plan for palliative radiation to brain mass/leptomeningeal disease with further systemic treatment options to follow. Role for targeted immunotherapy to be determined with final pathology. Please refer to Dr. Lin's attestation below for additional details. - Data of Consult Patient: new to practice Consult date: 12/15/17 Requesting Physician: Merline Connors Primary Care Provider: PCP NONE - Consult Narrative Reason for consult: Metastatic carcinoma with lung mass, liver lesion, brain mass History of present illness: Mr. Zamora is a 57 year old male with past medical history significant for schizophrenia, COPD, HTN and tobacco abuse, presented to the ER on 12/01/2017 with active suicidal ideation and reports of headaches with falls at home. He has a history of psychosis and was admitted under the psychiatrist service for psychosis/visual hallucinations. During his admission under psych service, he underwent further workup for abdominal pain. CT abdomen/pelvis identified small non-obstructing kidney stones and irregular low-density hepatic lesion inferiorly in the right hepatic lobe not significantly changed in size since 2014, measuring up to 1.6 cm. Chest x-ray identified a right hilar mass, followed with CT Chest which confirmed a large mass in the superior segment of the right lower lobe abutting the posterior aspect of the right hilum suspicious for neoplasm with small satellite nodules or infiltrate. The mass was measured at 5.5 x 5.5 x 5.0 cm. MRI brain reveals a large parieto-occipital brain metastasis with mass effect with vasogenic edema and slight midline shift along with leptomeningeal carcinomatosis. Mr. Zamora as smoked 1-4 PPD for a number of years. Past Med Surg Social Fam HX - Past Medical History Medical history: COPD, hypertension, kidney stones, migraine Psychiatric history: previous psychiatric hospitalization - Past Surgical History Surgical History: no surgical history - Social History Smoking Status: Current every day smoker Smokeless Tobacco Status: No Alcohol use: none, occasionally Drug use: none, marijuana - Family History Brother Family Member Ethnicity: Non- Living Status: Hx Family Cardiac Disorders: Yes ([place]) Hx Family Endocrine Disorder: Yes ([place]) Sister Family Member Ethnicity: Non- Living Status: Father Family Member Ethnicity: Non- Living Status: Hx Family Cardiac Disorders: Yes (HD, CHF) Mother Family Member Ethnicity: Non- Living Status: Still Living Hx Family Neurologic Disorders: Yes (Dementia) Medications and Allergies Aspirin [Adult Low Dose Aspirin EC] 81 mg PO DAILY PRN 08/16/15 [History] Lisinopril-HCTZ 20-12.5 [Prinzide 20-12.5] 1 each PO DAILY #21 tablet 04/29/16 [ Rx] Albuterol Sulfate [Ventolin Hfa] 2 puff IH Q4-6H PRN 12/01/17 [History] Vitamin E 100 unit PO DAILY 12/01/17 [History] 3 Allergy/AdvReac Type Severity Reaction Status Date / Time acetaminophen [From Vicodin] Allergy Hallucinati Verified 07/18/15 12:34 ng hydrocodone [From Vicodin] Allergy Hallucinati Verified 07/18/15 12:34 ng Penicillins [PCN] Allergy childhood Verified 08/16/15 07:59 reaction "hot feeling inside" aspirin [ASA] AdvReac Abdominal Verified 04/29/16 00:18 Pain Constitutional: Present: fatigue, frequent falls, weakness. Absent: chills, fever(s) Eyes: Absent: change in vision Nose, mouth and throat: Present: headache(s) Cardiovascular: Absent: chest pain Respiratory: Present: cough, dyspnea Gastrointestinal: Present: abdominal pain, nausea, vomiting. Absent: hematemesis, hematochezia, melena Musculoskeletal: Present: muscle weakness Additional comments: reports difficulty with ambulation due to dizziness Integumentary: Absent: wounds Neurological: Present: disequilibrium, headache(s). Absent: numbness, tingling Psychiatric: Present: as per HPI, auditory hallucinations, depression, paranoia. Absent: suicidal ideation Additional comments: History of the above, reports depression and sadness during today's visit, reports he does not wish to harm himself, no report of recent auditory hallucinations. Hematologic/Lymphatic: Present: as per HPI Oncology - Exam - Constitutional Vitals: Temp Pulse Resp BP Pulse Ox 98.4 F 85 17 160/81 91 12/15/17 10:30 12/15/17 10:30 12/15/17 10:30 12/15/17 10:30 12/15/17 10:30 General appearance: cooperative, no acute distress, no febrile - Head Head exam: Present: atraumatic - ENT ENT exam: Present: mucous membranes moist - Respiratory Respiratory exam: Present: CTAB. Absent: respiratory distress - Cardiovascular Cardiovascular exam: Present: RRR, +S1, +S2 - GI/Abdominal GI/Abdominal exam: Present: normal bowel sounds, soft. Absent: tenderness - Extremities Exam Extremities exam: Present: normal inspection. Absent: calf tenderness - Neurological Exam Neurological exam: Present: alert, oriented X3, no focal deficits, strengths equal and symetr throughout Additional comments: calm and cooperative, responds appropriately with statements that verify understanding of information presented - Psychiatric Psychiatric exam: Present: depressed, flat affect. Absent: suicidal ideation - Skin Skin exam: Present: dry, intact, normal color, warm Oncology - Results Labs: Short CBC 12/15/17 Range/Units 05:54 WBC 8.1 D (4.3-11.1) K/mcL Hgb 10.0 L (12.9-16.9) g/dL Hct 29.8 L (37.5-50.1) % Plt Count 128 L (140-400) K/mcL Neutrophils # 7.0 (1.6-8.9) K/mcL BMP 12/15/17 05:54 Sodium 139 Potassium 4.9 Chloride 105 Carbon Dioxide 30 H BUN 28 H Creatinine 1.35 H Glucose 158 H Calcium 9.3 Consult Discharge Plan - Plan Additional Instructions: Please also follow up with appointments set up by [address] Department. Provided at discharge Referrals: Aixa Gonzalez, HOME HEALTH SCHEDULER [Advanced Practice Nurse] - 12/22/17 1:45 pm <Festus Lin - Last Filed: 12/16/17 09:15> Date of Encounter: 12/15/17 - Data of Consult Requesting Physician: Merline Connors Primary Care Provider: PCP NONE - Consult Narrative History of present illness: Mr. Zamora is a 57 year old male Oncology - Exam - Constitutional Vitals: Temp Pulse Resp BP Pulse Ox 97.8 F 68 18 147/71 97 12/16/17 06:45 12/16/17 06:45 12/16/17 06:45 12/16/17 06:45 12/16/17 06:45 Oncology - Results Labs: Short CBC 12/16/17 Range/Units 06:31 WBC 8.7 (4.3-11.1) K/mcL Hgb 9.7 L (12.9-16.9) g/dL Hct 29.4 L (37.5-50.1) % Plt Count 131 L (140-400) K/mcL Neutrophils # 7.8 (1.6-8.9) K/mcL BMP 12/16/17 06:31 Sodium 142 Potassium 4.7 Chloride 103 Carbon Dioxide 33 H BUN 25 H Creatinine 1.25 Glucose 140 H Calcium 9.2 - Attending Attestation seen and examined patient and agree with assessment and plan. PAtient likely has metastatic lung cancer. He is quite symptomatic from the brain met and the leptomeningeal spread. He is not in extremis and could benefit from brain radiation. If he is PL1 +, he could also benefit from immunotherapy. Await bx from bronchoscopy. He understands the situation. We spoke with him and his son.
--- NOTE | 2017-12-15 16:22 | Consult Note ---
Date of Encounter: 12/15/17 Time of Encounter: 15:15 Assessment & Recommendation (1) Schizophrenia Current visit: No Status: Acute Qualifiers: Schizophrenia type: disorganized schizophrenia Qualified Code(s): F20.1 - Disorganized schizophrenia History of Present Illness Patient: known to practice within the last 3 years Requesting Physician: Merline Connors Reason for consult: management History of present illness: Mr. Zamora is a 57 year old male This patient is known to me. I was the attending physician on 18 prior to his transfer to medical area This patient has schizophrenia. It is of the disorganized type. He has some inappropriate affect and disturbances of cognition. He has loose association. He does not have prominent hallucinations or delusions. Nonetheless I was able to see him after he had talked to medical staff and he had some idiosyncratic understanding of his illness. He believes his illnesses caused by tobacco. 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 We know from his inpatient stay that he was untreated for a long period of time. We will use a low dose of risperidone. Patients with disorganized schizophrenia do not always respond very well to antipsychotics. Now that he has a serious medical condition his cognition is cold and question. Therefore for major decisions regarding treatment and diagnostic procedures it would be best to have his next of kin such as his mother who is his payee or possibly a son who is 21 to help in decision making process. The patient is likely to interpret medical information idiosyncratically and may not be able to manipulate it correctly he may need assistance in determining the risks and benefits. Our efforts will be to continue the antipsychotic to maintain his quality of life. For depressive symptoms and anxiety symptoms mirtazapine 7.5 mg could be continued night as an adjunctive anti-antidepressant. If discharged he would require follow-up at a [facility] and case management would be of assistance as well. CC: Merline Connors Past Med Surg Social Fam HX - Past Medical History Medical history: COPD, hypertension, kidney stones, migraine - Past Surgical History Surgical History: no surgical history - Social History Smoking Status: Current every day smoker Smokeless Tobacco Status: No Alcohol use: none, occasionally Drug use: none, marijuana - Family History Brother Family Member Ethnicity: Non- Living Status: Hx Family Cardiac Disorders: Yes ([place]) Hx Family Endocrine Disorder: Yes ([place]) Sister Family Member Ethnicity: Non- Living Status: Father Family Member Ethnicity: Non- Living Status: Hx Family Cardiac Disorders: Yes (HD, CHF) Mother Family Member Ethnicity: Non- Living Status: Still Living Hx Family Neurologic Disorders: Yes (Dementia) Medications & Allergies Aspirin [Adult Low Dose Aspirin EC] 81 mg PO DAILY PRN 08/16/15 [History] Lisinopril-HCTZ 20-12.5 [Prinzide 20-12.5] 1 each PO DAILY #21 tablet 04/29/16 [ Rx] Albuterol Sulfate [Ventolin Hfa] 2 puff IH Q4-6H PRN 12/01/17 [History] Vitamin E 100 unit PO DAILY 12/01/17 [History] 3 Allergy/AdvReac Type Severity Reaction Status Date / Time acetaminophen [From Vicodin] Allergy Hallucinati Verified 07/18/15 12:34 ng hydrocodone [From Vicodin] Allergy Hallucinati Verified 07/18/15 12:34 ng Penicillins [PCN] Allergy childhood Verified 08/16/15 07:59 reaction "hot feeling inside" aspirin [ASA] AdvReac Abdominal Verified 04/29/16 00:18 Pain Review of Systems Psychiatric: Reports: anxiety, abnormal sleep pattern, hopelessness Psychiatry Exam - Constitutional Vitals: Temp Pulse Resp BP Pulse Ox 98.4 F 85 17 160/81 91 12/15/17 10:30 12/15/17 10:30 12/15/17 10:30 12/15/17 10:30 12/15/17 10:30 General appearance: age & developmentally appropriate, well-groomed, well- nourished - Musculoskeletal Gait: normal Station: relaxed Strength & Tone: normal for patient - Psychiatric Patient Orientation: Yes Person, Yes Time, Yes Place Level of alertness: Alert Behavior: calm, cooperative Psychomotor activity: Normal Eye Contact: Maintains Eye Contact Mood Description: Depressed Affect description: congruent with mood Speech Volume: Normal Speech pattern: normal rate, normal rhythm, normal tone, fluent, Inappropriate to situation Language & Vocabulary: consistent with education Thought Process: Circumstantial, Loose Associations, Tangential Thought Content: No Suicidal ideation, No Homicidal ideation, No Overt delusions , Yes Somatic delusion Perceptual Disturbances: No Auditory hallucinations, No Visual hallucinations Attention Span Ability: Capable of Sustained Attention Memory Description: Grossly Intact Fund of knowledge: Yes below average Intelligence Estimate: Average Judgment: Limited Insight: Minimal Results - Labs Labs: Laboratory Last Values WBC 8.1 K/mcL (4.3-11.1) D 12/15/17 05:54 RBC 3.06 M/mcL (4.19-5.50) L 12/15/17 05:54 Hgb 10.0 g/dL (12.9-16.9) L 12/15/17 05:54 Hct 29.8 % (37.5-50.1) L 12/15/17 05:54 MCV 97.4 fL (83.0-100.0) 12/15/17 05:54 MCH 32.7 pg (28.0-33.3) 12/15/17 05:54 MCHC 33.6 g/dL (31.6-35.5) 12/15/17 05:54 RDW 13.5 % (11.5-14.5) 12/15/17 05:54 Plt Count 128 K/mcL (140-400) L 12/15/17 05:54 MPV 9.5 fL (9.4-12.4) 12/15/17 05:54 Immature Gran % 0.7 % (0-4) 12/15/17 05:54 Seg Neutrophils % 86.5 % 12/15/17 05:54 Lymphocytes % 7.5 % 12/15/17 05:54 Monocytes % 5.3 % 12/15/17 05:54 Eosinophils % 0.0 % 12/15/17 05:54 Basophils % 0.0 % 12/15/17 05:54 Neutrophils # 7.0 K/mcL (1.6-8.9) 12/15/17 05:54 Lymphocytes # 0.6 K/mcL (0.6-4.6) 12/15/17 05:54 Monocytes # 0.4 K/mcL (0.0-1.3) 12/15/17 05:54 Eosinophils # 0.0 K/mcL (0.0-0.6) 12/15/17 05:54 Basophils # 0.0 K/mcL (0.0-0.2) 12/15/17 05:54 Sodium 139 mEq/L (136-145) 12/15/17 05:54 Potassium 4.9 mEq/L (3.5-5.1) 12/15/17 05:54 Chloride 105 mEq/L (98-107) 12/15/17 05:54 Carbon Dioxide 30 mEq/L (23-29) H 12/15/17 05:54 BUN 28 mg/dL (6-20) H 12/15/17 05:54 Creatinine 1.35 mg/dL (0.70-1.30) H 12/15/17 05:54 Est GFR ( Amer) > 60 (> 60) 12/15/17 05:54 Est GFR (Non-Af Amer) 55 (> 60) L 12/15/17 05:54 BUN/Creatinine Ratio 21 (6-26) 12/15/17 05:54 Glucose 158 mg/dL (70-105) H 12/15/17 05:54 Calculated Osmolality 297 (280-300) 12/15/17 05:54 Calcium 9.3 mg/dL (8.6-10.3) 12/15/17 05:54 Magnesium 2.0 mg/dL (1.6-2.6) 12/15/17 05:54 - Impressions Impressions Head MRI 12/13/17 16:16 IMPRESSION: Large parieto-occipital brain metastasis with slight midline shift. Leptomeningeal carcinomatosis. D/ / 12/14/2017 17:48:17 Faraz Milligna MD / bcarter Interpreting Provider: Faraz Milligan MD Head CT 12/15/17 07:00 IMPRESSION: Stable right parieto-occipital brain metastasis, with associated vasogenic edema and slight midline shift. No intracranial hemorrhage. D/ / 12/15/2017 09:41:09 Son Trejo MD / Anali Valdez Interpreting Provider: Son Trejo MD Consult Discharge Plan - Plan Additional Instructions: Please also follow up with appointments set up by [address] Department. Provided at discharge Referrals: Aixa Gonzalez, MOUNIKA [Advanced Practice Nurse] - 12/22/17 1:45 pm
[2017-12-15] MEDS ORDERED: *HR* Labetalol 20 MG/4 ML SYRINGE IVP PRN (17:11)
[2017-12-15] MEDS ORDERED: Ondansetron 4 MG/2 ML VIAL IVP ONE (17:11)
[2017-12-15] MEDS ORDERED: Albuterol 2.5 MG/3 ML NEBULIZER IH ONE (17:11)
[2017-12-15 18:27] LABS: Source of Body Fluid RLL BAL
[2017-12-15] MEDS ORDERED: Lidocaine -MPF 2% 2 ML VIAL ONE ×2 (18:31)
[2017-12-15] MEDS ORDERED: Ondansetron 4 MG/2 ML VIAL ONE (18:31)
[2017-12-15] MEDS ORDERED: Lidocaine -MPF 4% 5 ML AMPUL ONE (18:31)
[2017-12-15] MEDS ORDERED: Dexamethasone 4 MG/ML VIAL ONE (18:31)
[2017-12-15] MEDS ORDERED: *HR* Midazolam HCl 2 MG/2 ML VIAL ONE (18:31)
[2017-12-15] MEDS ORDERED: *HR* Propofol 200 MG/20 ML VIAL IVP ONE (18:31)
[2017-12-15] MEDS ORDERED: *HR* FentaNYL (PF) 100 MCG/2 ML VIAL ONE (18:31)
--- NOTE | 2017-12-15 19:01 | Anesthesia Evaluation Post Op ---
Date of Encounter: 12/15/17 Time of Encounter: 18:55 - Vital Signs Vital Signs: Vital Signs/O2 Sat/Glucose, Most Current Temp Pulse Resp BP Pulse Ox 12/15/17 18:32 98.1 F 79 16 168/86 96 12/15/17 18:06 98.7 F 85 20 154/81 95 12/15/17 17:56 86 20 157/79 94 12/15/17 17:46 85 14 157/78 97 12/15/17 17:36 98.6 F 87 12 173/83 99 - Lungs Lungs: Clear Ascult./Percussion - Airway Airway: Non-obstructed - Cardiovascular Regular Rate - Mental Status Mental Status: Alert & Oriented, Answers Appropriately - Pain Pain Scale: 0 Pain Scale used: Numeric (1 - 10) - Nausea Vomiting Nausea Vomiting: Not Present - Hydration Hydration: Tolerates oral liquids, Able to void - Discharge PostOp Status: Transfer Patient to floor Anes Supervising Prov Stmt: Pt seen/evaluated, VSS And pt has met criteria for discharge to home. - MD Jessica
[2017-12-15] MEDS: traZODone 50 MG TABLET PO SCH (20:17)
[2017-12-15 22:22] LABS: Appearance of Body Fluid Hazy (Clear); Volume of Body Fluid 45 mL
[2017-12-16] MEDS: Dexamethasone 4 MG/ML VIAL IVP SCH ×3 (03:27→21:48)
[2017-12-16] MEDS: Acetaminophen 325 MG TABLET PO PRN ×2 (03:33→21:49)
[2017-12-16] MEDS: levETIRAcetam 250 MG TABLET PO SCH ×2 (06:14→17:54)
[2017-12-16 06:57] LABS: Hematocrit 29.4 % (37.5-50.1); Hemoglobin 9.7 g/dL (12.9-16.9); Immature Granulocytes % 0.7 % (0-4); Lymphocytes # 0.6 K/mcL (0.6-4.6); Lymphocytes % 6.4 %; Mean Corpuscular Hemoglobin 32.3 pg (28.0-33.3); Mean Platelet Volume 9.9 fL (9.4-12.4); Monocytes # 0.3 K/mcL (0.0-1.3); Monocytes % 3.2 %; Neutrophils # 7.8 K/mcL (1.6-8.9); Platelet Count 131 K/mcL (140-400); Red Cell Distribution Width 13.5 % (11.5-14.5); Segmented Neutrophils % 89.7 %
[2017-12-16] MEDS: 0.9 % Sodium Chloride 1,000 ML IVC SCH ×3 (07:16→20:14)
[2017-12-16 07:31] LABS: BUN/Creatinine Ratio 20 (6-26); Blood Urea Nitrogen 25 mg/dL (6-20); Calcium 9.2 mg/dL (8.6-10.3); Carbon Dioxide 33 mEq/L (23-29); Chloride 103 mEq/L (98-107); Glucose 140 mg/dL (70-105); Osmolality,Calculated 301 (280-300); Potassium 4.7 mEq/L (3.5-5.1); Sodium 142 mEq/L (136-145); eGFR For African Americans > 60 (> 60); eGFR For Non-African Americans 60 (> 60)
--- NOTE | 2017-12-16 08:00 | Pulmonology Progress Note ---
Date of Encounter: 12/16/17 Time of Encounter: 08:00 Assessment and Plan (1) Lung mass Current Visit: No Status: Acute 57-year-old gentleman past medical history of tobacco abuse who was found to have CT imaging concerning for primary lung malignancy head CT notable for likely metastatic disease. Status post bronchoscopy with pathology being evaluated should be available in the next 24-48 hours Oncology following patient for possibility of radiation oncology to brain met Stable otherwise from pulmonary standpoint Pulmonary follow peripherally pending tissue diagnosis (2) Schizophrenia Current Visit: No Status: Acute Continue psychiatric evaluation Qualifiers: Schizophrenia type: disorganized schizophrenia Qualified Code(s): F20.1 - Disorganized schizophrenia (3) Tobacco abuse counseling Current Visit: No Status: Acute Patient has been trying to quit and I encouraged him to do so nicotine replacement as needed while inpatient Subjective Principal diagnosis: Lung mass Interval history: Mr. Zamora underwent bronchoscopy yesterday with endobronchial ultrasound and fine-needle aspiration of the right lower lobe mass. This was procedure was uneventful and was tolerated without untoward effect. Patient is resting comfortably in bed today says he does not have any complaints except that he is slightly dizzy is joined by his sons at bedside Objective PUL Vital signs: Last Vital Signs Temp 97.8 F 12/16/17 06:45 Pulse 68 12/16/17 06:45 Resp 18 12/16/17 06:45 BP 147/71 12/16/17 06:45 Pulse Ox 97 12/16/17 06:45 General appearance: no acute distress Effort: normal Auscultation: bilateral: clear Cardiovascular: regular rate and rhythm non-focal exam, pupils equal and round other (Flat affect appreciate) Results - Laboratory Findings CBC and BMP: 12/16/17 06:31 12/16/17 06:31 Abnormal lab findings: Abnormal lab results RBC 3.00 M/mcL (4.19-5.50) L 12/16/17 06:31 Hgb 9.7 g/dL (12.9-16.9) L 12/16/17 06:31 Hct 29.4 % (37.5-50.1) L 12/16/17 06:31 Plt Count 131 K/mcL (140-400) L 12/16/17 06:31 Carbon Dioxide 33 mEq/L (23-29) H 12/16/17 06:31 BUN 25 mg/dL (6-20) H 12/16/17 06:31 Glucose 140 mg/dL (70-105) H 12/16/17 06:31 Calculated Osmolality 301 (280-300) H 12/16/17 06:31 Fluid Appearance Hazy (Clear) A 12/15/17 17:11 - Microbiology Findings Microbiology Findings: Microbiology, Last 48 Hours 12/15/17 17:11 Gram Stain - Final Right Lower Lobe Lung - Clinical Findings Intake & Output: Intake & Output 12/15/17 12/16/17 12/16/17 23:59 07:59 15:59 Intake Total 0 / 0 240 / 240 Output Total 0 / 0 Balance 0 / 0 240 / 240 Weight 63.4 kg Consult Discharge Plan - Plan Additional Instructions: Please also follow up with appointments set up by [address] Department. Provided at discharge Referrals: Aixa Gonzalez, MOUNIKA [Advanced Practice Nurse] - 12/22/17 1:45 pm
[2017-12-16] MEDS: risperiDONE 1 MG TABLET PO SCH ×2 (09:22→21:48)
[2017-12-16] MEDS: Nicotine 21 MG PATCH.TD24 TD SCH (09:22)
--- NOTE | 2017-12-16 10:32 | Internal Med Progress Note ---
Date of Encounter: 12/16/17 Time of Encounter: 10:29 - Assessment and plan (1) Acute metabolic encephalopathy Current Visit: Yes Status: Acute Assessment and plan: This is likely explained by his brain mets more so than his underlying psych issues although I do believe there is some psych component to his behavior in some situations such when he starts talking about mistrust issues and others trying to hurt him. We will monitor. (2) Metastatic disease Current Visit: No Status: Acute Assessment and plan: Patient has metastatic disease with the primary likely being the lung. CT abdomen and pelvis showed a spot on the liver. CT head showed brain lesion with vasogenic edema. MRI brain with large parieto-occipital brain mets with slight midline shift. Leptomeningeal carcinomatosis. oncology following. Radiation onc consult up to medical onc. s/p biopsy. f/u on path (3) Vasogenic brain edema Current Visit: Yes Status: Acute Assessment and plan: CT head showed a heterogeneous right occipital lobe mass measuring 2.5 x 4.5 x 4.2 cm most suspicious for intracranial metastatic disease. There was right frontotemporoparietal lobe vasogenic edema. Mass effect and partial effacement of the right lateral ventricle. No significant midline shift. Neurology is following. Keppra started 12/15. Continue Decadron IV 4 mg every 8 hours. Will talk to neurology about pastry baker plans for that.. (4) Hypertension Current Visit: No Status: Acute Assessment and plan: Continue previous antihypertensives. Qualifiers: Hypertension type: essential hypertension Qualified Code(s): I10 - Essential (primary) hypertension (5) Renal calculus Current Visit: No Status: Acute Assessment and plan: Patient has had a history of renal stones at some point required nephrostomy tubes. He is known to the urology service. We will continue to treat conservatively for now as those are small calculi. There is 1-2 mm claclulus in the proximal right ureter. There is also a 2-3 mm one on the left renal pole. Those should pass on their own. Continue with IV fluids. Antiemetics. Pain control. (6) COPD (chronic obstructive pulmonary disease) Current Visit: No Status: Chronic Assessment and plan: Resume inhalers. Patient is not in exacerbation. Not hypoxic. Qualifiers: COPD type: unspecified COPD Qualified Code(s): J44.9 - Chronic obstructive pulmonary disease, unspecified (7) Tobacco abuse Current Visit: No Status: Chronic Assessment and plan: Nicotine patch (8) Psychosis Current Visit: Yes Status: Acute Assessment and plan: Psych to see.. Qualifiers: Psychosis type: schizophrenia Schizophrenia type: unspecified Qualified Code(s): F20.9 - Schizophrenia, unspecified (9) Schizophrenia Current Visit: No Status: Acute Assessment and plan: As above. Qualifiers: Schizophrenia type: disorganized schizophrenia Qualified Code(s): F20.1 - Disorganized schizophrenia (10) DVT prophylaxis Current Visit: No Status: Acute Assessment and plan: SCDs Code(s): [id number] - - Time Spent With Patient Total time spent is greater than 50% in coordination of care (as documented) at patient's floor/unit and/or counseling patient: - Subjective Interval history: Patient seen and examined. No acute events. Has a headache. s/p bronch 12/15 biopsy and BAL done. Seen by oncology. Otherwise he is admitted from the psych unit after he was found to have a lung mass with likely metastasis. Afebrile. - Constitutional Vitals: Temp Pulse Resp BP Pulse Ox 97.9 F 79 18 157/68 99 12/16/17 10:27 12/16/17 10:27 12/16/17 10:27 12/16/17 10:27 12/16/17 10:27 Exam: GEN: NAD. Does not stay on topic. tangential CVS: RRR. S1, S2, No m/r/g RESP: CTAB ABD: Soft, left upper quad tenderness. ND, +BS EXT: No edema. 2+ DP, No rashes NEURO: Nonfocal Internal Medicine: Result - Labs CBC & Chem 7: 12/16/17 06:31 12/16/17 06:31 Labs: Short CBC 12/16/17 Range/Units 06:31 WBC 8.7 (4.3-11.1) K/mcL Hgb 9.7 L (12.9-16.9) g/dL Hct 29.4 L (37.5-50.1) % Plt Count 131 L (140-400) K/mcL Neutrophils # 7.8 (1.6-8.9) K/mcL BMP 12/16/17 06:31 Sodium 142 Potassium 4.7 Chloride 103 Carbon Dioxide 33 H BUN 25 H Creatinine 1.25 Glucose 140 H Calcium 9.2 - Impressions Impressions Head CT 12/15/17 07:00 IMPRESSION: Stable right parieto-occipital brain metastasis, with associated vasogenic edema and slight midline shift. No intracranial hemorrhage. D/ / 12/15/2017 09:41:09 Son Trejo MD / Anali Valdez Interpreting Provider: Son Trejo MD Consult Discharge Plan - Plan Additional Instructions: Please also follow up with appointments set up by [address] Department[address] Provided at discharge Referrals: Aixa Gonzalez CNP [Advanced Practice Nurse] - 12/22/17 1:45 pm
[2017-12-16] MEDS: Budesonide/Formoterol 160/4.5 MDI IH SCH ×2 (10:40→22:12)
--- NOTE | 2017-12-16 13:57 | Neurology Progress Note ---
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 Currently he is on steroids suggested to decrease to 4 mg every 12 for 2 days and after that decrease to once a day and then he could be on oral tablets. Patient would need appointment with radiation oncology As far as long-term treatment options are concern will follow the recommendation from oncology as he would need radiation or surgery At the moment he did not have any focal motor symptoms from the metastases He is also on Keppra now as a prevention for any seizures as high risk for seizures due to the size and location of the metastasis clinically he did not have any seizures Subjective Principal diagnosis: Lung mass Interval history: Patient remained stable does not have any clinical seizures overall motor and behavior is also stable. Await for tissue diagnosis. Objective - Constitutional Vitals: Temp Pulse Resp BP Pulse Ox 97.9 F 79 18 157/68 98 12/16/17 10:27 12/16/17 10:27 12/16/17 10:40 12/16/17 10:27 12/16/17 10:40 General appearance: Present: A&O X 3 - Neurological Exam Sensorimotor examination: Present: intact Motor Examination: Present: full strength in all major muscle groups Motor examination - left side: 5/5: deltoids, biceps, triceps, wrist flexion, wrist extension, hip flexors, prizer hand, quadriceps, tibialis Anterior, toe extension (EHL), plantarflexion Sensation intact: Present: intact Reflex and gait examination: normal gait Mental Status Examination: Present: awake, alert, oriented to person, oriented to place, oriented to time, follows commands appropriately, answers questions appropriately, no aphasia, no aproxia Cranial nerve examination: Present: PERRL, EOMI, visual cabello intact, sensory to face intact, mastication intact, no facial asymmetry is present, no dysarthria, hearing is intact symmetrically, soft palate elevates bilaterally upon phonation, flexes SCM and trapezius muscles symmetrically with full power, tongue protrudes midline, no atrophy or facial fasiculations present Cerebellar examination: Present: no dysmetria, performs finger to nose and heel to juan symmetrically without ataxia, no gait ataxia, no truncal ataxia, no difficulty with rapid alternating movements Results - Laboratory Findings CBC and BMP: 12/16/17 06:31 04 06:31 Abnormal lab findings: Abnormal lab results RBC 3.00 M/mcL (4.19-5.50) L 12/16/17 06:31 Hgb 9.7 g/dL (12.9-16.9) L 12/16/17 06:31 Hct 29.4 % (37.5-50.1) L 12/16/17 06:31 Plt Count 131 K/mcL (140-400) L 12/16/17 06:31 Carbon Dioxide 33 mEq/L (23-29) H 12/16/17 06:31 BUN 25 mg/dL (6-20) H 12/16/17 06:31 Glucose 140 mg/dL (70-105) H 12/16/17 06:31 Calculated Osmolality 301 (280-300) H 12/16/17 06:31 Fluid Appearance Hazy (Clear) A 12/15/17 17:11 Consult Discharge Plan - Plan Additional Instructions: Please also follow up with appointments set up by [address] Department. Provided at discharge Referrals: Aixa Gonzalez, MUSIC MANAGER [Advanced Practice Nurse] - 12/22/17 1:45 pm
[2017-12-16] MEDS: traZODone 50 MG TABLET PO SCH (21:48)
[2017-12-16] MEDS: Ondansetron 4 MG/2 ML VIAL IVP PRN (21:49)
[2017-12-17 03:41] LABS: Basophils % 0.1 %; Hematocrit 28.9 % (37.5-50.1); Hemoglobin 9.6 g/dL (12.9-16.9); Immature Granulocytes % 1.2 % (0-4); Lymphocytes # 0.7 K/mcL (0.6-4.6); Lymphocytes % 8.3 %; Mean Corpuscular HGB Conc 33.2 g/dL (31.6-35.5); Mean Corpuscular Hemoglobin 32.5 pg (28.0-33.3); Mean Platelet Volume 10.3 fL (9.4-12.4); Monocytes # 0.4 K/mcL (0.0-1.3); Neutrophils # 6.9 K/mcL (1.6-8.9); Nucleated Red Blood Cells 0.2 /100 WBC (0); Platelet Count 143 K/mcL (140-400); Red Blood Count 2.95 M/mcL (4.19-5.50); Red Cell Distribution Width 13.4 % (11.5-14.5); Segmented Neutrophils % 85.4 %
[2017-12-17 04:02] LABS: BUN/Creatinine Ratio 18 (6-26); Blood Urea Nitrogen 22 mg/dL (6-20); Calcium 8.8 mg/dL (8.6-10.3); Carbon Dioxide 30 mEq/L (23-29); Chloride 103 mEq/L (98-107); Glucose 163 mg/dL (70-105); Magnesium 1.7 mg/dL (1.6-2.6); Osmolality,Calculated 293 (280-300); Potassium 4.5 mEq/L (3.5-5.1); Sodium 138 mEq/L (136-145); eGFR For African Americans > 60 (> 60); eGFR For Non-African Americans > 60 (> 60)
[2017-12-17] MEDS: 0.9 % Sodium Chloride 1,000 ML IVC SCH ×2 (05:27→15:16)
[2017-12-17] MEDS: levETIRAcetam 250 MG TABLET PO SCH ×2 (05:28→17:42)
[2017-12-17] MEDS ORDERED: Magnesium Oxide 400 MG TABLET PO ONE (09:01)
--- NOTE | 2017-12-17 09:05 | Internal Med Progress Note ---
Date of Encounter: 12/17/17 Time of Encounter: 09:03 - Assessment and plan (1) Acute metabolic encephalopathy Current Visit: Yes Status: Acute Assessment and plan: This is likely explained by his brain mets more so than his underlying psych issues although I do believe there is some psych component to his behavior in some situations such when he starts talking about mistrust issues and others trying to hurt him. We will monitor. (2) Metastatic disease Current Visit: No Status: Acute Assessment and plan: Patient has metastatic disease with the primary likely being the lung. CT abdomen and pelvis showed a spot on the liver. CT head showed brain lesion with vasogenic edema. MRI brain with large parieto-occipital brain mets with slight midline shift. Leptomeningeal carcinomatosis. oncology following. Radiation onc consult up to medical onc. s/p biopsy. f/u on path. still pending (3) Vasogenic brain edema Current Visit: Yes Status: Acute Assessment and plan: CT head showed a heterogeneous right occipital lobe mass measuring 2.5 x 4.5 x 4.2 cm most suspicious for intracranial metastatic disease. There was right frontotemporoparietal lobe vasogenic edema. Mass effect and partial effacement of the right lateral ventricle. No significant midline shift. Neurology is following. Keppra started 12/15. Continue Decadron IV 4 mg every 12 hours today and switch to daily tomorrow per neurology. (4) Hypertension Current Visit: No Status: Acute Assessment and plan: Continue previous antihypertensives. Qualifiers: Hypertension type: essential hypertension Qualified Code(s): I10 - Essential (primary) hypertension (5) Renal calculus Current Visit: No Status: Acute Assessment and plan: Patient has had a history of renal stones at some point required nephrostomy tubes. He is known to the urology service. We will continue to treat conservatively for now as those are small calculi. There is 1-2 mm claclulus in the proximal right ureter. There is also a 2-3 mm one on the left renal pole. Those should pass on their own. Continue with IV fluids. Antiemetics. Pain control. (6) COPD (chronic obstructive pulmonary disease) Current Visit: No Status: Chronic Assessment and plan: Resume inhalers. Patient is not in exacerbation. Not hypoxic. Qualifiers: COPD type: unspecified COPD Qualified Code(s): J44.9 - Chronic obstructive pulmonary disease, unspecified (7) Tobacco abuse Current Visit: No Status: Chronic Assessment and plan: Nicotine patch (8) Psychosis Current Visit: Yes Status: Acute Assessment and plan: Psych to see.. Qualifiers: Psychosis type: schizophrenia Schizophrenia type: unspecified Qualified Code(s): F20.9 - Schizophrenia, unspecified (9) Schizophrenia Current Visit: No Status: Acute Assessment and plan: As above. Qualifiers: Schizophrenia type: disorganized schizophrenia Qualified Code(s): F20.1 - Disorganized schizophrenia (10) DVT prophylaxis Current Visit: No Status: Acute Assessment and plan: SCDs Code(s): [id number] - - Time Spent With Patient Total time spent is greater than 50% in coordination of care (as documented) at patient's floor/unit and/or counseling patient: - Subjective Interval history: Patient seen and examined. No acute events. Family is under the assumption that he is to be transferred to [facility] for some reason. s/p bronch 12/15 biopsy and BAL done. Seen by oncology. Otherwise he is admitted from the psych unit after he was found to have a lung mass with likely metastasis. Afebrile. - Constitutional Vitals: Temp Pulse Resp BP Pulse Ox 98.0 F 65 16 147/75 98 12/17/17 06:47 12/17/17 06:47 12/17/17 06:47 12/17/17 06:47 12/17/17 06:47 Exam: GEN: NAD. Does not stay on topic. tangential CVS: RRR. S1, S2, No m/r/g RESP: CTAB ABD: Soft, left upper quad tenderness. ND, +BS EXT: No edema. 2+ DP, No rashes NEURO: Nonfocal Internal Medicine: Result - Labs CBC & Chem 7: 12/17/17 02:50 12/17/17 02:50 Labs: Short CBC 12/17/17 Range/Units 02:50 WBC 8.1 (4.3-11.1) K/mcL Hgb 9.6 L (12.9-16.9) g/dL Hct 28.9 L (37.5-50.1) % Plt Count 143 (140-400) K/mcL Neutrophils # 6.9 (1.6-8.9) K/mcL BMP 12/17/17 02:50 Sodium 138 Potassium 4.5 Chloride 103 Carbon Dioxide 30 H BUN 22 H Creatinine 1.21 Glucose 163 H Calcium 8.8 - Impressions Impressions Head MRI 12/13/17 16:16 IMPRESSION: Large parieto-occipital brain metastasis with slight midline shift. Leptomeningeal carcinomatosis. D/ / 12/14/2017 17:48:17 Faraz Milligan MD / bcarter Interpreting Provider: Faraz Milligan MD Consult Discharge Plan - Plan Additional Instructions: Please also follow up with appointments set up by [address] Department[address] Provided at discharge Referrals: Aixa Gonzalez CNP [Advanced Practice Nurse] - 12/22/17 1:45 pm
[2017-12-17] MEDS: Dexamethasone 4 MG/ML VIAL IVP SCH ×2 (09:06→21:05)
[2017-12-17] MEDS: risperiDONE 1 MG TABLET PO SCH ×2 (09:06→21:05)
[2017-12-17] MEDS: Nicotine 21 MG PATCH.TD24 TD SCH (09:06)
[2017-12-17] MEDS: Budesonide/Formoterol 160/4.5 MDI IH SCH ×2 (11:06→20:22)
--- NOTE | 2017-12-17 12:46 | Neurology Progress Note ---
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 he would likely need radiation for his large metastatic lesion in his brain. From neurology standpoint is a stable Subjective Principal diagnosis: Lung mass Interval history: Patient remained stable does not have any clinical seizures overall motor and behavior is also stable. Await for tissue diagnosis. no new symptoms or sign Objective - Constitutional Vitals: Temp Pulse Resp BP Pulse Ox 97.5 F L 73 16 157/74 97 12/17/17 10:41 12/17/17 10:41 12/17/17 11:08 12/17/17 10:41 12/17/17 11:08 General appearance: Present: A&O X 3 - Neurological Exam Sensorimotor examination: Present: intact Motor Examination: Present: full strength in all major muscle groups Motor examination - left side: 5/5: deltoids, biceps, triceps, wrist flexion, wrist extension, hip flexors, eyelet machine operator, quadriceps, tibialis Anterior, toe extension (EHL), plantarflexion Sensation intact: Present: intact Reflex and gait examination: normal gait Mental Status Examination: Present: awake, alert, oriented to person, oriented to place, oriented to time, follows commands appropriately, answers questions appropriately, no aphasia, no aproxia Cranial nerve examination: Present: PERRL, EOMI, visual cabello intact, sensory to face intact, mastication intact, no facial asymmetry is present, no dysarthria, hearing is intact symmetrically, soft palate elevates bilaterally upon phonation, flexes SCM and trapezius muscles symmetrically with full power, tongue protrudes midline, no atrophy or facial fasiculations present Cerebellar examination: Present: no dysmetria, performs finger to nose and heel to juan symmetrically without ataxia, no gait ataxia, no truncal ataxia, no difficulty with rapid alternating movements Results - Laboratory Findings CBC and BMP: 12/17/17 02:50 12/17/17 02:50 Abnormal lab findings: Abnormal lab results RBC 2.95 M/mcL (4.19-5.50) L 12/17/17 02:50 Hgb 9.6 g/dL (12.9-16.9) L 12/17/17 02:50 Hct 28.9 % (37.5-50.1) L 12/17/17 02:50 Nucleated RBCs/100 WBC 0.2 /100 WBC (0) H 12/17/17 02:50 Carbon Dioxide 30 mEq/L (23-29) H 12/17/17 02:50 BUN 22 mg/dL (6-20) H 12/17/17 02:50 Glucose 163 mg/dL (70-105) H 12/17/17 02:50 Fluid Appearance Hazy (Clear) A 12/15/17 17:11 Consult Discharge Plan - Plan Additional Instructions: Please also follow up with appointments set up by [address] Department[address] Provided at discharge Referrals: Aixa Gonzalez, MOUNIKA [Advanced Practice Nurse] - 12/22/17 1:45 pm
[2017-12-17] MEDS: Acetaminophen 325 MG TABLET PO PRN ×2 (15:35→21:04)
[2017-12-17] MEDS: Ondansetron 4 MG/2 ML VIAL IVP PRN (15:35)
--- NOTE | 2017-12-17 15:58 | Oncology Inp Progress Note ---
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 Continue Decadron and PPI. Patient does report control and slight improvement in headaches, disequilibrium/ dizziness and nausea. Denies visual changes, numbness or tingling. Neurology has started Keppra for seizure prevention. S/P Bronchoscopy on 12/15/2017. Discussed preliminary results received from pathology today with patient and patients son at bedside, pathology confirms malignancy, likely poorly differentiated adenocarcinoma, however, IHC stains are not completed as of yet. Discussed sending PDL1. Introduced the idea of palliative radiotherapy, which would help to control his symptoms and improve QOL. Patient again states he wishes to pursue radiation treatment and will plan to discuss risks and benefits further with radiation oncology. He is planned for consult/SIM appointment with Dr. Stewart in radiation oncology tomorrow at 9 am. He will also plan to establish with medical oncology. Further treatment options to be discussed following final pathology report. He will likely plan for palliative radiation to brain mass/leptomeningeal disease with further systemic treatment options to follow. Role for targeted immunotherapy to be determined with final pathology. Hospice is also be a viable option for this patient, further discussion following radiation as patient does wish to discuss radiation options further with Dr. Stewart, he is wishing to explore options for symptoms control at this time. Plan to discuss discharge planning and timeline with patients primary team and group social worker tomorrow. Oncology: Subj Interval history: Mr. Zamora is resting in bed with his son at bedside. He reports headache, dizziness and nausea, although symptoms have slightly improved over the past few days No new neurological symptoms. - Constitutional Vitals: Vital Signs Temp Pulse Resp BP Pulse Ox 12/17/17 15:31 97.9 F 89 16 157/72 92 12/17/17 11:08 16 97 12/17/17 10:41 97.5 F L 73 16 157/74 97 12/17/17 06:47 98.0 F 65 16 147/75 98 12/17/17 04:27 97.8 F 62 16 152/68 96 12/17/17 00:47 98.3 F 65 15 155/75 96 12/16/17 22:12 16 95 12/16/17 21:02 98.3 F 77 16 169/81 96 Intake and Output 12/16/17 12/17/17 12/17/17 23:59 07:59 15:59 Intake Total 1240 / 1240 1000 / 1000 1220 / 1220 Output Total 0 / 0 Balance 1240 / 1240 1000 / 1000 1220 / 1220 Intake: IV Fluids 1000 / 1000 1000 / 1000 1000 / 1000 0.9 % Sodium Chloride 1,000 ML 1000 / 1000 1000 / 1000 1000 / 1000 @ 100 mls/hr IVC .Q10H [facility] Rx#: [id number] Oral 240 / 240 220 / 220 Output: Urine 0 / 0 Other: Meal Dinner Lunch Percent of Meal Consumed 90% 100% # Voids 1 1 Weight 62.4 kg Patient Weight 12/17/17 23:59 Weight 62.4 kg General appearance: cooperative, no acute distress, no febrile Exam: chronically ill appearing - Head Head exam: Present: atraumatic - ENT ENT exam: Present: mucous membranes moist - Respiratory Respiratory exam: Present: decreased breath sounds. Absent: respiratory distress - Cardiovascular Cardiovascular exam: Present: RRR, +S1, +S2 - GI/Abdominal GI/Abdominal exam: Present: normal bowel sounds, soft, tenderness Additional comments: diffuse tenderness, no acute abdomen - Extremities Exam Extremities exam: Absent: calf tenderness - Neurological Exam Neurological exam: Present: alert, oriented X3, no focal deficits, strengths equal and symetr throughout - Psychiatric Psychiatric exam: Present: flat affect - Skin Skin exam: Present: dry, intact, normal color, warm Oncology: Obj Data - Labs CBC & Chem 7: 12/18/17 04:15 12/18/17 04:15 Labs: Laboratory Results - last 24 hr 12/17/17 12/17/17 02:50 02:50 WBC 8.1 RBC 2.95 L Hgb 9.6 L Hct 28.9 L MCV 98.0 MCH 32.5 MCHC 33.2 RDW 13.4 Plt Count 143 MPV 10.3 Immature Gran % 1.2 Seg Neutrophils % 85.4 Lymphocytes % 8.3 Monocytes % 5.0 Eosinophils % 0.0 Basophils % 0.1 Neutrophils # 6.9 Lymphocytes # 0.7 Monocytes # 0.4 Eosinophils # 0.0 Basophils # 0.0 Nucleated RBCs/100 WBC 0.2 H Sodium 138 Potassium 4.5 Chloride 103 Carbon Dioxide 30 H BUN 22 H Creatinine 1.21 Est GFR ( Amer) > 60 Est GFR (Non-Af Amer) > 60 BUN/Creatinine Ratio 18 Glucose 163 H Calculated Osmolality 293 Calcium 8.8 Magnesium 1.7 Consult Discharge Plan - Plan Additional Instructions: Please also follow up with appointments set up by [address] Department[address] Provided at discharge Referrals: Aixa Gonzalez, MOUNIKA [Advanced Practice Nurse] - 12/22/17 1:45 pm
[2017-12-17] MEDS: traZODone 50 MG TABLET PO SCH (21:05)
[2017-12-18] MEDS: 0.9 % Sodium Chloride 1,000 ML IVC SCH (04:10)
[2017-12-18 04:58] LABS: Basophils % 0.1 %; Hematocrit 29.1 % (37.5-50.1); Hemoglobin 9.5 g/dL (12.9-16.9); Immature Granulocytes % 0.6 % (0-4); Lymphocytes % 13.4 %; Mean Corpuscular HGB Conc 32.6 g/dL (31.6-35.5); Mean Corpuscular Hemoglobin 31.6 pg (28.0-33.3); Mean Corpuscular Volume 96.7 fL (83.0-100.0); Monocytes # 0.7 K/mcL (0.0-1.3); Monocytes % 9.2 %; Neutrophils # 5.5 K/mcL (1.6-8.9); Platelet Count 126 K/mcL (140-400); Red Blood Count 3.01 M/mcL (4.19-5.50); Red Cell Distribution Width 13.3 % (11.5-14.5); Segmented Neutrophils % 76.7 %
[2017-12-18 05:15] LABS: BUN/Creatinine Ratio 17 (6-26); Blood Urea Nitrogen 21 mg/dL (6-20); Calcium 8.7 mg/dL (8.6-10.3); Carbon Dioxide 33 mEq/L (23-29); Chloride 100 mEq/L (98-107); Glucose 133 mg/dL (70-105); Magnesium 1.8 mg/dL (1.6-2.6); Osmolality,Calculated 291 (280-300); Potassium 4.4 mEq/L (3.5-5.1); Sodium 138 mEq/L (136-145); eGFR For African Americans > 60 (> 60); eGFR For Non-African Americans > 60 (> 60)
[2017-12-18] MEDS: levETIRAcetam 250 MG TABLET PO SCH ×2 (06:11→17:01)
[2017-12-18] MEDS: risperiDONE 1 MG TABLET PO SCH ×2 (07:32→20:35)
[2017-12-18] MEDS: Acetaminophen 325 MG TABLET PO PRN ×2 (07:32→17:00)
[2017-12-18] MEDS: Nicotine 21 MG PATCH.TD24 TD SCH (07:32)
[2017-12-18] MEDS: Ondansetron 4 MG/2 ML VIAL IVP PRN ×2 (07:33→16:59)
[2017-12-18] MEDS: Dexamethasone 4 MG/ML VIAL IVP SCH (07:34)
[2017-12-18] MEDS: Budesonide/Formoterol 160/4.5 MDI IH SCH ×2 (08:02→20:16)
--- NOTE | 2017-12-18 08:40 | Neurology Progress Note ---
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 MRI brain reveals a large parieto-occipital brain metastasis with mass effect with large amount of vasogenic edema and slight midline shift along with leptomeningeal carcinomatosis. Patient wishes to pursue radiation treatment. At the moment suggested that we should decrease the IV steroids to the oral 4 mg PO BID for now rest of adjustment as per oncology recommendations with the GI prophylaxis And the need him on Keppra for seizure precautions, clinically he did not have any seizures Other treatment is as per oncology and radiation therapy Any concern or questions please call us . (2) 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 Current Visit: Yes Status: Acute Subjective Principal diagnosis: Lung mass Interval history: Patient remained stable does not have any clinical seizures overall motor and behavior is also stable. 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, quadriceps, tibialis Anterior, toe extension (EHL), plantarflexion Sensation intact: Present: intact Reflex and gait examination: normal gait Mental Status Examination: Present: awake, alert, oriented to person, oriented to place, oriented to time, follows commands appropriately, answers questions appropriately, no aphasia, no aproxia Cranial nerve examination: Present: PERRL, EOMI, visual cabello intact, sensory to face intact, mastication intact, no facial asymmetry is present, no dysarthria, hearing is intact symmetrically, soft palate elevates bilaterally upon phonation, flexes SCM and trapezius muscles symmetrically with full power, tongue protrudes midline, no atrophy or facial fasiculations present Cerebellar examination: Present: no dysmetria, performs finger to nose and heel to juan symmetrically without ataxia, no gait ataxia, no truncal ataxia, no difficulty with rapid alternating movements Results - Laboratory Findings CBC and BMP: 12/18/17 04:15 12/18/17 04:15 Abnormal lab findings: Abnormal lab results RBC 3.01 M/mcL (4.19-5.50) L 12/18/17 04:15 Hgb 9.5 g/dL (12.9-16.9) L 12/18/17 04:15 Hct 29.1 % (37.5-50.1) L 12/18/17 04:15 Plt Count 126 K/mcL (140-400) L 12/18/17 04:15 Nucleated RBCs/100 WBC 0.2 /100 WBC (0) H 12/17/17 02:50 Carbon Dioxide 33 mEq/L (23-29) H 12/18/17 04:15 BUN 21 mg/dL (6-20) H 12/18/17 04:15 Glucose 133 mg/dL (70-105) H 12/18/17 04:15 Fluid Appearance Hazy (Clear) A 12/15/17 17:11 Consult Discharge Plan - Plan Additional Instructions: Please also follow up with appointments set up by [address]. Provided at discharge Referrals: Aixa Gonzalez, MOUNIKA [Advanced Practice Nurse] - 12/22/17 1:45 pm
--- NOTE | 2017-12-18 12:52 | Event Note ---
Date of Encounter: 12/18/17 Time of Encounter: 12:51 Results of fine needle aspiration of right lower lobe lung mass positive for poorly differentiated non-small cell lung cancer. I will defer to oncology/ radiation oncology for further evaluation and treatment option. Pulmonary will sign off please call with questions
--- NOTE | 2017-12-18 15:16 | Rad Onc Consult Note ---
Radiation Oncology HPI - Oncology history Comments: 57-year-old male presents with Stage IV non-small cell lung cancer with dominant parietal brain metastases and leptomeningeal seeding onto the brainstem Date: 12/18/17 Primary Care Provider: PCP NONE History of present illness: Mr. Zamora has a history of schizophrenia and presents with metastatic lung cancer. Bronchoscopy with biopsy of lung lesion showed non-small cell carcinoma. Patient has a parietal brain metastasis seeding the cerebrospinal fluid causing nodularity and leptomeningeal spread on the brainstem and cranial nerves. Mr. Zamora has severe headaches that are mildly improved on his current steroid dose. He is a smoker. He denies a history of cancer and of radiotherapy. He reports his headaches started weeks ago and have been increasing. He and his son also note increased short term memory loss over the past few weeks. Past Medical History: asthma, COPD, hyperlipidemia, hypertension, kidney stones , malignancy Other History: headaches. schizo/paranoia to people, places Surgical History: appendectomy Hospitalization facilities, dates and reasons: or : [facility]: "mental health"; pt does not remember. "Pt states it was 1 or 2 times. [facility]: "I was smoken marijuana. . .the gregoryr want me to go. . .back in the 80's". [facility]. . . Pt unable to provide exact dates or reasons why hospitalized. Smoking Status: Current every day smoker Smokeless Tobacco Status: No Alcohol use: none, occasionally Drug use: marijuana Marital status: Job Title: Disabled Family History -Oncology: not known, heart disease, stroke, cancer, emotional problems Oncology - Medications Aspirin [Adult Low Dose Aspirin EC] 81 mg PO DAILY PRN 08/16/15 [History] Lisinopril-HCTZ 20-12.5 [Prinzide 20-12.5] 1 each PO DAILY #21 tablet 04/29/16 [ Rx] Albuterol Sulfate [Ventolin Hfa] 2 puff IH Q4-6H PRN 12/01/17 [History] Vitamin E 100 unit PO DAILY 12/01/17 [History] 3 Allergy/AdvReac Type Severity Reaction Status Date / Time acetaminophen [From Vicodin] Allergy Hallucinati Verified 07/18/15 12:34 ng hydrocodone [From Vicodin] Allergy Hallucinati Verified 07/18/15 12:34 ng Penicillins [PCN] Allergy childhood Verified 08/16/15 07:59 reaction "hot feeling inside" aspirin [ASA] AdvReac Abdominal Verified 04/29/16 00:18 Pain Review of Systems Provider Comments: A 12 point review of systems was performed. Pertinent positives and negatives are listed below and in the history of present illness. All other systems negative. General/Constitutional: Loss of Appetite, Fatigue GI/DIETARY: Nausea Neurological/Emotional: Headaches Physical Exam - Vitals Vital Signs: Last Vital Signs Temp 98.7 F 12/18/17 08:55 Pulse 81 12/18/17 08:55 Resp 16 12/18/17 08:55 BP 153/86 12/18/17 08:55 Pulse Ox 96 12/18/17 08:55 Height: 1.68 m Weight: 62.4 kg BSA (Oncology): 1.71 Pain Scale: 8 ECO - Consciousness/Orientation Level Of Consciousness: Awake, Alert, Appropriate Patient Orientation: Name, Date of Physical Exam: General: Alert and oriented, well appearing. Mental Status: Affect appropriate for circumstances HEENT: Sclerae anicteric. No mucositis or thrush. No other oral lesions or erythema. Skin: No rashes or petechiae. Lymph nodes: No cervical, supraclavicular, axillary, or inguinal adenopathy. Lungs: Clear to auscultation and percussion bilaterally. Cardiovascular: Regular rate and rhythm. No gallops, murmurs, or rubs. Abdomen: Soft, nontender; no organomegaly or masses palpable. Extremities: No edema. No calf swelling or tenderness. No joint deformity. Neurologic: Alert, cranial nerves II-XII intact; no focal weakness or sensory abnormalities. Oncology- Results - Labs Labs: Short CBC 12/18/17 Range/Units 04:15 WBC 7.2 (4.3-11.1) K/mcL Hgb 9.5 L (12.9-16.9) g/dL Hct 29.1 L (37.5-50.1) % Plt Count 126 L (140-400) K/mcL Neutrophils # 5.5 (1.6-8.9) K/mcL BMP 12/18/17 04:15 Sodium 138 Potassium 4.4 Chloride 100 Carbon Dioxide 33 H BUN 21 H Creatinine 1.21 Glucose 133 H Calcium 8.7 - Assessment Assessment: We will proceed with CT simulation today for a course of whole brain radiation therapy. In the setting of leptomeningeal spread, surgery and stereotactic radiotherapy do not have an upfront role in treatment. We will proceed with 3000 cGy in 10 fractions to the whole brain with extended margin to cover the posterior fossa and cranial nerve exits. It is imperative to continue steroid therapy until patient has had at least one week of radiotherapy to prevent patient symptoms and decline. Consent was obtained today. Prognosis and natural history of lung cancer were discussed with the patient and his son. Thank you for allowing me to participate in the care of Mr. Zamora. Sincerely, Sage Stewart MD Radiation Oncology [facility]
--- NOTE | 2017-12-18 15:21 | Rad Onc Dictation ---
Radiation Oncology Dictation Date of Service: 12/18/17 - Oncology History Comments: 57-year-old male presents with Stage IV non-small cell lung cancer with dominant parietal brain metastases and leptomeningeal seeding onto the brainstem - Procedure Note Comments: CT Simulation and Treatment Planning Note Mr. Zamora was brought into the CT Simulation suite and placed in the supine position. A thermoplastic head-only mask was created. 3D CT Simulation was required secondary to irregular shape of the target volume , close proximity to critical normal structures. Critical normal structures adjacent to the target volume include the following: facial structures and optic structures. [employer] software will be utilized to place an isocenter for treatment planning. This will be transferred to the lasers in the treatment room and will be used to shanti the patient for daily positioning. A two-field plan will be utilized to deliver 3000 cGy in 10 fractions of 300 cGy each. This patient will require weekly monitoring in the form of on-treatment visits to assess for progression through treatment, ability to tolerate further treatment, and to assess for treatment-related side effects in order to manage them. Consent has been obtained, and the patient is amenable to treatment. The risks and benefits of radiotherapy have been explained, and the patient is agreeable to proceed. Thank you again for allowing us to participate in the care of this pleasant patient. Sincerely, Sage Stewart MD Radiation Oncologist [place] [id number] [place] [id number]
--- NOTE | 2017-12-18 15:21 | Internal Med Progress Note ---
<Troy Diaz - Last Filed: 12/18/17 15:06> Date of Encounter: 12/18/17 Time of Encounter: 10:50 - Assessment and plan (1) Metastatic disease Current Visit: No Status: Acute Assessment and plan: Patient has metastatic disease with the primary likely being the lung. CT abdomen and pelvis showed a spot on the liver. CT head showed brain lesion with vasogenic edema. MRI brain with large parieto-occipital brain mets with slight midline shift. Leptomeningeal carcinomatosis. Cytopathology confirms non-small cell carcinoma with features consistent with poorly differentiated lung adenocarcinoma. oncology and neurology following. Continue with steroid taper and GI prophylaxis Continue Keppra for seizure precautions. Neurologically stable. Plan is likely palliative radiotherapy to control his symptoms and continue with radiation oncology. Hospice is also a possible option. Will continue to follow closely with neurology and oncology recommendations. (2) Schizophrenia Current Visit: No Status: Acute Assessment and plan: Plan for psych to follow after medically stable. Qualifiers: Schizophrenia type: disorganized schizophrenia Qualified Code(s): F20.1 - Disorganized schizophrenia (3) Psychosis Current Visit: Yes Status: Acute Assessment and plan: Plan for psych to follow after medically stable. Qualifiers: Psychosis type: schizophrenia Schizophrenia type: unspecified Qualified Code(s): F20.9 - Schizophrenia, unspecified (4) COPD (chronic obstructive pulmonary disease) Current Visit: No Status: Chronic Assessment and plan: Continue inhalers. Patient is not in exacerbation. Not hypoxic. Qualifiers: COPD type: unspecified COPD Qualified Code(s): J44.9 - Chronic obstructive pulmonary disease, unspecified (5) Tobacco abuse Current Visit: No Status: Chronic Assessment and plan: Nicotine patch (6) Hypertension Current Visit: No Status: Acute Assessment and plan: Continue previous antihypertensives. Qualifiers: Hypertension type: essential hypertension Qualified Code(s): I10 - Essential (primary) hypertension (7) Renal calculus Current Visit: No Status: Acute Assessment and plan: Patient has had a history of renal stones at some point required nephrostomy tubes. He is known to the urology service. Continue to treat conservatively for now as those are small calculi. There is 1-2 mm claclulus in the proximal right ureter. There is also a 2-3 mm one on the left renal pole. Those should pass on their own. Antiemetics. Pain control. Patient refused IVFs. His kidney function is doing well. Does not have dysuria. Ok to discontinue fluids for now. (8) Vasogenic brain edema Current Visit: Yes Status: Acute Assessment and plan: CT head showed a heterogeneous right occipital lobe mass measuring 2.5 x 4.5 x 4.2 cm most suspicious for intracranial metastatic disease. There was right frontotemporoparietal lobe vasogenic edema. Mass effect and partial effacement of the right lateral ventricle. No significant midline shift. Neurology is following. Continue Keppra. Tapering Decadron per neurology. (9) DVT prophylaxis Current Visit: No Status: Acute Assessment and plan: SCDs Code(s): [id number] - (10) Acute metabolic encephalopathy Current Visit: Yes Status: Acute Assessment and plan: Likely secondary to brain metastasis and history of psych disorders. His son states that he is back to baseline. AOx3. Continue to monitor. - Time Spent With Patient Total time spent is greater than 50% in coordination of care (as documented) at patient's floor/unit and/or counseling patient: - Subjective Interval history: Patient is a 57M with history of dementia, hypertension, psychosis, was admitted under psychiatrist service for psychosis/visual hallucinations and developed acute encephalopathy secondary to brain metastasis. CT has confirmed large mass in the superior segment of the RLL. Today, patient went for consult/ SIM appointment in radiation oncology. Plan is to likely palliative radiation to brain mass/leptomeningeal disease. I went to see him in the afternoon, patient is ambulating and speaking to himself. He is a poor historian. He has latex gloves on. Reports that "my world is ending, everyone's world is ending". He is AOx3, denies headaches, CP, SOB, nausea, diarrhea. Does report nausea and abdominal pain. Patient says oncology appointment was not helpful. He pulled off his IV lines today and refuses to put them back on. Does not have further acute complaints. - Constitutional Vitals: Temp Pulse Resp BP Pulse Ox 98.7 F 81 16 153/86 96 12/18/17 08:55 12/18/17 08:55 12/18/17 08:55 12/18/17 08:55 12/18/17 08:55 General appearance: Present: cooperative, A&O X 3, no acute distress - Head Head exam: Present: atraumatic, normocephalic - Eye Eye exam: Present: EOMI, conjuntiva pink, sclera anicteric - Neck Neck exam general surgery: Present: supple, trachea midline. Absent: lymphadenopathy - Respiratory Respiratory exam: Present: CTAB. Absent: accessory muscle use, rales, rhonchi, wheezes - Cardiovascular Cardiovascular exam: Present: RRR, +S1, +S2. Absent: diastolic murmur, gallop, rubs, systolic murmur - GI/Abdominal GI/Abdominal exam: Present: normal bowel sounds, soft, no peritoneal signs. Absent: distended, tenderness - Extremities Exam Extremities exam: Present: warm, radial pulses palpable and symmetrical. Absent : calf tenderness, cyanotic, pedal edema - Neurological Exam Neurological exam: Present: CN II-XII intact, oriented X3, no focal deficits. Absent: pronater drift, facial droop, speech deficit - Psychiatric Psychiatric exam: Present: flat affect Additional comments: Patient talks to himself. Cannot answer questions appropriately. - Skin Skin exam: Present: dry, intact Internal Medicine: Result - Labs CBC & Chem 7: 12/18/17 04:15 12/18/17 04:15 Labs: Short CBC 12/18/17 Range/Units 04:15 WBC 7.2 (4.3-11.1) K/mcL Hgb 9.5 L (12.9-16.9) g/dL Hct 29.1 L (37.5-50.1) % Plt Count 126 L (140-400) K/mcL Neutrophils # 5.5 (1.6-8.9) K/mcL BMP 12/18/17 04:15 Sodium 138 Potassium 4.4 Chloride 100 Carbon Dioxide 33 H BUN 21 H Creatinine 1.21 Glucose 133 H Calcium 8.7 Consult Discharge Plan - Plan Additional Instructions: Please also follow up with appointments set up by [place] [facility]. Provided at discharge Referrals: Aixa Gonzalez CNP [Advanced Practice Nurse] - 12/22/17 1:45 pm <Rene Lorenzo - Last Filed: 12/18/17 16:19> Date of Encounter: 12/18/17 - Assessment and plan (1) DVT prophylaxis Current Visit: No Status: Acute Code(s): [id number] - (2) Schizophrenia Current Visit: No Status: Acute Qualifiers: Schizophrenia type: disorganized schizophrenia Qualified Code(s): F20.1 - Disorganized schizophrenia (3) Psychosis Current Visit: Yes Status: Acute Qualifiers: Psychosis type: schizophrenia Schizophrenia type: unspecified Qualified Code(s): F20.9 - Schizophrenia, unspecified (4) COPD (chronic obstructive pulmonary disease) Current Visit: No Status: Chronic Qualifiers: COPD type: unspecified COPD Qualified Code(s): J44.9 - Chronic obstructive pulmonary disease, unspecified (5) Tobacco abuse Current Visit: No Status: Chronic (6) Metastatic disease Current Visit: No Status: Acute (7) Hypertension Current Visit: No Status: Acute Qualifiers: Hypertension type: essential hypertension Qualified Code(s): I10 - Essential (primary) hypertension (8) Renal calculus Current Visit: No Status: Acute (9) Vasogenic brain edema Current Visit: Yes Status: Acute (10) Acute metabolic encephalopathy Current Visit: Yes Status: Acute - Time Spent With Patient Total time spent is greater than 50% in coordination of care (as documented) at patient's floor/unit and/or counseling patient: - Constitutional Vitals: Temp Pulse Resp BP Pulse Ox 97.9 F 87 17 168/95 93 12/18/17 15:32 12/18/17 15:32 12/18/17 15:32 12/18/17 15:32 12/18/17 15:32 Internal Medicine: Result - Labs CBC & Chem 7: 12/18/17 04:15 12/18/17 04:15 Labs: Short CBC 12/18/17 Range/Units 04:15 WBC 7.2 (4.3-11.1) K/mcL Hgb 9.5 L (12.9-16.9) g/dL Hct 29.1 L (37.5-50.1) % Plt Count 126 L (140-400) K/mcL Neutrophils # 5.5 (1.6-8.9) K/mcL BMP 12/18/17 04:15 Sodium 138 Potassium 4.4 Chloride 100 Carbon Dioxide 33 H BUN 21 H Creatinine 1.21 Glucose 133 H Calcium 8.7 - Attending Attestation I performed an independent interview and examine this patient. I agree with the findings, assessment, and plan of Dr. Yanez, internal medicine landscape maintenance internship. His note reflects my input and our discussion. This is an unfortunate 57-year-old male with recently diagnosed metastatic cancer, lung. Patient on MRI has large parietal occipital brain metastases with mass effect and vasogenic edema as well as midline shift. Consistent with leptomeningeal carcinomatosis. Patient is on IV Decadron. He was seen by radiation oncology today with plans for radiation to begin soon. Fine-needle aspiration of the right lower lung mass came back positive for poorly differentiated non-small cell lung cancer. Patient is currently aware of his diagnosis. He is comfortable at present. Other issues are stable at present. Psychiatry input appreciated. We will await further input from oncology and radiation therapy. Continue current dose of steroids. All else as outlined above.
[2017-12-18] MEDS: traZODone 50 MG TABLET PO SCH (20:35)
[2017-12-19 04:16] LABS: Basophils % 0.1 %; Eosinophils % 0.1 %; Hematocrit 29.2 % (37.5-50.1); Hemoglobin 9.7 g/dL (12.9-16.9); Immature Granulocytes % 0.8 % (0-4); Lymphocytes # 1.6 K/mcL (0.6-4.6); Lymphocytes % 22.7 %; Mean Corpuscular HGB Conc 33.2 g/dL (31.6-35.5); Mean Corpuscular Hemoglobin 32.1 pg (28.0-33.3); Mean Corpuscular Volume 96.7 fL (83.0-100.0); Mean Platelet Volume 9.9 fL (9.4-12.4); Monocytes # 0.9 K/mcL (0.0-1.3); Monocytes % 12.9 %; Neutrophils # 4.6 K/mcL (1.6-8.9); Platelet Count 125 K/mcL (140-400); Red Blood Count 3.02 M/mcL (4.19-5.50); Red Cell Distribution Width 13.5 % (11.5-14.5); Segmented Neutrophils % 63.4 %
[2017-12-19 04:30] LABS: BUN/Creatinine Ratio 17 (6-26); Blood Urea Nitrogen 22 mg/dL (6-20); Calcium 8.8 mg/dL (8.6-10.3); Carbon Dioxide 35 mEq/L (23-29); Chloride 100 mEq/L (98-107); Glucose 165 mg/dL (70-105); Osmolality,Calculated 297 (280-300); Potassium 4.2 mEq/L (3.5-5.1); Sodium 140 mEq/L (136-145); eGFR For African Americans > 60 (> 60); eGFR For Non-African Americans 57 (> 60)
[2017-12-19] MEDS: levETIRAcetam 250 MG TABLET PO SCH ×2 (06:05→18:06)
[2017-12-19] MEDS: Budesonide/Formoterol 160/4.5 MDI IH SCH ×2 (07:55→19:57)
--- NOTE | 2017-12-19 08:30 | Internal Med Progress Note ---
<Rene Lorenzo - Last Filed: 12/19/17 15:13> Date of Encounter: 12/19/17 - Assessment and plan (1) DVT prophylaxis Current Visit: No Status: Acute Code(s): [id number] - (2) Schizophrenia Current Visit: No Status: Acute Qualifiers: Schizophrenia type: disorganized schizophrenia Qualified Code(s): F20.1 - Disorganized schizophrenia (3) Psychosis Current Visit: Yes Status: Acute Qualifiers: Psychosis type: schizophrenia Schizophrenia type: unspecified Qualified Code(s): F20.9 - Schizophrenia, unspecified (4) COPD (chronic obstructive pulmonary disease) Current Visit: No Status: Chronic Qualifiers: COPD type: unspecified COPD Qualified Code(s): J44.9 - Chronic obstructive pulmonary disease, unspecified (5) Tobacco abuse Current Visit: No Status: Chronic (6) Metastatic disease Current Visit: No Status: Acute (7) Hypertension Current Visit: No Status: Acute Qualifiers: Hypertension type: essential hypertension Qualified Code(s): I10 - Essential (primary) hypertension (8) Renal calculus Current Visit: No Status: Acute (9) Vasogenic brain edema Current Visit: Yes Status: Acute (10) Acute metabolic encephalopathy Current Visit: Yes Status: Acute - Time Spent With Patient Total time spent is greater than 50% in coordination of care (as documented) at patient's floor/unit and/or counseling patient: - Constitutional Vitals: Temp Pulse Resp BP Pulse Ox 98.2 F 71 17 170/79 100 12/19/17 11:39 12/19/17 11:39 12/19/17 11:39 12/19/17 11:39 12/19/17 11:39 Internal Medicine: Result - Labs CBC & Chem 7: 12/19/17 03:40 12/19/17 03:40 Labs: Short CBC 12/19/17 Range/Units 03:40 WBC 7.2 (4.3-11.1) K/mcL Hgb 9.7 L (12.9-16.9) g/dL Hct 29.2 L (37.5-50.1) % Plt Count 125 L (140-400) K/mcL Neutrophils # 4.6 (1.6-8.9) K/mcL BMP 12/19/17 03:40 Sodium 140 Potassium 4.2 Chloride 100 Carbon Dioxide 35 H BUN 22 H Creatinine 1.30 Glucose 165 H Calcium 8.8 Consult Discharge Plan - Plan Additional Instructions: Please also follow up with appointments set up by [address] Department. Provided at discharge Referrals: Aixa Gonzalez CNP [Advanced Practice Nurse] - 12/22/17 1:45 pm - Attending Attestation I performed an independent interview and exam of this patient. I agree with the findings, assessment, and plan of Dr. Isaacs, internal medicine resident. His note reflects our discussion and my input. Patient continues on high-dose steroids. Patient would like to go home and this was discussed with oncology. We will await PT and OT evaluations as he is quite weak and states he is not feeling well today. He is now on oxygen of 4 L per nasal cannula. This is a new finding. We will check a chest x-ray immediately. He did have a bronchoscopy 4 days ago. He does not have a leukocytosis or fever. Likely does have underlying COPD. But given this is a new change will pursue aggressively. If chest x-ray is negative may need to order a CT of the thorax to rule out PE. All else as outlined above. We will addend as necessary. 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 MRI brain with large parieto-occipital brain mets with slight midline shift. Leptomeningeal carcinomatosis. CT abdomen and pelvis showed a spot on the liver. Cytopathology confirms non-small cell carcinoma with features consistent with poorly differentiated lung adenocarcinoma. Oncology and neurology following. Continue with steroids and GI prophylaxis Continue Keppra for seizure precautions. Neurologically stable. Plan is likely palliative radiotherapy to control his symptoms and continue with radiation oncology. Hospice is also a possible option. Will continue to follow closely with neurology and oncology recommendations. 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 There was right frontotemporoparietal lobe vasogenic edema. Mass effect and partial effacement of the right lateral ventricle. No significant midline shift. Neurology is following. Continue Keppra. Tapering Decadron per neurology/ oncology. (4) COPD (chronic obstructive pulmonary disease) Current Visit: No Status: Chronic Assessment and plan: Underlying COPD. Patient is not in exacerbation. Bronchoscopy on 12/16/17 Results: RLL FNA: Non-small cell carcinoma with features consistent with a poorly differentiated lung adenocarcinoma RLL BAL: Negative for malignancy. Right hilum FNA: Negative for malignancy. No leukocytosis or fever. CXR ordered due to new supplemental oxygen dependence, 4 L per nasal cannula. If chest x-ray is negative may need to order a CT of the thorax to rule out PE. Continue inhalers. Qualifiers: COPD type: unspecified COPD Qualified Code(s): J44.9 - Chronic obstructive pulmonary disease, unspecified (5) Tobacco abuse Current Visit: No Status: Chronic Assessment and plan: Nicotine patch. Tobacco cessation (6) Acute metabolic encephalopathy Current Visit: Yes Status: Acute Assessment and plan: Likely secondary to brain metastasis and history of psych disorders. His son states that he is back to baseline. AOx3. Continue to monitor. (7) Schizophrenia Current Visit: No Status: Acute Assessment and plan: Outpatient management. Qualifiers: Schizophrenia type: disorganized schizophrenia Qualified Code(s): F20.1 - Disorganized schizophrenia (8) Hypertension Current Visit: No Status: Acute Assessment and plan: Continue antihypertensive meds. Qualifiers: Hypertension type: essential hypertension Qualified Code(s): I10 - Essential (primary) hypertension (9) Renal calculus Current Visit: No Status: Acute Assessment and plan: CT revealed 1-2 mm calculus in the proximal right ureter and 2-3 mm calculus on the left renal pole. Patient has had a history of renal stones requiring nephrostomy tubes and well known to the urology service. Continue to treat conservatively, stones should pass on their own. Continue antiemetics and pain control. (10) DVT prophylaxis Current Visit: No Status: Acute Assessment and plan: SCDs. Avoid Heparin due to brain mets Code(s): [id number] - - Time Spent With Patient Total time spent is greater than 50% in coordination of care (as documented) at patient's floor/unit and/or counseling patient: - Subjective Interval history: Patient seen and examined. He reports nausea this AM and appears anxious. Patient is requiring 4.5L supplemental O2. CXR pending. Patient remains on high dose steroids. - Constitutional Vitals: Temp Pulse Resp BP Pulse Ox 98.4 F 74 18 142/7 97 12/19/17 08:08 12/19/17 08:08 12/19/17 08:08 12/19/17 08:08 12/19/17 08:08 General appearance: Present: cooperative, A&O X 3, no acute distress - Head Head exam: Present: atraumatic, normocephalic - Eye Eye exam: Present: PERRL, conjuntiva pink, sclera anicteric Pupils: Present: PERRL - ENT ENT exam: Present: mucous membranes moist, normal oropharynx - Neck Neck exam general surgery: Present: supple, trachea midline. Absent: lymphadenopathy - Respiratory Respiratory exam: Present: CTAB. Absent: accessory muscle use, rales, respiratory distress, rhonchi, wheezes Additional comments: 4.5L O2 via NC - Cardiovascular Cardiovascular exam: Present: RRR, +S1, +S2. Absent: diastolic murmur, gallop, rubs, systolic murmur - GI/Abdominal GI/Abdominal exam: Present: normal bowel sounds, soft, no peritoneal signs. Absent: distended, guarding, tenderness - Extremities Exam Extremities exam: Present: warm, radial pulses palpable and symmetrical. Absent : calf tenderness, cyanotic, pedal edema - Back Exam Back exam: Present: normal inspection. Absent: tenderness - Neurological Exam Neurological exam: Present: alert, CN II-XII intact, oriented X3, no focal deficits. Absent: altered, pronater drift, facial droop, speech deficit - Psychiatric Psychiatric exam: Present: anxious, normal affect - Skin Skin exam: Present: dry, intact, normal color, warm Internal Medicine: Result - Labs CBC & Chem 7: 12/19/17 03:40 12/19/17 03:40 Labs: Short CBC 12/19/17 Range/Units 03:40 WBC 7.2 (4.3-11.1) K/mcL Hgb 9.7 L (12.9-16.9) g/dL Hct 29.2 L (37.5-50.1) % Plt Count 125 L (140-400) K/mcL Neutrophils # 4.6 (1.6-8.9) K/mcL BMP 12/19/17 03:40 Sodium 140 Potassium 4.2 Chloride 100 Carbon Dioxide 35 H BUN 22 H Creatinine 1.30 Glucose 165 H Calcium 8.8 - Pulse Oximetry Interpretation Digit-Finger Pulse Oximetry Readin (On 4.5 L O2 via NC)
[2017-12-19] MEDS: risperiDONE 1 MG TABLET PO SCH ×2 (10:12→22:00)
[2017-12-19] MEDS: Nicotine 21 MG PATCH.TD24 TD SCH (10:12)
[2017-12-19] MEDS: Dexamethasone 4 MG/ML VIAL IVP SCH (10:13)
[2017-12-19] MEDS: Acetaminophen 325 MG TABLET PO PRN ×2 (10:28→18:05)
[2017-12-19] MEDS: Ondansetron 4 MG/2 ML VIAL IVP PRN (15:14)
[2017-12-19] MEDS ORDERED: Isovue-370 500 ML INFUS..BTL IV ONE (17:42)
[2017-12-19] MEDS: traZODone 50 MG TABLET PO SCH (22:00)
[2017-12-20 04:48] LABS: Hematocrit 28.3 % (37.5-50.1); Hemoglobin 9.5 g/dL (12.9-16.9); Mean Corpuscular HGB Conc 33.6 g/dL (31.6-35.5); Mean Corpuscular Hemoglobin 32.4 pg (28.0-33.3); Mean Corpuscular Volume 96.6 fL (83.0-100.0); Mean Platelet Volume 9.8 fL (9.4-12.4); Platelet Count 108 K/mcL (140-400); Red Blood Count 2.93 M/mcL (4.19-5.50); Red Cell Distribution Width 13.7 % (11.5-14.5)
[2017-12-20 05:16] LABS: BUN/Creatinine Ratio 20 (6-26); Blood Urea Nitrogen 24 mg/dL (6-20); Calcium 8.9 mg/dL (8.6-10.3); Carbon Dioxide 40 mEq/L (23-29); Chloride 95 mEq/L (98-107); Glucose 107 mg/dL (70-105); Osmolality,Calculated 287 (280-300); Potassium 4.3 mEq/L (3.5-5.1); Sodium 136 mEq/L (136-145); eGFR For African Americans > 60 (> 60); eGFR For Non-African Americans > 60 (> 60)
[2017-12-20] MEDS: levETIRAcetam 250 MG TABLET PO SCH ×2 (06:11→16:33)
[2017-12-20] MEDS ORDERED: Furosemide 40 MG/4 ML VIAL IVP ONE (07:27)
[2017-12-20] MEDS: Budesonide/Formoterol 160/4.5 MDI IH SCH ×2 (07:35→21:21)
[2017-12-20] MEDS: Acetaminophen 325 MG TABLET PO PRN ×2 (08:02→16:32)
[2017-12-20] MEDS: risperiDONE 1 MG TABLET PO SCH ×2 (08:03→22:05)
[2017-12-20] MEDS: Dexamethasone 4 MG/ML VIAL IVP SCH (08:03)
[2017-12-20] MEDS: *HR* Promethazine 25 MG/ML VIAL IVP PRN (08:03)
[2017-12-20] MEDS: Nicotine 21 MG PATCH.TD24 TD SCH (08:05)
--- NOTE | 2017-12-20 08:11 | Internal Med Progress Note ---
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 MRI brain with large parieto-occipital brain mets with slight midline shift. Leptomeningeal carcinomatosis. CT abdomen and pelvis showed a spot on the liver. Cytopathology confirms non-small cell carcinoma with features consistent with poorly differentiated lung adenocarcinoma. CTA revealed 40 x 63 mm masslike density within the superior segment of the right lower lobe. Oncology and neurology following. Continue with steroids and GI prophylaxis Tylenol and Morphine SL prn pain Continue Keppra for seizure precautions. Neurologically stable. Plan is likely palliative radiotherapy to control his symptoms and continue with radiation oncology. Hospice is also a possible option. Will continue to follow closely with neurology and oncology recommendations. 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 There was right frontotemporoparietal lobe vasogenic edema. Mass effect and partial effacement of the right lateral ventricle. No significant midline shift. Neurology is following. Continue Keppra. Tapering Decadron per neurology/ oncology. (4) COPD (chronic obstructive pulmonary disease) Current Visit: No Status: Chronic Assessment and plan: Underlying COPD. Patient is not in exacerbation. Continue inhalers. Qualifiers: COPD type: unspecified COPD Qualified Code(s): J44.9 - Chronic obstructive pulmonary disease, unspecified (5) Tobacco abuse Current Visit: No Status: Chronic Assessment and plan: Nicotine patch. Tobacco cessation (6) Acute metabolic encephalopathy Current Visit: Yes Status: Acute Assessment and plan: Resolving. Likely secondary to brain metastasis and history of psych disorders. His son states that he is back to baseline. AOx3. Continue to monitor. (7) Schizophrenia Current Visit: No Status: Acute Assessment and plan: Outpatient management. Qualifiers: Schizophrenia type: disorganized schizophrenia Qualified Code(s): F20.1 - Disorganized schizophrenia (8) Hypertension Current Visit: No Status: Acute Assessment and plan: Continue antihypertensive meds. Qualifiers: Hypertension type: essential hypertension Qualified Code(s): I10 - Essential (primary) hypertension (9) Renal calculus Current Visit: No Status: Acute Assessment and plan: CT revealed 1-2 mm calculus in the proximal right ureter and 2-3 mm calculus on the left renal pole. Patient has had a history of renal stones requiring nephrostomy tubes and well known to the urology service. Continue to treat conservatively, stones should pass on their own. Continue antiemetics and pain control. (10) DVT prophylaxis Current Visit: No Status: Acute Assessment and plan: SCDs. Avoid Heparin due to brain mets Code(s): [id number] - (11) Pleural effusion due to another disorder Current Visit: Yes Status: Acute Assessment and plan: Bronchoscopy on 12/16/17 Results: RLL FNA: Non-small cell carcinoma with features consistent with a poorly differentiated lung adenocarcinoma RLL BAL: Negative for malignancy. Right hilum FNA: Negative for malignancy. CTA reveals no PE and small bilateral pleural effusions with bibasilar atelectasis, new since previous chest CT. Lasix 40mg IV x1 given - Time Spent With Patient Total time spent is greater than 50% in coordination of care (as documented) at patient's floor/unit and/or counseling patient: - Subjective Interval history: Patient seen and examined. He reports pain not controlled by Tylenol. Patient is requiring 2L supplemental O2 and CTA was negative for PE. Patient remains on high dose steroids. - Constitutional Vitals: Temp Pulse Resp BP Pulse Ox 98.6 F 67 16 117/68 94 12/20/17 07:23 12/20/17 07:23 12/20/17 07:23 12/20/17 07:23 12/20/17 07:23 General appearance: Present: cooperative, A&O X 3, no acute distress, answers questions appropriately - Head Head exam: Present: atraumatic, normocephalic - Eye Eye exam: Present: PERRL, conjuntiva pink, sclera anicteric Pupils: Present: PERRL - ENT ENT exam: Present: mucous membranes moist, normal oropharynx - Neck Neck exam general surgery: Present: supple, trachea midline. Absent: lymphadenopathy - Respiratory Respiratory exam: Present: decreased breath sounds, rales (mild). Absent: accessory muscle use, rhonchi, wheezes - Cardiovascular Cardiovascular exam: Present: RRR, +S1, +S2. Absent: diastolic murmur, gallop, rubs, systolic murmur - GI/Abdominal GI/Abdominal exam: Present: normal bowel sounds, soft, no peritoneal signs. Absent: distended, tenderness - Extremities Exam Extremities exam: Present: warm, radial pulses palpable and symmetrical. Absent : calf tenderness, cyanotic, pedal edema - Back Exam Back exam: Present: normal inspection, tenderness (mild) - Neurological Exam Neurological exam: Present: CN II-XII intact, oriented X3, no focal deficits. Absent: pronater drift, facial droop, speech deficit - Psychiatric Psychiatric exam: Present: normal affect, normal mood - Skin Skin exam: Present: dry, intact, normal color, warm Internal Medicine: Result - Labs CBC & Chem 7: 12/20/17 04:22 12/20/17 04:22 Labs: Short CBC 12/20/17 Range/Units 04:22 WBC 7.1 (4.3-11.1) K/mcL Hgb 9.5 L (12.9-16.9) g/dL Hct 28.3 L (37.5-50.1) % Plt Count 108 L (140-400) K/mcL BMP 12/20/17 04:22 Sodium 136 Potassium 4.3 Chloride 95 L Carbon Dioxide 40 H* BUN 24 H Creatinine 1.22 Glucose 107 H Calcium 8.9 - Pulse Oximetry Interpretation Digit-Finger Pulse Oximetry Readin (2L) - Impressions Impressions Chest X-Ray 12/19/17 17:03 IMPRESSION: 1. Grossly unchanged large mass in the superior segment of the right lower lobe. 2. Trace bilateral pleural effusions. D/ / Rian Mitchell MD / Rian Mitchell MD Interpreting Provider: Rian Mitchell MD Chest CTA 12/19/17 17:42 IMPRESSION: 1. No evidence of acute pulmonary embolism. 2. Approximately 40 x 63 mm masslike density within the superior segment of the right lower lobe. Findings are concerning for pulmonary neoplasm. Pneumonia is less likely. 3. Small bilateral pleural effusions with bibasilar atelectasis, new since previous chest CT. 4. Enlarged subcarinal lymph nodes. 5. Periportal edema versus intrahepatic biliary ductal dilatation is partially imaged. 6. Nonspecific gastric wall thickening in setting of underdistention. D/ / 12/19/2017 20:48:55 Jim Roman MD / Anali Valdez Interpreting Provider: Jim Roman MD Consult Discharge Plan - Plan Additional Instructions: Please also follow up with appointments set up by [address] Department. Provided at discharge Referrals: Aixa Gonzalez CNP [Advanced Practice Nurse] - 12/22/17 1:45 pm <Brian Pan - Last Filed: 12/20/17 12:53> Date of Encounter: 12/20/17 - Assessment and plan (1) DVT prophylaxis Current Visit: No Status: Acute Code(s): [id number] - (2) Schizophrenia Current Visit: No Status: Acute Qualifiers: Schizophrenia type: disorganized schizophrenia Qualified Code(s): F20.1 - Disorganized schizophrenia (3) COPD (chronic obstructive pulmonary disease) Current Visit: No Status: Chronic Qualifiers: COPD type: unspecified COPD Qualified Code(s): J44.9 - Chronic obstructive pulmonary disease, unspecified (4) Tobacco abuse Current Visit: No Status: Chronic (5) Hypertension Current Visit: No Status: Acute Qualifiers: Hypertension type: essential hypertension Qualified Code(s): I10 - Essential (primary) hypertension (6) Renal calculus Current Visit: No Status: Acute (7) Vasogenic brain edema Current Visit: Yes Status: Acute (8) 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 Current Visit: Yes Status: Acute (9) 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 Current Visit: Yes Status: Acute (10) Acute metabolic encephalopathy Current Visit: Yes Status: Acute (11) Pleural effusion due to another disorder Current Visit: Yes Status: Acute - Time Spent With Patient Total time spent is greater than 50% in coordination of care (as documented) at patient's floor/unit and/or counseling patient: - Constitutional Vitals: Temp Pulse Resp BP Pulse Ox 98.2 F 82 18 138/77 95 12/20/17 11:05 12/20/17 11:05 12/20/17 11:05 12/20/17 11:05 12/20/17 11:05 Internal Medicine: Result - Labs CBC & Chem 7: 12/20/17 04:22 12/20/17 04:22 Labs: Short CBC 12/20/17 Range/Units 04:22 WBC 7.1 (4.3-11.1) K/mcL Hgb 9.5 L (12.9-16.9) g/dL Hct 28.3 L (37.5-50.1) % Plt Count 108 L (140-400) K/mcL BMP 12/20/17 04:22 Sodium 136 Potassium 4.3 Chloride 95 L Carbon Dioxide 40 H* BUN 24 H Creatinine 1.22 Glucose 107 H Calcium 8.9 - Impressions Impressions Chest X-Ray 12/19/17 17:03 IMPRESSION: 1. Grossly unchanged large mass in the superior segment of the right lower lobe. 2. Trace bilateral pleural effusions. D/ / Rian Mitchell MD / Rian Mitchell MD Interpreting Provider: Rian Mitchell MD Chest CTA 12/19/17 17:42 IMPRESSION: 1. No evidence of acute pulmonary embolism. 2. Approximately 40 x 63 mm masslike density within the superior segment of the right lower lobe. Findings are concerning for pulmonary neoplasm. Pneumonia is less likely. 3. Small bilateral pleural effusions with bibasilar atelectasis, new since previous chest CT. 4. Enlarged subcarinal lymph nodes. 5. Periportal edema versus intrahepatic biliary ductal dilatation is partially imaged. 6. Nonspecific gastric wall thickening in setting of underdistention. D/ / 12/19/2017 20:48:55 Jim Roman MD / Anali Valdez Interpreting Provider: Jim Roman MD - Attending Attestation Metastatic adenocarcinoma of the lung The patient cannot focus of the moment deciding on whether to become a DNR code or to persist being a Full code. Very poor prognosis in the short run. Continue Decadron. Palliative consult I examined this patient and my medical decision-making was reviewed with the Resident Physician. I agree with the documented findings, disposition and treatment plan as described except to the extent set forth below.
[2017-12-20] MEDS: MORPHINE SUL Oral CONC 10 MG/0.5 ML ORAL.SYG SL PRN ×2 (12:13→22:05)
[2017-12-20] MEDS: Ondansetron 4 MG/2 ML VIAL IVP PRN (13:40)
[2017-12-20] MEDS: Benzonatate 100 MG CAPSULE PO PRN (16:33)
[2017-12-20] MEDS: traZODone 50 MG TABLET PO SCH (22:05)
[2017-12-21] MEDS: levETIRAcetam 250 MG TABLET PO SCH ×2 (05:07→16:37)
[2017-12-21 05:39] LABS: BUN/Creatinine Ratio 24 (6-26); Blood Urea Nitrogen 28 mg/dL (6-20); Calcium 8.9 mg/dL (8.6-10.3); Carbon Dioxide 40 mEq/L (23-29); Chloride 92 mEq/L (98-107); Glucose 111 mg/dL (70-105); Osmolality,Calculated 290 (280-300); Potassium 4.4 mEq/L (3.5-5.1); Sodium 137 mEq/L (136-145); eGFR For African Americans > 60 (> 60); eGFR For Non-African Americans > 60 (> 60)
[2017-12-21] MEDS: Budesonide/Formoterol 160/4.5 MDI IH SCH ×2 (07:52→19:28)
--- NOTE | 2017-12-21 08:47 | Internal Med Progress Note ---
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 MRI brain with large parieto-occipital brain mets with slight midline shift. Leptomeningeal carcinomatosis. CT abdomen and pelvis showed a spot on the liver. Cytopathology confirms non-small cell carcinoma with features consistent with poorly differentiated lung adenocarcinoma. CTA revealed 40 x 63 mm masslike density within the superior segment of the right lower lobe. Oncology and neurology following. Continue with steroids and GI prophylaxis Tylenol and Morphine SL prn pain Continue Keppra for seizure precautions. Neurologically stable. Plan is likely palliative radiotherapy to control his symptoms and continue with radiation oncology. Hospice is also a possible option. Will continue to follow closely with neurology and oncology recommendations. 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 There was right frontotemporoparietal lobe vasogenic edema. Mass effect and partial effacement of the right lateral ventricle. No significant midline shift. Neurology is following. Continue Keppra. Tapering Decadron per neurology/ oncology. (4) COPD (chronic obstructive pulmonary disease) Current Visit: No Status: Chronic Assessment and plan: Underlying COPD. Patient is not in exacerbation. Continue inhalers. Qualifiers: COPD type: unspecified COPD Qualified Code(s): J44.9 - Chronic obstructive pulmonary disease, unspecified (5) Tobacco abuse Current Visit: No Status: Chronic Assessment and plan: Nicotine patch. Tobacco cessation (6) Acute metabolic encephalopathy Current Visit: Yes Status: Acute Assessment and plan: Resolving. Likely secondary to brain metastasis and history of psych disorders. His son states that he is back to baseline. AOx3. Continue to monitor. (7) Schizophrenia Current Visit: No Status: Acute Assessment and plan: Outpatient management. Qualifiers: Schizophrenia type: disorganized schizophrenia Qualified Code(s): F20.1 - Disorganized schizophrenia (8) Hypertension Current Visit: No Status: Acute Assessment and plan: Continue antihypertensive meds. Qualifiers: Hypertension type: essential hypertension Qualified Code(s): I10 - Essential (primary) hypertension (9) Renal calculus Current Visit: No Status: Acute Assessment and plan: CT revealed 1-2 mm calculus in the proximal right ureter and 2-3 mm calculus on the left renal pole. Patient has had a history of renal stones requiring nephrostomy tubes and well known to the urology service. Continue to treat conservatively, stones should pass on their own. Continue antiemetics and pain control. (10) DVT prophylaxis Current Visit: No Status: Acute Assessment and plan: SCDs. Avoid Heparin due to brain mets Code(s): [id number] - (11) Pleural effusion due to another disorder Current Visit: Yes Status: Acute Assessment and plan: Bronchoscopy on 12/16/17 Results: RLL FNA: Non-small cell carcinoma with features consistent with a poorly differentiated lung adenocarcinoma RLL BAL: Negative for malignancy. Right hilum FNA: Negative for malignancy. CTA reveals no PE and small bilateral pleural effusions with bibasilar atelectasis, new since previous chest CT. Lasix 40mg IV x1 given 12/20/17 Patient is 10L positive during hospital stay No respiratory distress. Will start Lasix 40mg PO daily - Time Spent With Patient Total time spent is greater than 50% in coordination of care (as documented) at patient's floor/unit and/or counseling patient: - Subjective Interval history: Patient seen and examined. He reports pain level is better controlled today. Patient is requiring 2.5L supplemental O2 and remains on high dose steroids. Palliative care was consulted today. - Constitutional Vitals: Temp Pulse Resp BP Pulse Ox 98.1 F 66 16 166/82 96 12/21/17 07:31 12/21/17 07:31 12/21/17 07:52 12/21/17 07:52 12/21/17 07:52 General appearance: Present: cooperative, A&O X 3, no acute distress, answers questions appropriately - Head Head exam: Present: atraumatic, normocephalic - Eye Eye exam: Present: PERRL, conjuntiva pink, sclera anicteric Pupils: Present: PERRL - ENT ENT exam: Present: mucous membranes moist, normal oropharynx - Neck Neck exam general surgery: Present: supple, trachea midline. Absent: lymphadenopathy - Respiratory Respiratory exam: Present: decreased breath sounds. Absent: accessory muscle use, rales, rhonchi, wheezes Additional comments: 2.5 L O2 vai NC - Cardiovascular Cardiovascular exam: Present: RRR, +S1, +S2. Absent: diastolic murmur, gallop, rubs, systolic murmur - GI/Abdominal GI/Abdominal exam: Present: normal bowel sounds, soft, no peritoneal signs. Absent: distended, tenderness - Extremities Exam Extremities exam: Present: warm, radial pulses palpable and symmetrical. Absent : calf tenderness, cyanotic, pedal edema - Back Exam Back exam: Present: normal inspection, tenderness - Neurological Exam Neurological exam: Present: CN II-XII intact, oriented X3, no focal deficits. Absent: pronater drift, facial droop, speech deficit - Psychiatric Psychiatric exam: Present: flat affect, normal mood - Skin Skin exam: Present: dry, intact, normal color, warm Internal Medicine: Result - Labs CBC & Chem 7: 12/20/17 04:22 12/21/17 04:14 Labs: BMP 12/21/17 04:14 Sodium 137 Potassium 4.4 Chloride 92 L Carbon Dioxide 40 H* BUN 28 H Creatinine 1.18 Glucose 111 H Calcium 8.9 - Pulse Oximetry Interpretation Digit-Finger Pulse Oximetry Readin (2.5L O2 via NC) Consult Discharge Plan - Plan Additional Instructions: Please also follow up with appointments set up by [address] Department[address] Provided at discharge Referrals: Aixa Gonzalez CNP [Advanced Practice Nurse] - 12/22/17 1:45 pm <Brian Pan H - Last Filed: 12/21/17 09:43> Date of Encounter: 12/21/17 - Assessment and plan (1) DVT prophylaxis Current Visit: No Status: Acute Code(s): [id number] - (2) Schizophrenia Current Visit: No Status: Acute Qualifiers: Schizophrenia type: disorganized schizophrenia Qualified Code(s): F20.1 - Disorganized schizophrenia (3) COPD (chronic obstructive pulmonary disease) Current Visit: No Status: Chronic Qualifiers: COPD type: unspecified COPD Qualified Code(s): J44.9 - Chronic obstructive pulmonary disease, unspecified (4) Tobacco abuse Current Visit: No Status: Chronic (5) Hypertension Current Visit: No Status: Acute Qualifiers: Hypertension type: essential hypertension Qualified Code(s): I10 - Essential (primary) hypertension (6) Renal calculus Current Visit: No Status: Acute (7) Vasogenic brain edema Current Visit: Yes Status: Acute (8) 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 Current Visit: Yes Status: Acute (9) 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 Current Visit: Yes Status: Acute (10) Acute metabolic encephalopathy Current Visit: Yes Status: Acute (11) Pleural effusion due to another disorder Current Visit: Yes Status: Acute - Time Spent With Patient Total time spent is greater than 50% in coordination of care (as documented) at patient's floor/unit and/or counseling patient: - Constitutional Vitals: Temp Pulse Resp BP Pulse Ox 98.1 F 66 16 166/82 96 12/21/17 07:31 12/21/17 07:31 12/21/17 07:52 12/21/17 07:52 12/21/17 07:52 Internal Medicine: Result - Labs CBC & Chem 7: 12/20/17 04:22 12/21/17 04:14 Labs: BMP 12/21/17 04:14 Sodium 137 Potassium 4.4 Chloride 92 L Carbon Dioxide 40 H* BUN 28 H Creatinine 1.18 Glucose 111 H Calcium 8.9 - Attending Attestation Metastatic adenocarcinoma of the lung The patient cannot focus of the moment deciding on whether to become a DNR code or to persist being a Full code. Very poor prognosis in the short run. Continue Decadron. Palliative consult I examined this patient and my medical decision-making was reviewed with the Resident Physician. I agree with the documented findings, disposition and treatment plan as described except to the extent set forth below.
[2017-12-21] MEDS: Dexamethasone 4 MG/ML VIAL IVP SCH (08:53)
[2017-12-21] MEDS: Nicotine 21 MG PATCH.TD24 TD SCH (08:53)
[2017-12-21] MEDS: risperiDONE 1 MG TABLET PO SCH ×2 (08:53→21:43)
[2017-12-21] MEDS: MORPHINE SUL Oral CONC 10 MG/0.5 ML ORAL.SYG SL PRN (08:57)
--- NOTE | 2017-12-21 10:31 | Palliative - Consult Note ---
Date of Encounter: 12/21/17 Time of Encounter: 10:00 - Assessment and Plan (1) Cancer associated pain Current Visit: Yes Status: Acute Assessment and plan: Will add Oxycodone 5mg every 6 hours for pain. He has had Roxanol ordered subligually - utilizes x2 last 24 hours. Monitor (2) Pneumonia Current Visit: No Status: Acute Qualifiers: Lung location: unspecified part of lung Qualified Code(s): J18.9 - Pneumonia, unspecified organism (3) Counseling regarding advanced care planning and goals of care Current Visit: Yes Status: Acute Assessment and plan: Patient just returned from radiation. Mother at bedside. Discussed goals of care briefly. Patient was anxious and agitated at times during conversation. Discussed power of validation analyst - his mother spoke up and said she desired POA. Patient stated it was his decision and he wanted to think about it. It was obvious he was not comfortable sharing much information with visitors in the room and asked that we come back later. He is also making some inappropriate statements at times. Will revisit in am, and see if he is more focused to discuss POA and code status. His mother at bedside is questioning a referral to [facility] after radiation is completed here. Conveyed they would need to discuss with oncology. (4) Vasogenic brain edema Current Visit: Yes Status: Acute Assessment and plan: Continues on Dexamethasone. Begins brain radiation today. 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 Zamora is a 57 year old male who has a history of hypertension and tobacco abuse who was originally admitted under the psychiatrist service for psychosis/ visual hallucinations. Patient had complained of abd pain and generalized weakness, and workup initially found kidney stones and a hepatic lesion. Further testing demonstrated a large right lung mass. CT head demonstrated metastatic lesion with vasogenic edema and mass effect. Neurology and Oncology were consulted and their notes reviewed. Biopsy was performed with bronchoscopy and pathology report was Non small cell lung cancer. Radiation Oncology has also been consulted and they recommended brain radation which is actually scheduled to begin today. Patient has complex social situation - currently staying with his mother. Patient has 7 children, is . Currently full code status. Psychiatry has continue to follow patient. Upon my visit, pt is asleep - awakens easily. Flat affect. C/o pain "all over ". Desires me to let him go back to sleep, and does not want to answer many questions at this time. Aware he has radiation scheduled later today. CC: Merline Connors Past Med Surg Social Fam HX - Past Medical History Medical history: COPD, hypertension, kidney stones, migraine Psychiatric history: previous psychiatric hospitalization - Past Surgical History Surgical History: no surgical history - Social History Smoking Status: Current every day smoker Smokeless Tobacco Status: No Alcohol use: none, occasionally Drug use: marijuana - Family History Brother Family Member Ethnicity: Non- Living Status: Hx Family Cardiac Disorders: Yes ([place]) Hx Family Endocrine Disorder: Yes (DM) Sister Family Member Ethnicity: Non- Living Status: Father Family Member Ethnicity: Non- Living Status: Hx Family Cardiac Disorders: Yes (HD, CHF) Mother Family Member Ethnicity: Non- Living Status: Still Living Hx Family Neurologic Disorders: Yes (Dementia) Medications and Allergies Aspirin [Adult Low Dose Aspirin EC] 81 mg PO DAILY PRN 08/16/15 [History] Lisinopril-HCTZ 20-12.5 [Prinzide 20-12.5] 1 each PO DAILY #21 tablet 04/29/16 [ Rx] Albuterol Sulfate [Ventolin Hfa] 2 puff IH Q4-6H PRN 12/01/17 [History] Vitamin E 100 unit PO DAILY 12/01/17 [History] 3 Allergy/AdvReac Type Severity Reaction Status Date / Time acetaminophen [From Vicodin] Allergy Hallucinati Verified 07/18/15 12:34 ng hydrocodone [From Vicodin] Allergy Hallucinati Verified 07/18/15 12:34 ng Penicillins [PCN] Allergy childhood Verified 08/16/15 07:59 reaction "hot feeling inside" aspirin [ASA] AdvReac Abdominal Verified 04/29/16 00:18 Pain All systems: reviewed and no additional remarkable complaints except as stated ( generalized weakness, "pain all over") Palliative Care-Exam - Constitutional Vitals: Temp Pulse Resp BP Pulse Ox 98.1 F 66 16 166/82 96 12/21/17 07:31 12/21/17 07:31 12/21/17 07:52 12/21/17 07:52 12/21/17 07:52 General appearance: Present: febrile, cooperative, no acute distress - Head Head Exam: Present: normal inspection, normocephalic - Eye Eye exam: Present: normal appearance, PERRL - Respiratory Respiratory exam: Present: decreased breath sounds, CTAB - Cardiovascular Cardiovascular exam: Present: +S1, +S2 - GI/Abdominal Exam GI/Abdominal exam: Present: normal bowel sounds, soft - Extremities Exam Extremities exam: Present: normal capillary refill, normal inspection Internal Medicine - CN: Reslt - Labs CBC & Chem 7: 12/20/17 04:22 12/21/17 04:14 Labs: BMP 12/21/17 04:14 Sodium 137 Potassium 4.4 Chloride 92 L Carbon Dioxide 40 H* BUN 28 H Creatinine 1.18 Glucose 111 H Calcium 8.9 Consult Discharge Plan - Plan Additional Instructions: Please also follow up with appointments set up by [address] Department[address] Provided at discharge Referrals: Aixa Gonzalez, [employer] [Advanced Practice Nurse] - 12/22/17 1:45 pm Palliative Quality Palliative Quality: Screen for Code Status: NA (awaiting family arrival), Screen for Goals of Care: NA, Screen for Pain: Yes, If Pain Regimen Started, Initiate Bowel Regimen: NA, Screen for Nausea/Vomitting: Yes Code Status: 12/13/17 16:15 Resuscitation Status: Active [RES] Routine Comment: Resuscitation Status: Full Code
[2017-12-21] MEDS: Furosemide 40 MG TABLET PO SCH (12:32)
[2017-12-21] MEDS: *HR* OxyCODONE Immed Rel 5 MG TABLET PO PRN ×2 (12:36→22:03)
[2017-12-21] MEDS: Acetaminophen 325 MG TABLET PO PRN (16:48)
[2017-12-21] MEDS: traZODone 50 MG TABLET PO SCH (21:43)
[2017-12-21] MEDS: Ondansetron 4 MG/2 ML VIAL IVP PRN (21:43)
[2017-12-22] MEDS: Acetaminophen 325 MG TABLET PO PRN (04:18)
[2017-12-22] MEDS: Ondansetron 4 MG/2 ML VIAL IVP PRN (04:18)
[2017-12-22] MEDS: Benzonatate 100 MG CAPSULE PO PRN ×2 (04:18→21:25)
[2017-12-22] MEDS: levETIRAcetam 250 MG TABLET PO SCH ×2 (06:05→16:19)
--- NOTE | 2017-12-22 07:21 | Internal Med Progress Note ---
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 MRI brain with large parieto-occipital brain mets with slight midline shift. Leptomeningeal carcinomatosis. CT abdomen and pelvis showed a spot on the liver. Cytopathology confirms non-small cell carcinoma with features consistent with poorly differentiated lung adenocarcinoma. CTA revealed 40 x 63 mm masslike density within the superior segment of the right lower lobe. Oncology and neurology following. Continue with steroids and GI prophylaxis Tylenol and Morphine SL prn pain Continue Keppra for seizure precautions. Neurologically stable. Plan is likely palliative radiotherapy to control his symptoms and continue with radiation oncology. Will continue to follow closely with neurology and oncology recommendations. Mother at bedside is questioning a referral to [facility] after radiation is completed here. Will need to discuss with oncology. Palliative care following, appreciate recommendations. Hospice is also a possible option. 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 There was right frontotemporoparietal lobe vasogenic edema. Mass effect and partial effacement of the right lateral ventricle. No significant midline shift. Neurology is following. Continue Keppra. Tapering Decadron per neurology/ oncology. (4) COPD (chronic obstructive pulmonary disease) Current Visit: No Status: Chronic Assessment and plan: Underlying COPD. Patient is not in exacerbation. Continue inhalers. Qualifiers: COPD type: unspecified COPD Qualified Code(s): J44.9 - Chronic obstructive pulmonary disease, unspecified (5) Tobacco abuse Current Visit: No Status: Chronic Assessment and plan: Nicotine patch. Tobacco cessation (6) Acute metabolic encephalopathy Current Visit: Yes Status: Acute Assessment and plan: Resolving. Likely secondary to brain metastasis and history of psych disorders. His son states that he is back to baseline. AOx3. Continue to monitor. (7) Schizophrenia Current Visit: No Status: Acute Assessment and plan: Outpatient management. Qualifiers: Schizophrenia type: disorganized schizophrenia Qualified Code(s): F20.1 - Disorganized schizophrenia (8) Hypertension Current Visit: No Status: Acute Assessment and plan: Continue antihypertensive meds. Qualifiers: Hypertension type: essential hypertension Qualified Code(s): I10 - Essential (primary) hypertension (9) Renal calculus Current Visit: No Status: Acute Assessment and plan: CT revealed 1-2 mm calculus in the proximal right ureter and 2-3 mm calculus on the left renal pole. Patient has had a history of renal stones requiring nephrostomy tubes and well known to the urology service. Continue to treat conservatively, stones should pass on their own. Continue antiemetics and pain control. (10) DVT prophylaxis Current Visit: No Status: Acute Assessment and plan: SCDs. Avoid Heparin due to brain mets Code(s): [id number] - (11) Pleural effusion due to another disorder Current Visit: Yes Status: Acute Assessment and plan: Bronchoscopy on 12/16/17 Results: RLL FNA: Non-small cell carcinoma with features consistent with a poorly differentiated lung adenocarcinoma RLL BAL: Negative for malignancy. Right hilum FNA: Negative for malignancy. CTA reveals no PE and small bilateral pleural effusions with bibasilar atelectasis, new since previous chest CT. Lasix 40mg IV x1 given 12/20/17 Patient is 10L positive during hospital stay No respiratory distress. Continue Lasix 40mg PO daily - Time Spent With Patient Total time spent is greater than 50% in coordination of care (as documented) at patient's floor/unit and/or counseling patient: - Subjective Interval history: Patient seen and examined. He reports nausea, cough, and pain today. Patient is requiring 2L supplemental O2 and remains on high dose steroids. Patient requests speaking with clarity developer and Palliative care team again today. Waiting on further oncology recommendations. - Constitutional Vitals: Temp Pulse Resp BP Pulse Ox 98.4 F 70 16 109/66 96 12/22/17 07:11 12/22/17 07:11 12/22/17 07:11 12/22/17 07:11 12/22/17 07:11 General appearance: Present: cooperative, A&O X 3, no acute distress, answers questions appropriately - Head Head exam: Present: atraumatic, normocephalic - Eye Eye exam: Present: PERRL, conjuntiva pink, sclera anicteric Pupils: Present: PERRL - ENT ENT exam: Present: mucous membranes dry, normal oropharynx - Neck Neck exam general surgery: Present: supple, trachea midline. Absent: lymphadenopathy - Respiratory Respiratory exam: Present: CTAB. Absent: accessory muscle use, rales, respiratory distress, rhonchi, wheezes Additional comments: 2L O2 via NC - Cardiovascular Cardiovascular exam: Present: RRR, +S1, +S2. Absent: diastolic murmur, gallop, rubs, systolic murmur - GI/Abdominal GI/Abdominal exam: Present: normal bowel sounds, soft, no peritoneal signs. Absent: distended, tenderness - Extremities Exam Extremities exam: Present: normal capillary refill, pedal edema (1+), warm, radial pulses palpable and symmetrical. Absent: calf tenderness, cyanotic - Back Exam Back exam: Present: normal inspection. Absent: tenderness - Neurological Exam Neurological exam: Present: alert, CN II-XII intact, oriented X3, no focal deficits. Absent: altered, pronater drift, facial droop, speech deficit - Psychiatric Psychiatric exam: Present: flat affect, normal mood - Skin Skin exam: Present: dry, intact, normal color, warm Internal Medicine: Result - Labs CBC & Chem 7: 12/20/17 04:22 12/21/17 04:14 - Pulse Oximetry Interpretation Digit-Finger Pulse Oximetry Readin (2L O2 via NC) Consult Discharge Plan - Plan Additional Instructions: Please also follow up with appointments set up by [address] Department[address] Provided at discharge Referrals: Aixa Gonzalez CNP [Advanced Practice Nurse] - 12/22/17 1:45 pm <Brian Pan - Last Filed: 12/22/17 11:27> Date of Encounter: 12/22/17 - Assessment and plan (1) DVT prophylaxis Current Visit: No Status: Acute Code(s): [id number] - (2) Schizophrenia Current Visit: No Status: Acute Qualifiers: Schizophrenia type: disorganized schizophrenia Qualified Code(s): F20.1 - Disorganized schizophrenia (3) COPD (chronic obstructive pulmonary disease) Current Visit: No Status: Chronic Qualifiers: COPD type: unspecified COPD Qualified Code(s): J44.9 - Chronic obstructive pulmonary disease, unspecified (4) Tobacco abuse Current Visit: No Status: Chronic (5) Hypertension Current Visit: No Status: Acute Qualifiers: Hypertension type: essential hypertension Qualified Code(s): I10 - Essential (primary) hypertension (6) Renal calculus Current Visit: No Status: Acute (7) Vasogenic brain edema Current Visit: Yes Status: Acute (8) 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 Current Visit: Yes Status: Acute (9) 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 Current Visit: Yes Status: Acute (10) Acute metabolic encephalopathy Current Visit: Yes Status: Acute (11) Pleural effusion due to another disorder Current Visit: Yes Status: Acute - Time Spent With Patient Total time spent is greater than 50% in coordination of care (as documented) at patient's floor/unit and/or counseling patient: - Constitutional Vitals: Temp Pulse Resp BP Pulse Ox 98.8 F 72 16 145/77 96 12/22/17 11:16 12/22/17 11:16 12/22/17 11:16 12/22/17 11:16 12/22/17 11:16 Internal Medicine: Result - Labs CBC & Chem 7: 12/20/17 04:22 12/21/17 04:14 - Attending Attestation Metastatic adenocarcinoma of the lung The patient cannot focus of the moment deciding on whether to become a DNR code or to persist being a Full code. Very poor prognosis in the short run. Continue Decadron. Palliative consult I examined this patient and my medical decision-making was reviewed with the Resident Physician. I agree with the documented findings, disposition and treatment plan as described except to the extent set forth below.
[2017-12-22] MEDS: Budesonide/Formoterol 160/4.5 MDI IH SCH ×2 (08:12→20:36)
[2017-12-22] MEDS: risperiDONE 1 MG TABLET PO SCH ×2 (08:58→21:25)
[2017-12-22] MEDS: *HR* OxyCODONE Immed Rel 5 MG TABLET PO PRN ×2 (08:58→16:19)
[2017-12-22] MEDS: Nicotine 21 MG PATCH.TD24 TD SCH (08:58)
[2017-12-22] MEDS: Dexamethasone 4 MG/ML VIAL IVP SCH (08:58)
[2017-12-22] MEDS: Furosemide 40 MG TABLET PO SCH (08:58)
--- NOTE | 2017-12-22 14:43 | Palliative Progress Note ---
Date of Encounter: 12/22/17 Time of Encounter: 14:00 - Assessment and plan (1) Cancer associated pain Current Visit: Yes Status: Acute Assessment and plan: Continue with Oxycodone 5mg - has utilized x3 last 24 hours. MOnitor. He also has Roxanol if needed. (2) Pneumonia Current Visit: No Status: Acute Qualifiers: Lung location: unspecified part of lung Qualified Code(s): J18.9 - Pneumonia, unspecified organism (3) Counseling regarding advanced care planning and goals of care Current Visit: Yes Status: Acute Assessment and plan: Long discussion with pt, high school social studies tutor, Dwight Diallo and myself regarding goals of care. Patient had difficult time following conversation and staying on topic. He is refusing to name anyone as power of tax attorney at this time, and states he needs to continue to "think about it". Discussed code status at length, pt continued to change the subject multiple times. He speaks frequently about the Bible and refers to people in the Bible. He finally stated that he wanted to live as long as possible and stated that he would not make a decision regarding code status at this time. Discussed that upon completion of radiation, oncology would discuss options regarding treatments. If he was not a candidate for treatment, or if he decided not to do treatment, that hospice would be option for him to be comfortable and have symptom management at home. He did not appear to fully understand this. wireworker attempted to explain much of the above as well. Code status remains FULL. Discussed home needs - he does plan on going back home with his mother. States he has oxygen at home, but when questioned further, this is actually his mother' s oxygen that he has been using occasionally. Will attempt to qualify for home oxygen. He does not appear to have a great relationship with his mother. Very concerned going forward regarding pt compliance with appointments and follow through with treatment plan. States he [facility]. 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 Has already had radiation today. He is currently rating pain a 71/2 out of 10 - but states that Oxycodone has been helpful. Asking for lozenge for sore throat. No family is present in room. - Constitutional Vitals: Abnormal lab results RBC 2.93 M/mcL (4.19-5.50) L 12/20/17 04:22 Hgb 9.5 g/dL (12.9-16.9) L 12/20/17 04:22 Hct 28.3 % (37.5-50.1) L 12/20/17 04:22 Plt Count 108 K/mcL (140-400) L 12/20/17 04:22 Nucleated RBCs/100 WBC 0.2 /100 WBC (0) H 12/17/17 02:50 Chloride 92 mEq/L (98-107) L 12/21/17 04:14 Carbon Dioxide 40 mEq/L (23-29) H* 12/21/17 04:14 BUN 28 mg/dL (6-20) H 12/21/17 04:14 Glucose 111 mg/dL (70-105) H 12/21/17 04:14 Fluid Appearance Hazy (Clear) A 12/15/17 17:11 General appearance: Present: no acute distress - Respiratory Respiratory exam: Present: decreased breath sounds, CTAB - Cardiovascular Cardiovascular exam: Present: +S1, +S2 - GI/Abdominal GI/Abdominal exam: Present: normal bowel sounds, soft - Extremities Exam Extremities exam: Present: normal capillary refill, normal inspection - Neurological Exam Neurological exam: Present: alert, oriented X3, strengths equal and symetr throughout - Psychiatric Psychiatric exam: Present: flat affect - Skin Skin exam: Present: dry, warm Palliative Quality Palliative Quality: Screen for Code Status: NA (awaiting family arrival), Screen for Goals of Care: NA, Screen for Pain: Yes, If Pain Regimen Started, Initiate Bowel Regimen: NA, Screen for Nausea/Vomitting: Yes Code Status: 12/13/17 16:15 Resuscitation Status: Active [RES] Routine Comment: Resuscitation Status: Full Code - Labs CBC & Chem 7: 12/20/17 04:22 12/21/17 04:14 Consult Discharge Plan - Plan Additional Instructions: Please also follow up with appointments set up by [address] Department. Provided at discharge Referrals: Aixa Gonzalez CNP [Advanced Practice Nurse] - 12/22/17 1:45 pm
--- NOTE | 2017-12-22 16:57 | Oncology Inp Progress Note ---
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 He is tolerating palliative RT to brain without difficulty. DEx may be given orally twice daily. Will obtain further imaging with contrast/PET at later date. Plan immunotherapy/targeted therapy if mutation analysis/PDl1 positive, after discussion with patient and family. Chemotherapy may be a difficult treatment for him, but need to re-evaluate towards end of brain radiation therapy/upon follow up PAlliative care team help with symptom management, goals of care appreciated. Oncology: Subj Interval history: Pt was seen with radiation therapy today. He has some headache, made some conversation about how he feels with everything. - Constitutional Vitals: Vital Signs Temp Pulse Resp BP Pulse Ox 12/22/17 15:22 97.7 F 72 23 150/83 99 12/22/17 11:16 98.8 F 72 16 145/77 96 12/22/17 08:12 16 109/66 96 12/22/17 07:11 98.4 F 70 16 109/66 96 12/22/17 04:09 97.9 F 96 14 123/72 100 12/21/17 23:41 97.7 F 77 14 113/65 98 12/21/17 20:12 98.2 F 82 15 145/71 90 12/21/17 19:28 16 97 Intake and Output 12/22/17 12/22/17 12/22/17 07:59 15:59 23:59 Intake Total 120 / 120 30 / 30 Output Total 0 / 0 0 / 0 0 / 0 Balance 0 / 0 120 / 120 30 / 30 Intake: Oral 120 / 120 30 / 30 Output: Urine 0 / 0 0 / 0 0 / 0 General appearance: no acute distress - Head Head exam: Present: atraumatic, normal inspection - Eye Eye exam: Present: sclera anicteric - ENT ENT exam: Present: mucous membranes moist - Neck Neck exam: Present: full ROM - Respiratory Respiratory exam: Present: CTAB - Cardiovascular Cardiovascular exam: Present: +S1, +S2 - GI/Abdominal GI/Abdominal exam: Present: normal bowel sounds, soft - Extremities Exam Additional comments: no edema, moves all extremities - Neurological Exam Neurological exam: Present: alert, CN II-XII intact, no focal deficits - Psychiatric Psychiatric exam: Present: flat affect Oncology: Obj Data - Labs CBC & Chem 7: 12/20/17 04:22 12/21/17 04:14 Consult Discharge Plan - Plan Additional Instructions: Please also follow up with appointments set up by [address] Department[address] Provided at discharge Referrals: Aixa Gonzalez CNP [Advanced Practice Nurse] - 12/22/17 1:45 pm
[2017-12-22] MEDS: traZODone 50 MG TABLET PO SCH (21:25)
[2017-12-23] MEDS: levETIRAcetam 250 MG TABLET PO SCH ×2 (06:21→17:47)
[2017-12-23 06:26] LABS: BUN/Creatinine Ratio 26 (6-26); Blood Urea Nitrogen 29 mg/dL (6-20); Carbon Dioxide 40 mEq/L (23-29); Chloride 93 mEq/L (98-107); Glucose 103 mg/dL (70-105); Osmolality,Calculated 290 (280-300); Potassium 4.5 mEq/L (3.5-5.1); Sodium 137 mEq/L (136-145); eGFR For African Americans > 60 (> 60); eGFR For Non-African Americans > 60 (> 60)
[2017-12-23] MEDS: Budesonide/Formoterol 160/4.5 MDI IH SCH ×2 (07:29→21:30)
--- NOTE | 2017-12-23 09:36 | Internal Med Progress Note ---
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 MRI brain with large parieto-occipital brain mets with slight midline shift. Leptomeningeal carcinomatosis. CT abdomen and pelvis showed a spot on the liver. Cytopathology confirms non-small cell carcinoma with features consistent with poorly differentiated lung adenocarcinoma. CTA revealed 40 x 63 mm masslike density within the superior segment of the right lower lobe. Oncology and neurology following. Continue with steroids and GI prophylaxis Tylenol and Morphine SL prn pain Continue Keppra for seizure precautions. Neurologically stable. Transitioned to PO steroids. Plan is likely palliative radiotherapy to control his symptoms and continue with radiation oncology. Outpatient follow up with oncology. Encouraged PT/OT participation today. Palliative care following, appreciate recommendations. Awaiting further palliative care recommendations for discharge planning. 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 There was right frontotemporoparietal lobe vasogenic edema. Mass effect and partial effacement of the right lateral ventricle. No significant midline shift. Neurology is following. Continue Keppra. Tapering Decadron per neurology/ oncology. Transitioned to PO steroids BID. (4) COPD (chronic obstructive pulmonary disease) Current Visit: No Status: Chronic Assessment and plan: Underlying COPD. Patient is not in exacerbation. Continue inhalers. Qualifiers: COPD type: unspecified COPD Qualified Code(s): J44.9 - Chronic obstructive pulmonary disease, unspecified (5) Tobacco abuse Current Visit: No Status: Chronic Assessment and plan: Nicotine patch. Tobacco cessation (6) Acute metabolic encephalopathy Current Visit: Yes Status: Acute Assessment and plan: Resolving. Likely secondary to brain metastasis and history of psych disorders. His son states that he is back to baseline. AOx3. Continue to monitor. (7) Schizophrenia Current Visit: No Status: Acute Assessment and plan: Outpatient management. Qualifiers: Schizophrenia type: disorganized schizophrenia Qualified Code(s): F20.1 - Disorganized schizophrenia (8) Hypertension Current Visit: No Status: Acute Assessment and plan: Continue antihypertensive meds. Qualifiers: Hypertension type: essential hypertension Qualified Code(s): I10 - Essential (primary) hypertension (9) Renal calculus Current Visit: No Status: Acute Assessment and plan: CT revealed 1-2 mm calculus in the proximal right ureter and 2-3 mm calculus on the left renal pole. Patient has had a history of renal stones requiring nephrostomy tubes and well known to the urology service. Continue to treat conservatively, stones should pass on their own. Continue antiemetics and pain control. (10) DVT prophylaxis Current Visit: No Status: Acute Assessment and plan: SCDs. Code(s): HIT5351 - (11) Pleural effusion due to another disorder Current Visit: Yes Status: Acute Assessment and plan: Bronchoscopy on 12/16/17 Results: RLL FNA: Non-small cell carcinoma with features consistent with a poorly differentiated lung adenocarcinoma RLL BAL: Negative for malignancy. Right hilum FNA: Negative for malignancy. CTA reveals no PE and small bilateral pleural effusions with bibasilar atelectasis, new since previous chest CT. Lasix 40mg IV x1 given 12/20/17 Patient is 10L positive during hospital stay No respiratory distress. Continue Lasix 40mg PO daily - Time Spent With Patient Total time spent is greater than 50% in coordination of care (as documented) at patient's floor/unit and/or counseling patient: - Subjective Interval history: Patient seen and examined. He reports feeling somewhat improved today. Patient is requiring 2L supplemental O2 and was transitioned to PO steroids. Awaiting further palliative care recommendations for discharge planning. Encouraged PT/ OT participation today. - Constitutional Vitals: Temp Pulse Resp BP Pulse Ox 98.4 F 66 16 150/76 93 12/23/17 03:25 12/23/17 03:25 12/23/17 03:25 12/23/17 03:25 12/23/17 03:25 General appearance: Present: cooperative, A&O X 3, no acute distress, answers questions appropriately - Head Head exam: Present: atraumatic, normocephalic - Eye Eye exam: Present: PERRL, conjuntiva pink, sclera anicteric Pupils: Present: PERRL - ENT ENT exam: Present: mucous membranes dry, normal oropharynx - Neck Neck exam general surgery: Present: supple, trachea midline. Absent: lymphadenopathy - Respiratory Respiratory exam: Present: CTAB. Absent: accessory muscle use, rales, rhonchi, wheezes - Cardiovascular Cardiovascular exam: Present: RRR, +S1, +S2. Absent: diastolic murmur, gallop, rubs, systolic murmur - GI/Abdominal GI/Abdominal exam: Present: normal bowel sounds, soft, no peritoneal signs. Absent: distended, tenderness - Extremities Exam Extremities exam: Present: warm, radial pulses palpable and symmetrical. Absent : calf tenderness, cyanotic, pedal edema - Back Exam Back exam: Present: normal inspection. Absent: tenderness - Neurological Exam Neurological exam: Present: CN II-XII intact, oriented X3, no focal deficits. Absent: pronater drift, facial droop, speech deficit - Psychiatric Psychiatric exam: Present: flat affect, normal mood - Skin Skin exam: Present: dry, intact, normal color, warm Internal Medicine: Result - Labs CBC & Chem 7: 12/20/17 04:22 12/23/17 05:16 Labs: BMP 12/23/17 05:16 Sodium 137 Potassium 4.5 Chloride 93 L Carbon Dioxide 40 H* BUN 29 H Creatinine 1.13 Glucose 103 Calcium 9.0 - Pulse Oximetry Interpretation Digit-Finger Pulse Oximetry Readin (On 2L O2 via NC) - Impressions Impressions Cervical Spine MRI 12/21/17 11:28 IMPRESSION: No spinal metastases identified. Partially visualized leptomeningeal carcinomatosis of the posterior fossa. D/ / Chin Nesbitt MD / Chin Nesbitt MD Interpreting Provider: Chin Nesbitt MD Lumbar Spine MRI 12/21/17 11:28 IMPRESSION: No spinal metastases identified. D/ / Chin Nesbitt MD / Chin Nesbitt MD Interpreting Provider: Chin Nesbitt MD Sacrum/Coccyx MRI 12/21/17 11:28 IMPRESSION: No evidence of metastatic disease. D/ / Rian Mitchell MD / Rian Mitchell MD Interpreting Provider: Rian Mitchell MD Thoracic Spine MRI 12/21/17 11:28 IMPRESSION: No spinal metastases identified. D/ / Chin Nesbitt MD / Chin Nesbitt MD Interpreting Provider: Chin Nesbitt MD Consult Discharge Plan - Plan Additional Instructions: Please also follow up with appointments set up by [address] Department[address] Provided at discharge Referrals: Aixa Gonzalez CNP [Advanced Practice Nurse] - 12/22/17 1:45 pm <Brian Pan - Last Filed: 12/23/17 11:36> Date of Encounter: 12/23/17 - Assessment and plan (1) DVT prophylaxis Current Visit: No Status: Acute Code(s): BCQ2559 - (2) Schizophrenia Current Visit: No Status: Acute Qualifiers: Schizophrenia type: disorganized schizophrenia Qualified Code(s): F20.1 - Disorganized schizophrenia (3) COPD (chronic obstructive pulmonary disease) Current Visit: No Status: Chronic Qualifiers: COPD type: unspecified COPD Qualified Code(s): J44.9 - Chronic obstructive pulmonary disease, unspecified (4) Tobacco abuse Current Visit: No Status: Chronic (5) Hypertension Current Visit: No Status: Acute Qualifiers: Hypertension type: essential hypertension Qualified Code(s): I10 - Essential (primary) hypertension (6) Renal calculus Current Visit: No Status: Acute (7) Vasogenic brain edema Current Visit: Yes Status: Acute (8) 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 Current Visit: Yes Status: Acute (9) 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 Current Visit: Yes Status: Acute (10) Acute metabolic encephalopathy Current Visit: Yes Status: Acute (11) Pleural effusion due to another disorder Current Visit: Yes Status: Acute - Time Spent With Patient Total time spent is greater than 50% in coordination of care (as documented) at patient's floor/unit and/or counseling patient: - Constitutional Vitals: Temp Pulse Resp BP Pulse Ox 98.1 F 68 20 152/71 96 12/23/17 11:19 12/23/17 11:19 12/23/17 11:19 12/23/17 11:19 12/23/17 11:19 Internal Medicine: Result - Labs CBC & Chem 7: 12/20/17 04:22 12/23/17 05:16 Labs: BMP 12/23/17 05:16 Sodium 137 Potassium 4.5 Chloride 93 L Carbon Dioxide 40 H* BUN 29 H Creatinine 1.13 Glucose 103 Calcium 9.0 - Impressions Impressions Cervical Spine MRI 12/21/17 11:28 IMPRESSION: No spinal metastases identified. Partially visualized leptomeningeal carcinomatosis of the posterior fossa. D/ / Chin Nesbitt MD / Chin Nesbitt MD Interpreting Provider: Chin Nesbitt MD Lumbar Spine MRI 12/21/17 11:28 IMPRESSION: No spinal metastases identified. D/ / Chin Nesbitt MD / Chin Nesbitt MD Interpreting Provider: Chin Nesbitt MD Sacrum/Coccyx MRI 12/21/17 11:28 IMPRESSION: No evidence of metastatic disease. D/ / Rian Mitchell MD / Rian Mitchell MD Interpreting Provider: Rian Mitchell MD Thoracic Spine MRI 12/21/17 11:28 IMPRESSION: No spinal metastases identified. D/ / Chin Nesbitt MD / Chin Nesbitt MD Interpreting Provider: Chin Nesbitt MD - Attending Attestation Metastatic adenocarcinoma of the lung The patient cannot focus of the moment deciding on whether to become a DNR code or to persist being a Full code. Very poor prognosis in the short run. Continue Decadron. Palliative consulted. The patient wants to be a full code. May be able to be discharged I examined this patient and my medical decision-making was reviewed with the Resident Physician. I agree with the documented findings, disposition and treatment plan as described except to the extent set forth below.
[2017-12-23] MEDS: risperiDONE 1 MG TABLET PO SCH ×2 (10:21→21:20)
[2017-12-23] MEDS: Nicotine 21 MG PATCH.TD24 TD SCH (10:21)
[2017-12-23] MEDS: Benzonatate 100 MG CAPSULE PO PRN (10:22)
[2017-12-23] MEDS: *HR* Promethazine 25 MG/ML VIAL IVP PRN (10:22)
[2017-12-23] MEDS: *HR* OxyCODONE Immed Rel 5 MG TABLET PO PRN ×2 (10:23→17:47)
[2017-12-23] MEDS: Furosemide 40 MG TABLET PO SCH (10:23)
--- NOTE | 2017-12-23 14:16 | Physician Discharge Referral ---
<NelshannonXu - Last Filed: 12/23/17 14:14> Home Health/Hosp Referral Info Transfer to: Home Health Attending Provider: Dr. 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 Priority: Primary Status: Acute (3) Vasogenic brain edema Priority: Primary Status: Acute (4) Pleural effusion due to another disorder Priority: Primary Status: Acute (5) COPD (chronic obstructive pulmonary disease) Priority: Primary Status: Chronic (6) Tobacco abuse Priority: Secondary Status: Chronic (7) Acute metabolic encephalopathy Priority: Secondary Status: Acute (8) Schizophrenia Priority: Secondary Status: Acute (9) Hypertension Priority: Secondary Status: Acute (10) Renal calculus Priority: Secondary Status: Acute (11) DVT prophylaxis Priority: Secondary Status: Acute - Respiratory Orders Oxygen / L per min (2L continuous) Smoking Cessation: Smoking cessation has been advised. For more information, call the [place] Tobacco Quit Line at 0-391-UZGQ-NOW. - Diet/Nutrition Diet/Nutrition Orders: Regular (Add Magic cup lunch and dinner) - Activity Activity Orders: Up ad dania - Services Needed Following services are medically necessary services: Nursing, Home Health Aide, Physical Therapy, Occupational Therapy, Med Social Work - Transfer Medications Prescriptions: Albuterol Sulfate [Albuterol Inhaler] 2 puff IH Q2HR PRN #1 inhaler PRN Reason: Shortness Of Breath/Wheezing MORPHINE SUL Oral CONC [Roxanol Oral Conc] 5 mg SL Q4HR PRN 7 Days #14 oral.syg PRN Reason: Severe Pain levETIRAcetam [Keppra] 500 mg PO Q12HR #60 tablet Benzocaine/Menthol Kb [Cepacol Sore Throat Lozenge] 1 each MM Q2H PRN #14 lozenge PRN Reason: Sore Throat Benzonatate [Tessalon] 100 mg PO TID PRN #50 capsule PRN Reason: Cough Budesonide/Formoterol 160/4.5 [Symbicort 160/4.5] 2 puff IH BIDR #1 inhaler Dexamethasone [Decadron] 4 mg PO BID #14 tablet Dicyclomine [Bentyl] 20 mg PO Q6H PRN #30 capsule PRN Reason: abdominal cramping DULoxetine [Cymbalta] 30 mg PO DAILY #30 capsule. Furosemide [Lasix] 40 mg PO DAILY #30 tablet Nicotine Patch [Nicoderm] 21 mg TD DAILY #30 patch.td24 Omeprazole [PriLOSEC] 40 mg PO BIDAC #60 capsule. OxyCODONPatricio Immed Rel [Roxicodone 5 MG] 5 mg PO Q6H PRN 7 Days #30 tablet PRN Reason: Mild To Moderate Pain Polyethylene Glycol 3350 [MiraLAX] 17 gm PO DAILY PRN #30 powd.pack PRN Reason: Constipation risperiDONE [RisperDAL] 1 mg PO BID #60 tablet traZODone [TraZODone] 100 mg PO HS #30 tablet Home Medications: Albuterol Sulfate [Ventolin Hfa] 2 puff IH Q4-6H PRN 12/01/17 [History] Vitamin E 100 unit PO DAILY 12/01/17 [History] Acetaminophen [Tylenol] 650 mg PO Q6HR PRN tablet 12/23/17 [Rx] Albuterol Sulfate [Albuterol Inhaler] 2 puff IH Q2HR PRN #1 inhaler 12/23/17 [Rx ] Benzocaine/Menthol Kb [Cepacol Sore Throat Lozenge] 1 each MM Q2H PRN #14 lozenge 12/23/17 [Rx] Benzonatate [Tessalon] 100 mg PO TID PRN #50 capsule 12/23/17 [Rx] Budesonide/Formoterol 160/4.5 [Symbicort 160/4.5] 2 puff IH BIDR #1 inhaler [Rx] DULoxetine [Cymbalta] 30 mg PO DAILY #30 capsule. 12/23/17 [Rx] Dexamethasone [Decadron] 4 mg PO BID #14 tablet 12/23/17 [Rx] Dicyclomine [Bentyl] 20 mg PO Q6H PRN #30 capsule 12/23/17 [Rx] Furosemide [Lasix] 40 mg PO DAILY #30 tablet 12/23/17 [Rx] MORPHINE SUL Oral CONC [Roxanol Oral Conc] 5 mg SL Q4HR PRN 7 Days #14 oral.syg 12/23/17 [Rx] Nicotine Patch [Nicoderm] 21 mg TD DAILY #30 patch.td24 12/23/17 [Rx] Omeprazole [PriLOSEC] 40 mg PO BIDAC #60 capsule. 12/23/17 [Rx] OxyCODONE Immed Rel [Roxicodone 5 MG] 5 mg PO Q6H PRN 7 Days #30 tablet [Rx] Polyethylene Glycol 3350 [MiraLAX] 17 gm PO DAILY PRN #30 powd.pack 12/23/17 [Rx ] levETIRAcetam [Keppra] 500 mg PO Q12HR #60 tablet 12/23/17 [Rx] risperiDONE [RisperDAL] 1 mg PO BID #60 tablet 12/23/17 [Rx] traZODone [TraZODone] 100 mg PO HS #30 tablet 12/23/17 [Rx] Allergies/Adverse Reactions: 3 Allergy/AdvReac Type Severity Reaction Status Date / Time acetaminophen [From Vicodin] Allergy Hallucinati Verified 07/18/15 12:34 ng hydrocodone [From Vicodin] Allergy Hallucinati Verified 07/18/15 12:34 ng Penicillins [PCN] Allergy childhood Verified 08/16/15 07:59 reaction "hot feeling inside" aspirin [ASA] AdvReac Abdominal Verified 04/29/16 00:18 Pain Certification: Further, I certify that my clinical findings support that this patient is homebound (i.e. absences from home require considerable and taxing effort and are for medical reasons or yarsanism services or infrequently or short duration when for other reasons) because: Homebound Reason: Patient requires assistance of a person or device to safely leave home, Absences from home are contraindicated except to recieve medical care, Leaving home requires considerable and taxing effort due to condition, Altered mental status requiring supervision when leaving home, Severity of cardiac or pulmonary status limits activity tolerance Attestation: My signature below is to certify that this patient is under my care and that I, or nurse practitioner, or a physician's web marketing assistant working with me, has a face-to -face encounter with this patient. 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 For more information, call the [place] Tobacco Quit Line at 1-676-HXPL-NOW. Certification: Further, I certify that my clinical findings support that this patient is homebound (i.e. absences from home require considerable and taxing effort and are for medical reasons or yarsanism services or infrequently or short duration when for other reasons) because: Attestation: My signature below is to certify that this patient is under my care and that I, or nurse practitioner, or a physician's web marketing assistant working with me, has a face-to -face encounter with this patient.
--- NOTE | 2017-12-23 14:21 | Discharge Summary ---
<Xu Isaacs - Last Filed: 12/23/17 14:17> - NOTES TO OUTPATIENT PROVIDER Notes to Outpatient Provider: Continue Decardon BID for at least 1 week after starting radiation therapy. Oncology will obtain further imaging with contrast/ PET at later date. 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 MRI brain with large parieto-occipital brain mets with slight midline shift. Leptomeningeal carcinomatosis. CT abdomen and pelvis showed a spot on the liver. Cytopathology confirms non-small cell carcinoma with features consistent with poorly differentiated lung adenocarcinoma. CTA revealed 40 x 63 mm masslike density within the superior segment of the right lower lobe. Oncology and neurology following. Continue with steroids and GI prophylaxis Tylenol and Morphine SL prn pain Continue Keppra for seizure precautions. Neurologically stable. Transitioned to PO steroids. Plan is likely palliative radiotherapy to control his symptoms and continue with radiation oncology. Outpatient follow up with oncology. Encouraged PT/OT participation today. Palliative care following, appreciate recommendations. Awaiting further palliative care recommendations for discharge planning. 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 There was right frontotemporoparietal lobe vasogenic edema. Mass effect and partial effacement of the right lateral ventricle. No significant midline shift. Neurology is following. Continue Keppra. Tapering Decadron per neurology/ oncology. Transitioned to PO steroids BID. (4) COPD (chronic obstructive pulmonary disease) Priority: Primary Status: Chronic Assessment and Plan: Underlying COPD. Patient is not in exacerbation. Continue inhalers. Qualifiers: COPD type: unspecified COPD Qualified Code(s): J44.9 - Chronic obstructive pulmonary disease, unspecified (5) Tobacco abuse Priority: Secondary Status: Chronic Assessment and Plan: Nicotine patch. Tobacco cessation (6) Acute metabolic encephalopathy Priority: Secondary Status: Acute Assessment and Plan: Resolving. Likely secondary to brain metastasis and history of psych disorders. His son states that he is back to baseline. AOx3. Continue to monitor. (7) Schizophrenia Priority: Secondary Status: Acute Assessment and Plan: Outpatient management. Qualifiers: Schizophrenia type: disorganized schizophrenia Qualified Code(s): F20.1 - Disorganized schizophrenia (8) Hypertension Priority: Secondary Status: Acute Assessment and Plan: Continue antihypertensive meds. Qualifiers: Hypertension type: essential hypertension Qualified Code(s): I10 - Essential (primary) hypertension (9) Renal calculus Priority: Secondary Status: Acute Assessment and Plan: CT revealed 1-2 mm calculus in the proximal right ureter and 2-3 mm calculus on the left renal pole. Patient has had a history of renal stones requiring nephrostomy tubes and well known to the urology service. Continue to treat conservatively, stones should pass on their own. Continue antiemetics and pain control. (10) DVT prophylaxis Priority: Secondary Status: Acute Assessment and Plan: SCDs. Code(s): IRK0736 - (11) Pleural effusion due to another disorder Priority: Primary Status: Acute Assessment and Plan: Bronchoscopy on 12/16/17 Results: RLL FNA: Non-small cell carcinoma with features consistent with a poorly differentiated lung adenocarcinoma RLL BAL: Negative for malignancy. Right hilum FNA: Negative for malignancy. CTA reveals no PE and small bilateral pleural effusions with bibasilar atelectasis, new since previous chest CT. Lasix 40mg IV x1 given 12/20/17 Patient is 10L positive during hospital stay No respiratory distress. Continue Lasix 40mg PO daily Hospital course: Mr. Zamora is a 57 year old male with a PMH of non-small cell lung carcinoma, Leptomeningeal carcinomatosis, Vasogenic brain edema, COPD, hypertension, schizophrenia, and tobacco dependence who was started XRT and high-dose steroid therapy after starting radiotherapy and Keppra for seizure precautions. He is neurologically stable. Oncology and neurology followed patient during admission. Patient is required 2L continuous supplemental O2 and was qualified for home O2. CTA was negative for PE. Palliative care, case management social worker, and pastoral services worked closely with the patient and family to determine goals of care and end of life wishes. Patient wishes to remain full code status at this time. Continue Tylenol, Oxycodone, and Morphine SL prn pain and close follow up with radiation oncology upon discharge. Discharge discussed with: patient - Time Spent with Patient Total time spent providing and/or coordinating discharge services: Greater than 30 minutes - Discharge Medications Prescriptions: Albuterol Sulfate [Albuterol Inhaler] 2 puff IH Q2HR PRN #1 inhaler PRN Reason: Shortness Of Breath/Wheezing MORPHINE SUL Oral CONC [Roxanol Oral Conc] 5 mg SL Q4HR PRN 7 Days #14 oral.syg PRN Reason: Severe Pain levETIRAcetam [Keppra] 500 mg PO Q12HR #60 tablet Benzocaine/Menthol Kb [Cepacol Sore Throat Lozenge] 1 each MM Q2H PRN #14 lozenge PRN Reason: Sore Throat Benzonatate [Tessalon] 100 mg PO TID PRN #50 capsule PRN Reason: Cough Budesonide/Formoterol 160/4.5 [Symbicort 160/4.5] 2 puff IH BIDR #1 inhaler Dexamethasone [Decadron] 4 mg PO BID #14 tablet Dicyclomine [Bentyl] 20 mg PO Q6H PRN #30 capsule PRN Reason: abdominal cramping DULoxetine [Cymbalta] 30 mg PO DAILY #30 capsule. Furosemide [Lasix] 40 mg PO DAILY #30 tablet Nicotine Patch [Nicoderm] 21 mg TD DAILY #30 patch.td24 Omeprazole [PriLOSEC] 40 mg PO BIDAC #60 capsule. OxyCODONE Immed Rel [Roxicodone 5 MG] 5 mg PO Q6H PRN 7 Days #30 tablet PRN Reason: Mild To Moderate Pain Polyethylene Glycol 3350 [MiraLAX] 17 gm PO DAILY PRN #30 powd.pack PRN Reason: Constipation risperiDONE [RisperDAL] 1 mg PO BID #60 tablet traZODone [TraZODone] 100 mg PO HS #30 tablet Home Medications: Albuterol Sulfate [Ventolin Hfa] 2 puff IH Q4-6H PRN 12/01/17 [History] Vitamin E 100 unit PO DAILY 12/01/17 [History] Acetaminophen [Tylenol] 650 mg PO Q6HR PRN tablet 12/23/17 [Rx] Albuterol Sulfate [Albuterol Inhaler] 2 puff IH Q2HR PRN #1 inhaler 12/23/17 [Rx ] Benzocaine/Menthol Kb [Cepacol Sore Throat Lozenge] 1 each MM Q2H PRN #14 lozenge 12/23/17 [Rx] Benzonatate [Tessalon] 100 mg PO TID PRN #50 capsule 12/23/17 [Rx] Budesonide/Formoterol 160/4.5 [Symbicort 160/4.5] 2 puff IH BIDR #1 inhaler [Rx] DULoxetine [Cymbalta] 30 mg PO DAILY #30 capsule. 12/23/17 [Rx] Dexamethasone [Decadron] 4 mg PO BID #14 tablet 12/23/17 [Rx] Dicyclomine [Bentyl] 20 mg PO Q6H PRN #30 capsule 12/23/17 [Rx] Furosemide [Lasix] 40 mg PO DAILY #30 tablet 12/23/17 [Rx] MORPHINE SUL Oral CONC [Roxanol Oral Conc] 5 mg SL Q4HR PRN 7 Days #14 oral.syg 12/23/17 [Rx] Nicotine Patch [Nicoderm] 21 mg TD DAILY #30 patch.td24 12/23/17 [Rx] Omeprazole [PriLOSEC] 40 mg PO BIDAC #60 capsule. 12/23/17 [Rx] OxyCODONE Immed Rel [Roxicodone 5 MG] 5 mg PO Q6H PRN 7 Days #30 tablet [Rx] Polyethylene Glycol 3350 [MiraLAX] 17 gm PO DAILY PRN #30 powd.pack 12/23/17 [Rx ] levETIRAcetam [Keppra] 500 mg PO Q12HR #60 tablet 12/23/17 [Rx] risperiDONE [RisperDAL] 1 mg PO BID #60 tablet 12/23/17 [Rx] traZODone [TraZODone] 100 mg PO HS #30 tablet 12/23/17 [Rx] Allergies/Adverse Reactions: 3 Allergy/AdvReac Type Severity Reaction Status Date / Time acetaminophen [From Vicodin] Allergy Hallucinati Verified 07/18/15 12:34 ng hydrocodone [From Vicodin] Allergy Hallucinati Verified 07/18/15 12:34 ng Penicillins [PCN] Allergy childhood Verified 08/16/15 07:59 reaction "hot feeling inside" aspirin [ASA] AdvReac Abdominal Verified 04/29/16 00:18 Pain Date of admission: 12/13/17 17:34 Primary care physician: PCP NONE Consults: 12/13/17 16:17 Consult to Neurology [CONS] Routine Consulting Provider: [facility] Reason for Consult: brain mets with vasogenic edema Call Completed: Yes Consult to Physical Therapy [CONS] Routine Comment: Evaluate, develop and implement POC Reason for Consult: PT eval Does patient have active BEDREST order?: No Is patient medically & hemodynamically stable?: Yes Consult to Psychiatry [CONS] Routine Consulting Provider: Psychiatry [facility] Reason for Consult: continuation of psych management Call Completed: Yes Consult to Pulmonology [CONS] Routine Consulting Provider: [facility] Reason for Consult: lung mass Call Completed: Yes 12/13/17 18:22 Consult to Nutrition [CONS] Routine Comment: Consulting Provider: NUTRITION Reason for Dietary Consult: MST Score 12/15/17 08:51 Consult to Oncology Hematology [CONS] Routine Consulting Provider: Hunter Craft Reason for Consult: new metastatic diseas with likely lung primary Call Completed: Yes 12/17/17 17:47 Consult to Pastoral Services [CONS] Routine Comment: 12/20/17 12:52 Consult to Palliative Care [CONS] Routine Comment: Consulting Provider: Palliative Care Sherice Reason for Consult: Metastatic lung cancer, discuss prognosis and code status Call Completed: No 12/22/17 08:19 Consult to Pastoral Services [CONS] Routine Comment: Discharging clinician: Xu Isaacs Anticipated date of discharge: 12/23/17 - Constitutional Vitals: Temp Pulse Resp BP Pulse Ox 98.1 F 68 20 152/71 96 12/23/17 11:19 12/23/17 11:19 12/23/17 11:19 12/23/17 11:19 12/23/17 11:19 General appearance: Present: cooperative, A&O X 3, no acute distress, answers questions appropriately Exam: - Head Head exam: Present: atraumatic, normocephalic - Eye Eye exam: Present: PERRL, conjuntiva pink, sclera anicteric Pupils: Present: PERRL - ENT ENT exam: Present: mucous membranes dry, normal oropharynx - Neck Neck exam general surgery: Present: supple, trachea midline. Absent: lymphadenopathy - Respiratory Respiratory exam: Present: CTAB. Absent: accessory muscle use, rales, rhonchi, wheezes - Cardiovascular Cardiovascular exam: Present: RRR, +S1, +S2. Absent: diastolic murmur, gallop, rubs, systolic murmur - GI/Abdominal GI/Abdominal exam: Present: normal bowel sounds, soft, no peritoneal signs. Absent: distended, tenderness - Extremities Exam Extremities exam: Present: warm, radial pulses palpable and symmetrical. Absent : calf tenderness, cyanotic, pedal edema - Back Exam Back exam: Present: normal inspection. Absent: tenderness - Neurological Exam Neurological exam: Present: CN II-XII intact, oriented X3, no focal deficits. Absent: pronater drift, facial droop, speech deficit - Psychiatric Psychiatric exam: Present: flat affect, normal mood - Skin Skin exam: Present: dry, intact, normal color, warm - Patient Status Disposition: Home Health Service Condition: Fair Overall status at discharge: patient is not back to baseline - Discharge Instructions Follow Up With: Aixa Gonzalez GRADES 1 6 TUTOR [Advanced Practice Nurse] - Additional Instructions: Please also follow up with appointments set up by [address] Department[address] Provided at discharge - Diet and Activity Activity: as per physical therapy, wear oxygen at all times, wear oxygen at night Diet: regular diet (Magic up with lunch and dinner) <Brian Pan H - Last Filed: 12/23/17 17:00> Date of Encounter: 12/23/17 - Discharge Diagnosis (1) DVT prophylaxis Status: Acute Code(s): [id number] - (2) Schizophrenia Status: Acute Qualifiers: Schizophrenia type: disorganized schizophrenia Qualified Code(s): F20.1 - Disorganized schizophrenia (3) COPD (chronic obstructive pulmonary disease) Status: Chronic Qualifiers: COPD type: unspecified COPD Qualified Code(s): J44.9 - Chronic obstructive pulmonary disease, unspecified (4) Tobacco abuse Status: Chronic (5) Hypertension Status: Acute Qualifiers: Hypertension type: essential hypertension Qualified Code(s): I10 - Essential (primary) hypertension (6) Renal calculus Status: Acute (7) Vasogenic brain edema Status: Acute (8) 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 Zamora is a 57 year old male - Time Spent with Patient Total time spent providing and/or coordinating discharge services: Date of admission: 12/13/17 17:34 Primary care physician: PCP NONE Consults: 12/13/17 16:17 Consult to Neurology [CONS] Routine Consulting Provider: [facility] Reason for Consult: brain mets with vasogenic edema Call Completed: Yes Consult to Physical Therapy [CONS] Routine Comment: Evaluate, develop and implement POC Reason for Consult: PT eval Does patient have active BEDREST order?: No Is patient medically & hemodynamically stable?: Yes Consult to Psychiatry [CONS] Routine Consulting Provider: Psych[facility] Reason for Consult: continuation of psych management Call Completed: Yes Consult to Pulmonology [CONS] Routine Consulting Provider: [facility] Reason for Consult: lung mass Call Completed: Yes 12/13/17 18:22 Consult to Nutrition [CONS] Routine Comment: Consulting Provider: NUTRITION Reason for Dietary Consult: MST Score 12/15/17 08:51 Consult to Oncology Hematology [CONS] Routine Consulting Provider: Hunter Craft Reason for Consult: new metastatic diseas with likely lung primary Call Completed: Yes 12/17/17 17:47 Consult to Pastoral Services [CONS] Routine Comment: 12/20/17 12:52 Consult to Palliative Care [CONS] Routine Comment: Consulting Provider: Palliative Care Sherice Reason for Consult: Metastatic lung cancer, discuss prognosis and code status Call Completed: No 12/22/17 08:19 Consult to Pastoral Services [CONS] Routine Comment: - Constitutional Vitals: Temp Pulse Resp BP Pulse Ox 98.2 F 70 20 138/78 97 12/23/17 15:22 12/23/17 15:22 12/23/17 15:22 12/23/17 15:22 12/23/17 15:22 - Attending Attestation Metastatic adenocarcinoma of the lung Very poor prognosis in the short run. Continue Decadron. Palliative consulted. The patient wants to be a full code. Stable to be discharged time spent 40 min I examined this patient and my medical decision-making was reviewed with the Resident Physician. I agree with the documented findings, disposition and treatment plan as described except to the extent set forth below.
--- NOTE | 2017-12-23 16:28 | Physician Discharge Referral ---
<NelshannonXu - Last Filed: 12/23/17 16:26> ExtendedCare Referral Info Transfer To: SNF Provider in Charge: Dr. 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 Priority: Primary Status: Acute (3) Vasogenic brain edema Priority: Primary Status: Acute (4) Pleural effusion due to another disorder Priority: Primary Status: Acute (5) COPD (chronic obstructive pulmonary disease) Priority: Secondary Status: Chronic (6) Tobacco abuse Priority: Secondary Status: Chronic (7) Acute metabolic encephalopathy Priority: Secondary Status: Acute (8) Schizophrenia Priority: Secondary Status: Acute (9) Hypertension Priority: Secondary Status: Acute (10) Renal calculus Priority: Secondary Status: Acute (11) DVT prophylaxis Priority: Secondary Status: Acute Prognosis: Poor Aware of Diagnosis: Patient, Family Aware of Prognosis: Patient, Family - Transfer Medications Prescriptions: Albuterol Sulfate [Albuterol Inhaler] 2 puff IH Q2HR PRN #1 inhaler PRN Reason: Shortness Of Breath/Wheezing MORPHINE SUL Oral CONC [Roxanol Oral Conc] 5 mg SL Q4HR PRN 7 Days #14 oral.syg PRN Reason: Severe Pain levETIRAcetam [Keppra] 500 mg PO Q12HR #60 tablet Benzocaine/Menthol Kb [Cepacol Sore Throat Lozenge] 1 each MM Q2H PRN #14 lozenge PRN Reason: Sore Throat Benzonatate [Tessalon] 100 mg PO TID PRN #50 capsule PRN Reason: Cough Budesonide/Formoterol 160/4.5 [Symbicort 160/4.5] 2 puff IH BIDR #1 inhaler Dexamethasone [Decadron] 4 mg PO BID #14 tablet Dicyclomine [Bentyl] 20 mg PO Q6H PRN #30 capsule PRN Reason: abdominal cramping DULoxetine [Cymbalta] 30 mg PO DAILY #30 capsule. Furosemide [Lasix] 40 mg PO DAILY #30 tablet Nicotine Patch [Nicoderm] 21 mg TD DAILY #30 patch.td24 Omeprazole [PriLOSEC] 40 mg PO BIDAC #60 capsule. OxyCODONE Immed Rel [Roxicodone 5 MG] 5 mg PO Q6H PRN 7 Days #30 tablet PRN Reason: Mild To Moderate Pain Polyethylene Glycol 3350 [MiraLAX] 17 gm PO DAILY PRN #30 powd.pack PRN Reason: Constipation risperiDONE [RisperDAL] 1 mg PO BID #60 tablet traZODone [TraZODone] 100 mg PO HS #30 tablet Home Medications: Albuterol Sulfate [Ventolin Hfa] 2 puff IH Q4-6H PRN 12/01/17 [History] Vitamin E 100 unit PO DAILY 12/01/17 [History] Acetaminophen [Tylenol] 650 mg PO Q6HR PRN tablet 12/23/17 [Rx] Albuterol Sulfate [Albuterol Inhaler] 2 puff IH Q2HR PRN #1 inhaler 12/23/17 [Rx ] Benzocaine/Menthol Kb [Cepacol Sore Throat Lozenge] 1 each MM Q2H PRN #14 lozenge 12/23/17 [Rx] Benzonatate [Tessalon] 100 mg PO TID PRN #50 capsule 12/23/17 [Rx] Budesonide/Formoterol 160/4.5 [Symbicort 160/4.5] 2 puff IH BIDR #1 inhaler [Rx] DULoxetine [Cymbalta] 30 mg PO DAILY #30 capsule. 12/23/17 [Rx] Dexamethasone [Decadron] 4 mg PO BID #14 tablet 12/23/17 [Rx] Dicyclomine [Bentyl] 20 mg PO Q6H PRN #30 capsule 12/23/17 [Rx] Furosemide [Lasix] 40 mg PO DAILY #30 tablet 12/23/17 [Rx] MORPHINE SUL Oral CONC [Roxanol Oral Conc] 5 mg SL Q4HR PRN 7 Days #14 oral.syg 12/23/17 [Rx] Nicotine Patch [Nicoderm] 21 mg TD DAILY #30 patch.td24 12/23/17 [Rx] Omeprazole [PriLOSEC] 40 mg PO BIDAC #60 capsule. 12/23/17 [Rx] OxyCODONE Immed Rel [Roxicodone 5 MG] 5 mg PO Q6H PRN 7 Days #30 tablet [Rx] Polyethylene Glycol 3350 [MiraLAX] 17 gm PO DAILY PRN #30 powd.pack 12/23/17 [Rx ] levETIRAcetam [Keppra] 500 mg PO Q12HR #60 tablet 12/23/17 [Rx] risperiDONE [RisperDAL] 1 mg PO BID #60 tablet 12/23/17 [Rx] traZODone [TraZODone] 100 mg PO HS #30 tablet 12/23/17 [Rx] Allergies/Adverse Reactions: 3 Allergy/AdvReac Type Severity Reaction Status Date / Time acetaminophen [From Vicodin] Allergy Hallucinati Verified 07/18/15 12:34 ng hydrocodone [From Vicodin] Allergy Hallucinati Verified 07/18/15 12:34 ng Penicillins [PCN] Allergy childhood Verified 08/16/15 07:59 reaction "hot feeling inside" aspirin [ASA] AdvReac Abdominal Verified 04/29/16 00:18 Pain - Respiratory Orders Oxygen / L per min (2L continuous O2 via NC) Smoking Cessation: Smoking cessation has been advised. For more information, call the [employer] Quit Line at 7-946-KMKO-NOW. - Advance Directives Power of Polymerization Oven Operator: Yes Code Status: Full Code - Mobility Orders Chair, Ambulate - Rehabiliation Orders Rehab Potential: Poor Rehab Orders: Evaluation for Physical Therapy, Evaluation for Occupational Therapy - Treatments May check for fecal impaction rectally daily PRN, Fleet enema rectally every other day PRN cleansing purposes - Diet Orders Regular House Supplement per Dietary: Magic Cup with lunch and dinner CERTIFICATION: I certify that the transfer of the above named patient to an Extended Care Facility is necessary for the continuing treatment of the diagnosis listed. The above information is true and accurate reflection of patient's current condition. Confidential - Redisclosure prohibited without a patient's written consent. 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 For more information, call the [place] Tobacco Quit Line at 2-716-KOLRNOW. CERTIFICATION: I certify that the transfer of the above named patient to an Extended Care Facility is necessary for the continuing treatment of the diagnosis listed. The above information is true and accurate reflection of patient's current condition. Confidential - Redisclosure prohibited without a patient's written consent.
[2017-12-23] MEDS: traZODone 50 MG TABLET PO SCH (21:19)
[2017-12-24] MEDS: Acetaminophen 325 MG TABLET PO PRN (04:05)
[2017-12-24] MEDS: Ondansetron 4 MG/2 ML VIAL IVP PRN (04:05)
[2017-12-24] MEDS: Benzonatate 100 MG CAPSULE PO PRN (04:05)
[2017-12-24] MEDS: levETIRAcetam 250 MG TABLET PO SCH ×2 (06:09→18:56)
[2017-12-24] MEDS ORDERED: Ondansetron ODT 4 MG TAB.RAPDIS SL PRN (07:59)
--- NOTE | 2017-12-24 07:59 | Internal Med Progress Note ---
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 MRI brain with large parieto-occipital brain mets with slight midline shift. Leptomeningeal carcinomatosis. CT abdomen and pelvis showed a spot on the liver. Cytopathology confirms non-small cell carcinoma with features consistent with poorly differentiated lung adenocarcinoma. CTA revealed 40 x 63 mm masslike density within the superior segment of the right lower lobe. Transitioned to PO steroids. Continue PO steroids and GI prophylaxis Tylenol, Oxycodene, and Morphine SL prn pain Continue Keppra for seizure precautions. Neurologically stable. Continue palliative radiotherapy to control his symptoms. Outpatient follow up with radiation oncology. Encouraged PT/OT participation today. Palliative care following, appreciate recommendations. Patient requests to remain full code at this time. Awaiting further case management/ social work assistance for placement. 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 There was right frontotemporoparietal lobe vasogenic edema. Mass effect and partial effacement of the right lateral ventricle. No significant midline shift. Continue Keppra. Tapering Decadron per neurology/ oncology. Continue PO steroids BID. (4) COPD (chronic obstructive pulmonary disease) Current Visit: No Status: Chronic Assessment and plan: Underlying COPD. Patient is not in exacerbation. Continue inhalers. Qualifiers: COPD type: unspecified COPD Qualified Code(s): J44.9 - Chronic obstructive pulmonary disease, unspecified (5) Tobacco abuse Current Visit: No Status: Chronic Assessment and plan: Nicotine patch. Tobacco cessation (6) Acute metabolic encephalopathy Current Visit: Yes Status: Acute Assessment and plan: Resolving. Likely secondary to brain metastasis and history of psych disorders. His son states that he is back to baseline. AOx3. Continue to monitor. (7) Schizophrenia Current Visit: No Status: Acute Assessment and plan: Outpatient management. Qualifiers: Schizophrenia type: disorganized schizophrenia Qualified Code(s): F20.1 - Disorganized schizophrenia (8) Hypertension Current Visit: No Status: Acute Assessment and plan: Continue antihypertensive meds. Qualifiers: Hypertension type: essential hypertension Qualified Code(s): I10 - Essential (primary) hypertension (9) Renal calculus Current Visit: No Status: Acute Assessment and plan: CT revealed 1-2 mm calculus in the proximal right ureter and 2-3 mm calculus on the left renal pole. Patient has had a history of renal stones requiring nephrostomy tubes and well known to the urology service. Continue to treat conservatively, stones should pass on their own. Continue antiemetics and pain control. (10) DVT prophylaxis Current Visit: No Status: Acute Assessment and plan: SCDs. Code(s): [id number] - (11) Pleural effusion due to another disorder Current Visit: Yes Status: Acute Assessment and plan: Bronchoscopy on 12/16/17 Results: RLL FNA: Non-small cell carcinoma with features consistent with a poorly differentiated lung adenocarcinoma RLL BAL: Negative for malignancy. Right hilum FNA: Negative for malignancy. CTA reveals no PE and small bilateral pleural effusions with bibasilar atelectasis, new since previous chest CT. Lasix 40mg IV x1 given 12/20/17 No respiratory distress. Continue Lasix 40mg PO daily - Time Spent With Patient Total time spent is greater than 50% in coordination of care (as documented) at patient's floor/unit and/or counseling patient: - Subjective Interval history: Patient seen and examined. He reports feeling improved today and would like to go home. Conditional discharge order in place. Awaiting further social work/ case management recommendations for discharge planning. Encouraged PT/OT participation today. - Constitutional Vitals: Temp Pulse Resp BP Pulse Ox 98.3 F 61 17 139/78 98 12/24/17 06:43 12/24/17 06:43 12/24/17 06:43 12/24/17 06:43 12/24/17 06:43 General appearance: Present: cooperative, A&O X 3, no acute distress, answers questions appropriately - Head Head exam: Present: atraumatic, normocephalic - Eye Eye exam: Present: PERRL, conjuntiva pink, sclera anicteric Pupils: Present: PERRL - ENT ENT exam: Present: mucous membranes dry, normal oropharynx - Neck Neck exam general surgery: Present: supple, trachea midline. Absent: lymphadenopathy - Respiratory Respiratory exam: Present: CTAB. Absent: accessory muscle use, rales, rhonchi, wheezes Additional comments: 2L O2 via NC - Cardiovascular Cardiovascular exam: Present: RRR, +S1, +S2. Absent: diastolic murmur, gallop, rubs, systolic murmur - GI/Abdominal GI/Abdominal exam: Present: normal bowel sounds, soft, no peritoneal signs. Absent: distended, tenderness - Extremities Exam Extremities exam: Present: warm, radial pulses palpable and symmetrical. Absent : calf tenderness, cyanotic, pedal edema - Back Exam Back exam: Present: normal inspection. Absent: tenderness - Neurological Exam Neurological exam: Present: CN II-XII intact, oriented X3, no focal deficits. Absent: pronater drift, facial droop, speech deficit - Psychiatric Psychiatric exam: Present: flat affect, normal mood - Skin Skin exam: Present: dry, intact, normal color, warm Internal Medicine: Result - Labs CBC & Chem 7: 12/20/17 04:22 12/23/17 05:16 - Pulse Oximetry Interpretation Digit-Finger Pulse Oximetry Readin (2L O2 via NC) Consult Discharge Plan - Plan Additional Instructions: Please also follow up with appointments set up by [address] Department[address] Provided at discharge Referrals: Aixa Gonzalez, FIRE TENDER [Advanced Practice Nurse] - 12/30/17 2:00 pm (Please follow up as schedule...) Prescriptions: Albuterol Sulfate [Albuterol Inhaler] 2 puff IH Q2HR PRN #1 inhaler PRN Reason: Shortness Of Breath/Wheezing MORPHINE SUL Oral CONC [Roxanol Oral Conc] 5 mg SL Q4HR PRN 7 Days #14 oral.syg PRN Reason: Severe Pain levETIRAcetam [Keppra] 500 mg PO Q12HR #60 tablet Benzocaine/Menthol Kb [Cepacol Sore Throat Lozenge] 1 each MM Q2H PRN #14 lozenge PRN Reason: Sore Throat Benzonatate [Tessalon] 100 mg PO TID PRN #50 capsule PRN Reason: Cough Budesonide/Formoterol 160/4.5 [Symbicort 160/4.5] 2 puff IH BIDR #1 inhaler Dexamethasone [Decadron] 4 mg PO BID #14 tablet Dicyclomine [Bentyl] 20 mg PO Q6H PRN #30 capsule PRN Reason: abdominal cramping DULoxetine [Cymbalta] 30 mg PO DAILY #30 capsule. Furosemide [Lasix] 40 mg PO DAILY #30 tablet Nicotine Patch [Nicoderm] 21 mg TD DAILY #30 patch.td24 Omeprazole [PriLOSEC] 40 mg PO BIDAC #60 capsule. OxyCODONPatricio Immed Rel [Roxicodone 5 MG] 5 mg PO Q6H PRN 7 Days #30 tablet PRN Reason: Mild To Moderate Pain Polyethylene Glycol 3350 [MiraLAX] 17 gm PO DAILY PRN #30 powd.pack PRN Reason: Constipation risperiDONE [RisperDAL] 1 mg PO BID #60 tablet traZODone [TraZODone] 100 mg PO HS #30 tablet <Brian Pan H - Last Filed: 12/24/17 14:38> Date of Encounter: 12/24/17 - Assessment and plan (1) DVT prophylaxis Current Visit: No Status: Acute Code(s): [id number] - (2) Schizophrenia Current Visit: No Status: Acute Qualifiers: Schizophrenia type: disorganized schizophrenia Qualified Code(s): F20.1 - Disorganized schizophrenia (3) COPD (chronic obstructive pulmonary disease) Current Visit: No Status: Chronic Qualifiers: COPD type: unspecified COPD Qualified Code(s): J44.9 - Chronic obstructive pulmonary disease, unspecified (4) Tobacco abuse Current Visit: No Status: Chronic (5) Hypertension Current Visit: No Status: Acute Qualifiers: Hypertension type: essential hypertension Qualified Code(s): I10 - Essential (primary) hypertension (6) Renal calculus Current Visit: No Status: Acute (7) Vasogenic brain edema Current Visit: Yes Status: Acute (8) 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 Current Visit: Yes Status: Acute (9) 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 Current Visit: Yes Status: Acute (10) Acute metabolic encephalopathy Current Visit: Yes Status: Acute (11) Pleural effusion due to another disorder Current Visit: Yes Status: Acute - Time Spent With Patient Total time spent is greater than 50% in coordination of care (as documented) at patient's floor/unit and/or counseling patient: - Constitutional Vitals: Temp Pulse Resp BP Pulse Ox 98.0 F 67 16 121/71 97 12/24/17 10:52 12/24/17 10:52 12/24/17 10:52 12/24/17 10:52 12/24/17 10:52 Internal Medicine: Result - Labs CBC & Chem 7: 12/20/17 04:22 12/23/17 05:16 - Attending Attestation Metastatic adenocarcinoma of the lung Very poor prognosis in the short run. Continue Decadron. Palliative consulted. The patient wants to be a full code. receiving palliative radiotherapy I examined this patient and my medical decision-making was reviewed with the Resident Physician. I agree with the documented findings, disposition and treatment plan as described except to the extent set forth below.
[2017-12-24] MEDS: Nicotine 21 MG PATCH.TD24 TD SCH (10:01)
[2017-12-24] MEDS: risperiDONE 1 MG TABLET PO SCH ×2 (10:01→22:49)
[2017-12-24] MEDS: *HR* OxyCODONE Immed Rel 5 MG TABLET PO PRN (10:01)
[2017-12-24] MEDS: Furosemide 40 MG TABLET PO SCH (10:01)
[2017-12-24] MEDS: Budesonide/Formoterol 160/4.5 MDI IH SCH ×2 (10:33→19:30)
--- NOTE | 2017-12-24 11:51 | Event Note ---
Date of Encounter: 12/24/17 Time of Encounter: 11:00 I attended pt room with LEVON Jones to discuss discharge plan with pt. Patient's son Camilo is present in the room for conversation. Patient refused to go to an ECF on discharge and demands to go home. When Mud Jack Nozzleman questioned ability to be cared for in the home, since his mother cannot care for him, and pt's son Camilo states that he will be there to care for the patient. He again states, "I'm not going to any intermediate, I want to go home ". 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 Please refer to Social Service note for details.
[2017-12-24] MEDS: traZODone 50 MG TABLET PO SCH (22:45)
[2017-12-25] MEDS: levETIRAcetam 250 MG TABLET PO SCH (06:06)
--- NOTE | 2017-12-25 07:06 | Internal Med Progress Note ---
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 MRI brain with large parieto-occipital brain mets with slight midline shift. Leptomeningeal carcinomatosis. CT abdomen and pelvis showed a spot on the liver. Cytopathology confirms non-small cell carcinoma with features consistent with poorly differentiated lung adenocarcinoma. CTA revealed 40 x 63 mm masslike density within the superior segment of the right lower lobe. Transitioned to PO steroids. Continue PO steroids and GI prophylaxis Tylenol, Oxycodene, and Morphine SL prn pain Continue Keppra for seizure precautions. Neurologically stable. Continue palliative radiotherapy to control his symptoms. Outpatient follow up with radiation oncology. Encouraged PT/OT participation. Palliative care following, appreciate recommendations. Patient requests to remain full code at this time. 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 Current Visit: Yes Status: Acute (3) Vasogenic brain edema Current Visit: Yes Status: Acute (4) COPD (chronic obstructive pulmonary disease) Current Visit: No Status: Chronic Qualifiers: COPD type: unspecified COPD Qualified Code(s): J44.9 - Chronic obstructive pulmonary disease, unspecified (5) Tobacco abuse Current Visit: No Status: Chronic (6) Acute metabolic encephalopathy Current Visit: Yes Status: Acute (7) Schizophrenia Current Visit: No Status: Acute Qualifiers: Schizophrenia type: disorganized schizophrenia Qualified Code(s): F20.1 - Disorganized schizophrenia (8) Hypertension Current Visit: No Status: Acute Qualifiers: Hypertension type: essential hypertension Qualified Code(s): I10 - Essential (primary) hypertension (9) Renal calculus Current Visit: No Status: Acute (10) DVT prophylaxis Current Visit: No Status: Acute Code(s): [id number] - (11) Pleural effusion due to another disorder Current Visit: Yes Status: Acute - Time Spent With Patient Total time spent is greater than 50% in coordination of care (as documented) at patient's floor/unit and/or counseling patient: - Subjective Interval history: Patient seen and examined. He reports feeling improved today and would like to go home. Conditional discharge order in place. Anticipate discharge today. - Constitutional Vitals: Temp Pulse Resp BP Pulse Ox 98.8 F 72 16 142/74 94 12/25/17 04:05 12/25/17 04:05 12/25/17 04:05 12/25/17 04:05 12/25/17 04:05 General appearance: Present: cooperative, A&O X 3, no acute distress, answers questions appropriately - Head Head exam: Present: atraumatic, normocephalic - Eye Eye exam: Present: PERRL, conjuntiva pink, sclera anicteric Pupils: Present: PERRL - ENT ENT exam: Present: mucous membranes moist, normal oropharynx - Neck Neck exam general surgery: Present: supple, trachea midline. Absent: lymphadenopathy - Respiratory Respiratory exam: Present: CTAB. Absent: accessory muscle use, rales, rhonchi, wheezes - Cardiovascular Cardiovascular exam: Present: RRR, +S1, +S2. Absent: diastolic murmur, gallop, rubs, systolic murmur - GI/Abdominal GI/Abdominal exam: Present: normal bowel sounds, soft, no peritoneal signs. Absent: distended, tenderness - Extremities Exam Extremities exam: Present: warm, radial pulses palpable and symmetrical. Absent : calf tenderness, cyanotic, pedal edema - Back Exam Back exam: Present: normal inspection. Absent: tenderness - Neurological Exam Neurological exam: Present: CN II-XII intact, oriented X3, no focal deficits. Absent: pronater drift, facial droop, speech deficit - Psychiatric Psychiatric exam: Present: normal affect, normal mood - Skin Skin exam: Present: dry, intact Internal Medicine: Result - Labs CBC & Chem 7: 12/20/17 04:22 12/23/17 05:16 - Pulse Oximetry Interpretation Digit-Finger Pulse Oximetry Readin (4L O2 via NC) Consult Discharge Plan - Plan Additional Instructions: Please also follow up with appointments set up by [address] Department[address] Provided at discharge Referrals: Aixa Gonzalez, BODY FITTER [Advanced Practice Nurse] - 12/30/17 2:00 pm (Please follow up as schedule...) Prescriptions: Albuterol Sulfate [Albuterol Inhaler] 2 puff IH Q2HR PRN #1 inhaler PRN Reason: Shortness Of Breath/Wheezing MORPHINE SUL Oral CONC [Roxanol Oral Conc] 5 mg SL Q4HR PRN 7 Days #14 oral.syg PRN Reason: Severe Pain levETIRAcetam [Keppra] 500 mg PO Q12HR #60 tablet Benzocaine/Menthol Kb [Cepacol Sore Throat Lozenge] 1 each MM Q2H PRN #14 lozenge PRN Reason: Sore Throat Benzonatate [Tessalon] 100 mg PO TID PRN #50 capsule PRN Reason: Cough Budesonide/Formoterol 160/4.5 [Symbicort 160/4.5] 2 puff IH BIDR #1 inhaler Dexamethasone [Decadron] 4 mg PO BID #14 tablet Dicyclomine [Bentyl] 20 mg PO Q6H PRN #30 capsule PRN Reason: abdominal cramping DULoxetine [Cymbalta] 30 mg PO DAILY #30 capsule. Furosemide [Lasix] 40 mg PO DAILY #30 tablet Nicotine Patch [Nicoderm] 21 mg TD DAILY #30 patch.td24 Omeprazole [PriLOSEC] 40 mg PO BIDAC #60 capsule. OxyCODONPatricio Immed Rel [Roxicodone 5 MG] 5 mg PO Q6H PRN 7 Days #30 tablet PRN Reason: Mild To Moderate Pain Polyethylene Glycol 3350 [MiraLAX] 17 gm PO DAILY PRN #30 powd.pack PRN Reason: Constipation risperiDONE [RisperDAL] 1 mg PO BID #60 tablet traZODone [TraZODone] 100 mg PO HS #30 tablet <Brian Pan H - Last Filed: 12/25/17 11:27> Date of Encounter: 12/25/17 - Assessment and plan (1) DVT prophylaxis Current Visit: No Status: Acute Code(s): [id number] - (2) Schizophrenia Current Visit: No Status: Acute Qualifiers: Schizophrenia type: disorganized schizophrenia Qualified Code(s): F20.1 - Disorganized schizophrenia (3) COPD (chronic obstructive pulmonary disease) Current Visit: No Status: Chronic Qualifiers: COPD type: unspecified COPD Qualified Code(s): J44.9 - Chronic obstructive pulmonary disease, unspecified (4) Tobacco abuse Current Visit: No Status: Chronic (5) Hypertension Current Visit: No Status: Acute Qualifiers: Hypertension type: essential hypertension Qualified Code(s): I10 - Essential (primary) hypertension (6) Renal calculus Current Visit: No Status: Acute (7) Vasogenic brain edema Current Visit: Yes Status: Acute (8) 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 Current Visit: Yes Status: Acute (9) 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 Current Visit: Yes Status: Acute (10) Acute metabolic encephalopathy Current Visit: Yes Status: Acute (11) Pleural effusion due to another disorder Current Visit: Yes Status: Acute - Time Spent With Patient Total time spent is greater than 50% in coordination of care (as documented) at patient's floor/unit and/or counseling patient: - Constitutional Vitals: Temp Pulse Resp BP Pulse Ox 97.7 F 77 16 184/99 95 12/25/17 10:36 12/25/17 10:36 12/25/17 10:36 12/25/17 10:36 12/25/17 10:36 Internal Medicine: Result - Labs CBC & Chem 7: 12/20/17 04:22 12/23/17 05:16 - Attending Attestation Metastatic adenocarcinoma of the lung Very poor prognosis in the short run. Continue Decadron. Palliative consulted. The patient wants to be a full code. receiving palliative radiotherapy I examined this patient and my medical decision-making was reviewed with the Resident Physician. I agree with the documented findings, disposition and treatment plan as described except to the extent set forth below.
[2017-12-25] MEDS: Budesonide/Formoterol 160/4.5 MDI IH SCH (07:42)
[2017-12-25] MEDS: risperiDONE 1 MG TABLET PO SCH (08:34)
[2017-12-25] MEDS: Nicotine 21 MG PATCH.TD24 TD SCH (08:34)
[2017-12-25] MEDS: Furosemide 40 MG TABLET PO SCH (08:34)
[2017-12-25] MEDS: *HR* OxyCODONE Immed Rel 5 MG TABLET PO PRN (15:31)
[2017-12-25 17:16] VITALS: BP 170/100
--- NOTE | 2017-12-28 10:28 | Electrocardiograph Report ---
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
== END 2017-12-25 17:34 | disposition home health service (06) | DRG 136 ==
LOC: 2ANU
PROVIDERS: ADMIT Internal Medicine; ATTEND Internal Medicine